=== PATIENT | male | born 1960 | race Caucasian/White ===

== ENCOUNTER 2017-04-20 00:33 | Emergency (ER) | payer MEDICAID, OTHER ==
[2017-04-20] MEDS ORDERED: Iopamidol 755 MG/ML 500 ML Multipack Bottle IVPUSH STA (01:13)
[2017-04-20] MEDS ORDERED: cefTRIAXone 1 GM in Premix Bag 1 BAG IV ONE (01:18)
--- NOTE | 2017-04-20 01:22 | EDM.PDOC ---
ED HPI GENERAL MEDICAL PROBLEM - General Chief Complaint: ENT Problem Stated Complaint: NECK SWELLING Time Seen by Provider: 04/20/17 01:12 - History of Present Illness INITIAL COMMENTS - FREE TEXT/NARRATIVE: HISTORY AND PHYSICAL: History of present illness: Patient 56-year-old white male who presents with a concern of dental abscess and submental pain patient states that swelling below his jaw and his anterior neck worse over the last 24 hours with pain he denies fever chills nausea vomiting he is extremely poor general dentition he denies shortness of breath denies stridor denies changes voice. Review of systems: As per history of present illness and below otherwise all systems reviewed and negative. Past medical history: As per history of present illness and as reviewed below otherwise noncontributory. Surgical history: As per history of present illness and as reviewed below otherwise noncontributory. Social history: No reported history of drug or alcohol abuse. Family history: As per history of present illness and as reviewed below otherwise noncontributory. Physical exam: HEENT: Atraumatic, normocephalic, pupils reactive, negative for conjunctival pallor or scleral icterus, mucous membranes moist, throat clear, neck supple, patient has some submental fullness and tenderness to palpation no discrete mass minimal erythema no induration no trismus no hot potato voice, trachea midline. Generally poor dentition with multiple dental caries and secondary dental fracture Lungs: Clear to auscultation, breath sounds equal bilaterally, chest nontender. Heart: S1S2, regular, negative for clicks, rubs, or JVD. Abdomen: Soft, nondistended, nontender. Negative for masses or hepatosplenomegaly. Negative for costovertebral tenderness. Pelvis: Stable nontender. Genitourinary: Deferred. Rectal: Deferred. Extremities: Atraumatic, negative for cords or calf pain. Neurovascular unremarkable. Neuro: Awake, alert, oriented. Cranial nerves II through XII unremarkable. Cerebellum unremarkable. Motor and sensory unremarkable throughout. Exam nonfocal. Diagnostics: CBC CMP CT neck x-ray mandible Therapeutics: Normal saline 1 L bolus clindamycin 900 mg IV Rocephin 1 g IV Impression: #1 dental abscess #2 rule out submental infection Definitive disposition and diagnosis as appropriate pending reevaluation and review of above. Left Lower Ear Pain Score (Numeric/FACES): 6 - Related Data Allergies Allergy/AdvReac Type Severity Reaction Status Date / Time No Known Allergies Allergy Verified 04/20/17 00:43 Home Meds: Home Meds Apixaban [Eliquis] 5 mg PO BID 04/20/17 [History] Aspirin 81 mg PO DAILY 04/20/17 [History] Gabapentin [Neurontin] 300 mg PO BID 04/20/17 [History] Morphine [MS Contin] 30 mg PO BID 04/20/17 [History] Prednisone [IJD: Prednisone] 5 mg PO DAILY 04/20/17 [History] oxyCODONE HCl/Acetaminophen [Percocet 10-325 mg Tablet] 10 mg PO QID 04/20/17 [ History] Past Medical History Other HEENT History: ear infection "couple of months ago" Cardiovascular History: Reports: Blood Clots/VTE/DVT, [place] Other Cardiovascular History: with 1 stent, blood clot right leg Other Genitourinary History: Bladder tumor Musculoskeletal History: Reports: Arthritis - Infectious Disease History Infectious Disease History: Reports: Chicken Pox, Measles, Mumps, Scarlet Fever Social & Family History - Family History Family Medical History: Noncontributory - Tobacco Use Smoking Status *Q: Former Smoker Used Tobacco, but Quit: Yes Month Tobacco Last Used: "months ago" - Caffeine Use Caffeine Use: Reports: Coffee Caffeine Use Comment: 2cups/week - Recreational Drug Use Recreational Drug Use: No ED ROS GENERAL - Review of Systems Review Of Systems: ROS reveals no pertinent complaints other than HPI. ED EXAM, GENERAL - Physical Exam Exam: See Below (See dictation) Course - Vital Signs Last Recorded V/S: Last Vital Signs Temp 37.1 C 04/20/17 02:34 Pulse 82 04/20/17 02:34 Resp 16 04/20/17 02:34 BP 150/70 H 04/20/17 02:34 Pulse Ox 98 04/20/17 02:34 - Orders/Labs/Meds Orders: Active Orders 24 hr Category Date Time Status Mandible Comp Min 4V [CR] Stat Exams 04/20/17 00:35 Taken Soft Tissue Neck w Cont [CT] Stat Exams 04/20/17 01:11 Taken CULTURE BLOOD [BC] Stat Lab 04/20/17 01:19 Results CULTURE BLOOD [BC] Stat Lab 04/20/17 01:29 Results Blood Culture x2 Reflex Set [OM.PC] Stat Oth 04/20/17 01:22 Ordered Labs: Laboratory Tests 04/20/17 04/20/17 04/20/17 Range/Units 01:15 01:15 01:15 WBC 14.70 H (4.0-11.0) K/uL RBC 4.44 L (4.50-5.90) M/uL Hgb 12.0 L (13.0-17.0) g/dL Hct 38.8 (38.0-50.0) % MCV 87.4 (80.0-98.0) fL MCH 27.0 (27.0-32.0) pg MCHC 30.9 L (31.0-37.0) g/dL RDW Std Deviation 50.0 (28.0-62.0) fl RDW Coeff of Dwain 16 H (11.0-15.0) % Plt Count 203 (150-400) K/uL MPV 10.50 (7.40-12.00) fL Neut % (Auto) 68.0 (48.0-80.0) % Lymph % (Auto) 21.3 (16.0-40.0) % [place] % (Auto) 8.2 (0.0-15.0) % Eos % (Auto) 2.2 (0.0-7.0) % Baso % (Auto) 0.3 (0.0-1.5) % Neut # (Auto) 10.0 H (1.4-5.7) K/uL Lymph # (Auto) 3.1 H (0.6-2.4) K/uL [place] # (Auto) 1.2 H (0.0-0.8) K/uL Eos # (Auto) 0.3 (0.0-0.7) K/uL Baso # (Auto) 0.0 (0.0-0.1) K/uL Nucleated RBC % 0.0 /100WBC Nucleated RBCs # 0 K/uL Lactate 1.7 (0.20-2.00) mmol/L Sodium 144 (136-146) mmol/L Potassium 3.7 (3.5-5.1) mmol/L Chloride 112 H (98-110) mmol/L Carbon Dioxide 22 (21-31) mmol/L BUN 13 (6.0-23.0) mg/dL Creatinine 0.8 (0.6-1.5) mg/dL Est Cr Clr Drug Dosing 121.71 mL/min Estimated GFR (MDRD) > 60.0 ml/min Glucose 91 (60-110) mg/dL Calcium 9.1 (8.8-10.8) mg/dL Total Bilirubin 0.3 (0.1-1.5) mg/dL AST 13 (5-40) IU/L ALT 18 (8-54) IU/L Alkaline Phosphatase 62 (40-150) Total Protein 6.9 (6.0-8.0) g/dL Albumin 3.8 (3.5-5.0) g/dL Globulin 3.1 (2.0-3.5) g/dL Albumin/Globulin Ratio 1.2 L (1.3-2.8) Meds: Medications Discontinued Medications Generic Name Dose Route Start Last Admin Trade Name Freq PRN Reason Stop Dose Admin Clindamycin Phosphate 900 mg/ 56 mls @ 100 mls/hr 04/20/17 01:18 04/20/17 02: 31 Sodium Chloride IV 04/20/17 01:49 Not Given ONETIME ONE Ceftriaxone Sodium/Dextrose 1 50 mls @ 100 mls/hr 04/20/17 01:18 04/20/17 01: 39 gm/ Premix IV 04/20/17 01:47 100 mls/hr ONETIME ONE Administration Clindamycin Phosphate 900 mg/ 50 mls @ 100 mls/hr 04/20/17 01:35 04/20/17 02: 28 Premix IV 04/20/17 02:04 100 mls/hr ONETIME ONE Administration Iopamidol 75 ml 04/20/17 01:13 04/20/17 01:14 Isovue Multipack-370 (76%) IVPUSH 04/20/17 01:14 80 ml ONETIME STA Administration Ketorolac Tromethamine 30 mg 04/20/17 01:50 04/20/17 01:55 Toradol IVPUSH 04/20/17 01:51 30 mg ONETIME ONE Administration Morphine Sulfate 2 mg 04/20/17 03:00 Morphine IVPUSH 04/20/17 03:01 ONETIME ONE Departure - Departure Time of Disposition: 03:09 Disposition: DC/Tfer to Other 70 Condition: good Clinical Impression: Abscess of submental region - Discharge Information Forms: ED Department Discharge - My Orders Last 24 Hours: My Active Orders 04/20/17 00:35 Mandible Comp Min 4V [CR] Stat 04/20/17 01:11 Soft Tissue Neck w Cont [CT] Stat 04/20/17 01:19 CULTURE BLOOD [BC] Stat 04/20/17 01:22 Blood Culture x2 Reflex Set [OM.PC] Stat 04/20/17 01:29 CULTURE BLOOD [BC] Stat - Assessment/Plan Last 24 Hours: My Active Orders 04/20/17 00:35 Mandible Comp Min 4V [CR] Stat 04/20/17 01:11 Soft Tissue Neck w Cont [CT] Stat 04/20/17 01:19 CULTURE BLOOD [BC] Stat 04/20/17 01:22 Blood Culture x2 Reflex Set [OM.PC] Stat 04/20/17 01:29 CULTURE BLOOD [BC] Stat
[2017-04-20] MEDS ORDERED: Clindamycin Phosphate in D5W 900 MG in Premix Bag 1 BAG IV ONE ×2 (01:35)
[2017-04-20] MEDS ORDERED: Ketorolac 30 MG/ML SDV IVPUSH ONE (01:50)
[2017-04-20 01:54] LABS: CHLORIDE,CL 112 mmol/L (98-110); SODIUM,NA 144 mmol/L (136-146)
[2017-04-20] MEDS ORDERED: Morphine 2 MG/ML Syringe IVPUSH ONE (03:00)
[2017-04-20 04:03] VITALS: BP 125/69
--- NOTE | 2017-04-21 15:08 | CR ---
EXAM DATE: 04/20/17 PATIENT'S AGE: 56 Patient: ELVIA HONEYCUTT Facility: [place], [place] Site . Site : 1960 Study: XRay Facial [id number]/21/2017 1:03:33 AM Ordering Physician: Doctor Christine Final Report: INDICATION: swelling to lt mandible without injury TECHNIQUE: Facial radiograph 3 views COMPARISON: None FINDINGS: Bones: Alignment is normal. No acute fractures or aggressive bone lesions identified. Sinuses and orbits: Unremarkable. Soft tissues: Unremarkable. No radiopaque foreign bodies are seen. IMPRESSION: 1. Unremarkable appearance of the mandible. Soft tissue abnormalities are better assessed by contrast enhanced CT. Dictated by: Eduar Modi MD @ 04/20/2017 01:06:20 (Electronic Signature) Report Signed by Proxy. [facility] IRV[facility] MEDICAL CENTERLupe
--- NOTE | 2017-04-21 15:09 | CT ---
EXAM DATE: 04/20/17 PATIENT'S AGE: 56 Patient: ELVIA HONEYCUTT Facility: [place], [place] Site Site : 1960 Study: CT ST Neck [id number]/21/2017 2:38:07 AM Ordering Physician: DOCTOR VERDUGO Final Report: INDICATION: Left facial swelling TECHNIQUE: CT soft tissue of the neck was acquired with i.v. contrast. Coronal and sagittal reformats were obtained. COMPARISON: None FINDINGS: Skull base: Multiple large bilateral dental cavities are noted within the mandibular and maxillary teeth. A retention cyst or polyp is present in the right maxillary sinus. Mucosal thickening is noted in the ethmoid sinuses bilaterally. Pharynx: There is an oblong fluid collection present within the left sublingual space with peripheral infiltration of the fat. It measures 2.7 x 0.8 cm. No retropharyngeal fluid collections are identified. No submandibular sialolith is seen. No CT evidence of tonsillar or peritonsillar abscess seen. The epiglottis is normal in appearance. There is an enhancing soft tissue nodule present within the right vallecula measuring 1.3 cm. Larynx and trachea: Unremarkable. Salivary glands: Unremarkable. Thyroid gland: Unremarkable. Vascular: Unremarkable for age. Bones: Unremarkable for age. Moderate degenerative disc narrowing is present at C4-5. Misc: There is a reactive 6 mm left sublingual lymph nodes seen. A 1 cm left hilar lymph node is present. Lung apices: Unremarkable. IMPRESSION: 1. There is an oblong fluid collection present within the left sublingual space with peripheral infiltration of the fat. It measures 2.7 x 0.8 cm. This may represent either a sublingual abscess or infected ranula. 2. There is a suspected enhancing nodule within the right vallecula. Further evaluation with direct visualization recommended to exclude a pharyngeal neoplasm. 3. Left jugular adenopathy noted. Dictated by Eduar Modi MD @ 04/20/2017 2:45:20 AM Dictated by: Eduar Modi MD @ 04/20/2017 02:45:28 (Electronic Signature) Report Signed by Proxy. ALLEN
== END 2017-04-20 04:01 | disposition other institution (70) ==
LOC: MW.ED 00:33
DX: L02.01 Cutaneous abscess of face (principal); K04.7 Periapical abscess without sinus; I25.2 Old myocardial infarction; M19.90 Unspecified osteoarthritis, unspecified site; Z87.891 Personal history of nicotine dependence; Z79.899 Other long term (current) drug therapy; Z79.82 Long term (current) use of aspirin
CPT/HCPCS: 36415; 70110; 70491; 80053; 83605; 85025; 87040; 96365; 96367; 96375; 99285; J0696; J1885; J2270; Q9967

== ENCOUNTER 2019-01-08 09:06 | Observation (INO) | payer MEDICAID ==
[2019-01-08] MEDS ORDERED: Sodium Chloride 0.9% 2.5 ML Syringe FLUSH PRN (09:10)
[2019-01-08] MEDS ORDERED: Sodium Chloride 0.9% 10 ML Syringe FLUSH PRN (09:10)
[2019-01-08] MEDS ORDERED: Ketorolac 30 MG/ML SDV IVPUSH ONE (09:29)
--- NOTE | 2019-01-08 09:29 | EDM.PDOC ---
ED HPI GENERAL MEDICAL PROBLEM - General Chief Complaint: Chest Pain Stated Complaint: CHEAT PAIN Time Seen by Provider: 01/08/19 09:20 Source of Information: Reports: Patient History Limitations: Reports: No Limitations - History of Present Illness INITIAL COMMENTS - FREE TEXT/NARRATIVE: History of present illness: []Patient was cleaning his bathroom 5 days ago with each and inhaled therapy and inhaled chemical that caused burning in his lungs. Patient was fine for a few days then 2 days ago he started having 10/10 severe chest pain with breathing. Denies any other trauma. Patient does have a history of reactive stent placement and as a DVT in his leg approximately 3 years ago. His chest pain now is 6/10 he was brought in by EMS given 2 nitroglycerin sprays and 4 baby aspirin in route. Review of systems: As per history of present illness and below otherwise all systems reviewed and negative. Past medical history: As per history of present illness and as reviewed below otherwise noncontributory. Surgical history: As per history of present illness and as reviewed below otherwise noncontributory. Social history: No reported history of drug or alcohol abuse. Family history: As per history of present illness and as reviewed below otherwise noncontributory. Physical exam: General: Well developed, well nourished in NAD HEENT: Atraumatic, normocephalic, pupils reactive, negative for conjunctival pallor or scleral icterus, mucous membranes moist, throat clear, neck supple, nontender, trachea midline. Lungs: Clear to auscultation, breath sounds equal bilaterally, chest nontender. Heart: S1S2, regular, negative for clicks, rubs, or JVD. Abdomen: NABS, Soft, nondistended, nontender. Negative for masses or hepatosplenomegaly. Negative for costovertebral tenderness. Pelvis: Stable nontender. Genitourinary: Deferred. Rectal: Deferred. Extremities: Atraumatic, negative for cords or calf pain. Neurovascular unremarkable. Neuro: Awake, alert, oriented. Cranial nerves II through XII unremarkable. Cerebellum unremarkable. Motor and sensory unremarkable throughout. Exam nonfocal. Skin:warm and dry Diagnostics: CBC, chemistry, troponin, chest x-ray, EKG, d-dimer, CT angiogram of his chest- moderate load of central clot Therapeutics: There initially was going to start heparin however Dr. Crockett requested Lovenox ED Course: She remained stable he is admitted to Dr. Doan hospitalists Impression: PE Prescriptions: On Plan: Admit for observation Definitive disposition and diagnosis as appropriate pending reevaluation and review of above. i Chest Pain Score (Numeric/FACES): 6 - Related Data Allergies Allergy/AdvReac Type Severity Reaction Status Date / Time No Known Allergies Allergy Verified 01/08/19 09:18 Home Meds: Home Meds Aspirin 81 mg PO DAILY 04/20/17 [History] Gabapentin [Neurontin] 300 mg PO BID 04/20/17 [History] Morphine [MS Contin] 30 mg PO BID 04/20/17 [History] Prednisone [IJD: Prednisone] 5 mg PO DAILY 04/20/17 [History] oxyCODONE HCl/Acetaminophen [Percocet 10-325 mg Tablet] 10 mg PO QID 04/20/17 [ History] Ranitidine HCl [Ranitidine] 300 mg PO BID 01/08/19 [History] atorvaSTATin [Lipitor] 1 tab DAILY 01/08/19 [History] Past Medical History Other HEENT History: ear infection "couple of months ago" Cardiovascular History: Reports: Blood Clots/VTE/DVT, [place], Stents Other Cardiovascular History: with 1 stent, blood clot right leg Other Genitourinary History: Bladder tumor Musculoskeletal History: Reports: Arthritis Hematologic History: Reports: Anticoagulation Therapy - Infectious Disease History Infectious Disease History: Reports: Chicken Pox, Measles, Mumps, Scarlet Fever - Past Surgical History HEENT Surgical History: Reports: Adenoidectomy, Tonsillectomy Social & Family History - Family History Family Medical History: Noncontributory - Tobacco Use Smoking Status *Q: Former Smoker Used Tobacco, but Quit: Yes Month/Year Tobacco Last Used: 2015 - Caffeine Use Caffeine Use: Reports: Coffee Caffeine Use Comment: 2cups/week - Recreational Drug Use Recreational Drug Use: No ED ROS GENERAL - Review of Systems Review Of Systems: ROS reveals no pertinent complaints other than HPI. ED EXAM, GENERAL - Physical Exam Exam: See Below (See history of present illness) Course - Vital Signs Last Recorded V/S: Last Vital Signs Temp 99.2 F 01/08/19 09:14 Pulse 87 01/08/19 15:30 Resp 20 01/08/19 16:00 BP 129/85 01/08/19 16:30 Pulse Ox 95 01/08/19 16:00 - Orders/Labs/Meds Orders: Active Orders 24 hr Category Date Time Status EKG Documentation Completion [RC] STAT Care 01/08/19 09:10 Active Sodium Chloride 0.9% [Saline Flush] Med 01/08/19 09:10 Active 10 ml FLUSH ASDIRECTED PRN Sodium Chloride 0.9% [Saline Flush] Med 01/08/19 09:10 Active 2.5 ml FLUSH ASDIRECTED PRN Saline Lock Insert [OM.PC] Stat Oth 01/08/19 09:10 Ordered Medication Orders Acetaminophen (Tylenol) 650 mg PO Q4H PRN PRN Reason: Pain (mild 1-3) Albuterol (Proventil Neb Soln) 2.5 mg NEB Q2H PRN PRN Reason: Shortness Of Breath/wheezing Aspirin (Aspirin) 81 mg PO DAILY [facility] Atorvastatin Calcium (Lipitor) 10 mg PO DAILY [facility] Enoxaparin Sodium (Lovenox) 90 mg SUBCUT Q12HR [facility] Gabapentin (Neurontin) 300 mg PO BID [facility] Hydromorphone HCl (Dilaudid) 1 mg IVPUSH Q3H PRN PRN Reason: Pain (severe 7-10) Morphine Sulfate (Ms Contin) 30 mg PO BID [facility] Ondansetron HCl (Zofran) 4 mg IVPUSH Q4H PRN PRN Reason: Nausea Oxycodone/Acetaminophen (Percocet 325-10 Mg) 1 tab PO QID [facility] Last Admin: 01/08/19 18:03 Dose: 1 tab Prednisone (Prednisone) 5 mg PO DAILY [facility] Ranitidine HCl (Zantac) 300 mg PO BID [facility] Sodium Chloride (Saline Flush) 10 ml FLUSH ASDIRECTED PRN PRN Reason: Keep Vein Open Sodium Chloride (Saline Flush) 2.5 ml FLUSH ASDIRECTED PRN PRN Reason: Keep Vein Open Labs: Laboratory Tests 01/08/19 01/08/19 01/08/19 Range/Units 09:20 09:20 09:20 WBC 14.70 H (4.0-11.0) K/uL RBC 5.00 (4.50-5.90) M/uL Hgb 14.6 (13.0-17.0) g/dL Hct 43.9 (38.0-50.0) % MCV 87.8 (80.0-98.0) fL MCH 29.2 (27.0-32.0) pg MCHC 33.3 (31.0-37.0) g/dL RDW Std Deviation 51.0 (28.0-62.0) fl RDW Coeff of Dwain 16 H (11.0-15.0) % Plt Count 191 (150-400) K/uL MPV 11.00 (7.40-12.00) fL Neut % (Auto) 60.3 (48.0-80.0) % Lymph % (Auto) 23.7 (16.0-40.0) % [place] % (Auto) 11.8 (0.0-15.0) % Eos % (Auto) 3.7 (0.0-7.0) % Baso % (Auto) 0.5 (0.0-1.5) % Neut # (Auto) 8.9 H (1.4-5.7) K/uL Lymph # (Auto) 3.5 H (0.6-2.4) K/uL [place] # (Auto) 1.7 H (0.0-0.8) K/uL Eos # (Auto) 0.6 (0.0-0.7) K/uL Baso # (Auto) 0.1 (0.0-0.1) K/uL Nucleated RBC % 0.0 /100WBC Nucleated RBCs # 0 K/uL D-Dimer, Quantitative 9.20 H (0.0-0.50) mg/L FEU Sodium 141 (136-148) mmol/L Potassium 3.7 (3.5-5.1) mmol/L Chloride 105 (98-107) mmol/L Carbon Dioxide 21.3 (21.0-32.0) mmol/L BUN 22 H (7.0-18.0) mg/dL Creatinine 1.1 (0.8-1.3) mg/dL Est Cr Clr Drug Dosing 89.87 mL/min Estimated GFR (MDRD) > 60.0 ml/min Glucose 105 (74-106) mg/dL Calcium 9.6 (8.5-10.1) mg/dL Total Bilirubin 0.5 (0.2-1.0) mg/dL AST 18 (15-37) IU/L ALT 27 (14-63) IU/L Alkaline Phosphatase 75 (46-116) U/L Troponin I < 0.050 (0.000-0.056) ng/mL Total Protein 7.5 (6.4-8.2) g/dL Albumin 3.6 (3.4-5.0) g/dL Globulin 3.9 (2.6-4.0) g/dL Albumin/Globulin Ratio 0.9 (0.9-1.6) Meds: Medications Generic Name Dose Route Start Last Admin Trade Name Corrie PRN Reason Stop Dose Admin Acetaminophen 650 mg 01/08/19 16:28 Tylenol PO Q4H PRN Pain (mild 1-3) Albuterol 2.5 mg 01/08/19 16:28 Proventil Neb Soln NEB Q2H PRN Shortness Of Breath/wheezing Aspirin 81 mg 01/09/19 09:00 Aspirin PO DAILY [facility] Atorvastatin Calcium 10 mg 01/09/19 09:00 Lipitor PO DAILY [facility] Enoxaparin Sodium 90 mg 01/09/19 03:00 Lovenox SUBCUT Q12HR [facility] Gabapentin 300 mg 01/08/19 21:00 Neurontin PO BID [facility] Hydromorphone HCl 1 mg 01/08/19 16:28 Dilaudid IVPUSH Q3H PRN Pain (severe 7-10) Morphine Sulfate 30 mg 01/08/19 21:00 Ms Contin PO BID [facility] Ondansetron HCl 4 mg 01/08/19 16:28 Zofran IVPUSH Q4H PRN Nausea Oxycodone/Acetaminophen 1 tab 01/08/19 18:00 01/08/19 18:03 Percocet 325-10 Mg PO 1 tab QID [facility] Administration Prednisone 5 mg 01/09/19 09:00 Prednisone PO DAILY [facility] Ranitidine HCl 300 mg 01/08/19 21:00 Zantac PO BID [facility] Sodium Chloride 10 ml 01/08/19 09:10 Saline Flush FLUSH ASDIRECTED PRN Keep Vein Open Sodium Chloride 2.5 ml 01/08/19 09:10 Saline Flush FLUSH ASDIRECTED PRN Keep Vein Open Discontinued Medications Generic Name Dose Route Start Last Admin Trade Name Corrie PRN Reason Stop Dose Admin Enoxaparin Sodium 91 mg 01/08/19 14:55 01/08/19 15:37 Lovenox SUBCUT 01/08/19 14:56 91 mg ONETIME ONE Administration Iopamidol 50 ml 01/08/19 16:05 01/08/19 16:05 Isovue Multipack-370 (76%) IVPUSH 01/08/19 16:06 50 ml ONETIME STA Administration Ketorolac Tromethamine 30 mg 01/08/19 09:29 01/08/19 09:42 Toradol IVPUSH 01/08/19 09:30 30 mg ONETIME ONE Administration Departure - Departure Time of Disposition: 19:16 Disposition: Admitted As Inpatient 66 Condition: Good Clinical Impression: Pulmonary embolus Qualifiers: Pulmonary embolism type: other Chronicity: acute Acute cor pulmonale presence: without acute cor pulmonale Qualified Code(s): I26.99 - Other pulmonary embolism without acute cor pulmonale - My Orders Last 24 Hours: My Active Orders 01/08/19 09:10 EKG Documentation Completion [RC] STAT Sodium Chloride 0.9% [Saline Flush] 10 ml FLUSH ASDIRECTED PRN Sodium Chloride 0.9% [Saline Flush] 2.5 ml FLUSH ASDIRECTED PRN Saline Lock Insert [OM.PC] Stat - Assessment/Plan Last 24 Hours: My Active Orders 01/08/19 09:10 EKG Documentation Completion [RC] STAT Sodium Chloride 0.9% [Saline Flush] 10 ml FLUSH ASDIRECTED PRN Sodium Chloride 0.9% [Saline Flush] 2.5 ml FLUSH ASDIRECTED PRN Saline Lock Insert [OM.PC] Stat
[2019-01-08 09:54] LABS: CHLORIDE,CL 105 mmol/L (98-107); SODIUM,NA 141 mmol/L (136-148)
--- NOTE | 2019-01-08 10:39 | CR ---
EXAMINATION: Portable chest radiograph. HISTORY: Shortness of breath. FINDINGS: The trachea is midline. The cardiomediastinal silhouette is within normal limits. No pulmonary infiltrates, effusions or pneumothorax. Mild interstitial prominence. Advanced degenerative changes within the shoulders and generalized osteopenia. IMPRESSION: No acute cardiopulmonary process.
--- NOTE | 2019-01-08 13:05 | PCM.SN ---
- Free Text/Narrative Note: Called to ED Room 4 by RN. RN unable to gain IV access needed for CTA. Placed 18g 1.88 inch IV to right brachial vein using ultrasound x 1 attempt. Pt tolerated well.
--- NOTE | 2019-01-08 14:41 | CT ---
EXAMINATION: CTA chest HISTORY: Positive d-dimer and shortness of breath COMPARISON: Radiographs dated 01/08/2019. TECHNIQUE: Axial CT imaging obtained through the chest following the administration of 50 mL of Isovue-370 in the right antecubital fossa. Coronal and sagittal reconstructions obtained. FINDINGS: Mild emphysematous changes and atelectasis noted. No focal consolidation. Trace left pleural effusion is noted. The heart is normal in size without a pericardial effusion. There are a few central pulmonary arteries noted bilaterally with a moderate clot burden for the most part there is distal opacification beyond the clot except for the left apex. There is no significant right ventricular enlargement. No mediastinal, hilar, or axillary lymphadenopathy. Coronary artery calcifications are noted. No suspicious osseous abnormality is identified. Severe joint space narrowing within the glenohumeral joints bilaterally. IMPRESSION: 1. Bilateral central pulmonary emboli with a moderate clot burden. 2. Trace left pleural effusion.
[2019-01-08] MEDS ORDERED: Heparin Sodium 5,000 Units/ML Vial IVPUSH ONE (14:51)
[2019-01-08] MEDS ORDERED: Enoxaparin 100 MG/1 ML Syringe SUBCUT ONE (14:55)
--- NOTE | 2019-01-08 15:54 | PCM.HP ---
<Sophie Pena M - Last Filed: 01/08/19 16:34> H&P History of Present Illness - General Date of Service: 01/08/19 Admit Problem/Dx: Pulmonary emboli Source of Information: Patient History Limitations: Reports: No Limitations - History of Present Illness Initial Comments - Free Text/Narative: This 58 year old male with pmh of RA, chronic pain, CAD with stenting and DVT to lower extremity presented to the ED today via EMS with dyspnea and chest pain. He states this started yesterday and progressively worsened overnight to the point he was extremely short of breath. He reports the pain is on the L side , mainly when he coughs, takes a deep breath or even burps. He reports he felt it was a pulled muscle at first. The pain is sharp shooting in nature. improved with rest. He did try taking his own pain medication but felt it was not effective. In the ED leukocytosis noted, 14,000 and D Dimer elevated at 9.20, otherwise other labs were WNL. Chest Xray negative. CT angio obtained and revealed bilateral central pulmonary emboli with moderate clot burden. He was given Lovenox in the ED and will be admitted observation PCP, Dr Dhaliwal Chest Pain Score (Numeric/FACES): 6 - Related Data Allergies/Adverse Reactions: Allergies Allergy/AdvReac Type Severity Reaction Status Date / Time No Known Allergies Allergy Verified 01/08/19 09:18 Home Medications: Home Meds RX: Aspirin 81 mg PO DAILY 04/20/17 [History] RX: Gabapentin [Neurontin] 300 mg PO BID 04/20/17 [History] RX: Morphine [MS Contin] 30 mg PO BID 04/20/17 [History] RX: Prednisone [IJD: Prednisone] 5 mg PO DAILY 04/20/17 [History] RX: oxyCODONE HCl/Acetaminophen [Percocet 10-325 mg Tablet] 10 mg PO QID [History] RX: Ranitidine HCl [Ranitidine] 300 mg PO BID 01/08/19 [History] RX: atorvaSTATin [Lipitor] 1 tab DAILY 01/08/19 [History] Apixaban [Eliquis] 5 mg PO BID #60 tablet 01/09/19 [Rx] Past Medical History Other HEENT History: ear infection "couple of months ago" Cardiovascular History: Reports: Blood Clots/VTE/DVT, High Cholesterol, OR, Stents Other Cardiovascular History: with 1 stent, blood clot right leg Respiratory History: Reports: None Gastrointestinal History: Reports: None Other Genitourinary History: Bladder tumor Musculoskeletal History: Reports: Arthritis Hematologic History: Reports: Anticoagulation Therapy - Infectious Disease History Infectious Disease History: Reports: Chicken Pox, Measles, Mumps, Scarlet Fever - Past Surgical History HEENT Surgical History: Reports: Adenoidectomy, Tonsillectomy Cardiovascular Surgical History: Reports: Coronary Artery Stent Social & Family History - Family History Family Medical History: Noncontributory - Tobacco Use Smoking Status *Q: Former Smoker Used Tobacco, but Quit: Yes Month/Year Tobacco Last Used: 2015 - Caffeine Use Caffeine Use: Reports: Coffee Caffeine Use Comment: 2cups/week - Recreational Drug Use Recreational Drug Use: No - Living Situation & Occupation Living situation: Reports: Alone Occupation: Disabled H&P Review of Systems - Review of Systems: Review Of Systems: See Below General: Denies: Fever, Chills, Weakness HEENT: Reports: No Symptoms. Denies: Headaches Pulmonary: Reports: Shortness of Breath, Pleuritic Chest Pain. Denies: Cough, Sputum Cardiovascular: Reports: Chest Pain, Dyspnea on Exertion. Denies: Edema, Syncope Gastrointestinal: Reports: No Symptoms. Denies: Abdominal Pain, Black Stool, Bloody Stool, Nausea, Vomiting Genitourinary: Reports: No Symptoms Musculoskeletal: Reports: Other (generalized pain from RA, chronic). Denies: Neck Pain, Leg Pain Skin: Reports: No Symptoms Psychiatric: Reports: No Symptoms Neurological: Reports: No Symptoms Hematologic/Lymphatic: Reports: No Symptoms Immunologic: Reports: No Symptoms Exam - Exam Exam: See Below - Vital Signs Vital Signs: Last Vital Signs Temp 99.2 F 01/08/19 09:14 Pulse 102 H 01/08/19 14:45 Resp 18 01/08/19 14:45 BP 131/90 01/08/19 14:45 Pulse Ox 96 01/08/19 14:45 Weight: 91.626 kg - Exam Quality Assessment: Supplemental Oxygen General: Alert, Oriented, Cooperative HEENT: Conjunctiva Clear, Mucosa Moist & [place] Neck: Supple, Trachea Midline Lungs: Decreased Breath Sounds (bibasilar), Other (dyspnea with speech). No: Wheezing Cardiovascular: Regular Rate, Regular Rhythm. No: Tachycardia GI/Abdominal Exam: Normal Bowel Sounds, Soft Extremities: Normal Inspection, Normal Range of Motion, Non-Tender, No Pedal Edema. No: Redness Peripheral Pulses: 2+: Posterior Tibial (L), Posterior Tibial (R), Dorsalis Pedis (L), Dorsalis Pedis (R) Neuro Extensive - Mental Status: Alert, Oriented x3, Normal Mood/Affect Neuro Extensive - Motor, Sensory, Reflexes: CN II-XII Intact Psychiatric: Alert, Normal Affect, Normal Mood - Patient Data Lab Results Last 24 hrs: Laboratory Results - last 24 hr 01/08/19 01/08/19 01/08/19 Range/Units 09:20 09:20 09:20 WBC 14.70 H (4.0-11.0) K/uL RBC 5.00 (4.50-5.90) M/uL Hgb 14.6 (13.0-17.0) g/dL Hct 43.9 (38.0-50.0) % MCV 87.8 (80.0-98.0) fL MCH 29.2 (27.0-32.0) pg MCHC 33.3 (31.0-37.0) g/dL RDW Std Deviation 51.0 (28.0-62.0) fl RDW Coeff of Dwain 16 H (11.0-15.0) % Plt Count 191 (150-400) K/uL MPV 11.00 (7.40-12.00) fL Neut % (Auto) 60.3 (48.0-80.0) % Lymph % (Auto) 23.7 (16.0-40.0) % [place] % (Auto) 11.8 (0.0-15.0) % Eos % (Auto) 3.7 (0.0-7.0) % Baso % (Auto) 0.5 (0.0-1.5) % Neut # (Auto) 8.9 H (1.4-5.7) K/uL Lymph # (Auto) 3.5 H (0.6-2.4) K/uL [place] # (Auto) 1.7 H (0.0-0.8) K/uL Eos # (Auto) 0.6 (0.0-0.7) K/uL Baso # (Auto) 0.1 (0.0-0.1) K/uL Nucleated RBC % 0.0 /100WBC Nucleated RBCs # 0 K/uL D-Dimer, Quantitative 9.20 H (0.0-0.50) mg/L FEU Sodium 141 (136-148) mmol/L Potassium 3.7 (3.5-5.1) mmol/L Chloride 105 (98-107) mmol/L Carbon Dioxide 21.3 (21.0-32.0) mmol/L BUN 22 H (7.0-18.0) mg/dL Creatinine 1.1 (0.8-1.3) mg/dL Est Cr Clr Drug Dosing 89.87 mL/min Estimated GFR (MDRD) > 60.0 ml/min Glucose 105 (74-106) mg/dL Calcium 9.6 (8.5-10.1) mg/dL Total Bilirubin 0.5 (0.2-1.0) mg/dL AST 18 (15-37) IU/L ALT 27 (14-63) IU/L Alkaline Phosphatase 75 (46-116) U/L Troponin I < 0.050 (0.000-0.056) ng/mL Total Protein 7.5 (6.4-8.2) g/dL Albumin 3.6 (3.4-5.0) g/dL Globulin 3.9 (2.6-4.0) g/dL Albumin/Globulin Ratio 0.9 (0.9-1.6) Result Diagrams: 01/08/19 09:20 01/08/19 09:20 EKG INTERPRETATION EKG Date: 01/08/19 Rhythm: NSR Rate (Beats/Min): 80 P-Wave: Present QRS: Normal ST-T: Normal QT: Normal - Problem List (1) Pulmonary emboli SNOMED Code(s): 25864575 ICD Code: I26.99 - OTHER PULMONARY EMBOLISM WITHOUT ACUTE COR PULMONALE Status: Acute Qualifiers: Pulmonary embolism type: other Chronicity: acute Acute cor pulmonale presence: without acute cor pulmonale Qualified Code(s): I26.99 - Other pulmonary embolism without acute cor pulmonale (2) Hx of deep venous thrombosis SNOMED Code(s): 139233481 ICD Code: Z86.718 - PERSONAL HISTORY OF OTHER VENOUS THROMBOSIS AND EMBOLISM Status: Chronic (3) Rheumatoid arthritis SNOMED Code(s): 35998821 ICD Code: M06.9 - RHEUMATOID ARTHRITIS, UNSPECIFIED Status: Chronic Qualifiers: Rheumatoid factor presence: unspecified presence Laterality: bilateral (4) Chronic pain SNOMED Code(s): 97827753 ICD Code: G89.29 - OTHER CHRONIC PAIN Status: Chronic (5) Chronic narcotic use SNOMED Code(s): 35185867 ICD Code: F11.90 - OPIOID USE, UNSPECIFIED, UNCOMPLICATED Status: Chronic (6) CAD (coronary artery disease) SNOMED Code(s): 45156700 ICD Code: I25.10 - ATHSCL HEART DISEASE OF [place] CORONARY ARTERY W/O ANG PCTRS Status: Chronic Problem List Initiated/Reviewed/Updated: Yes Orders Last 24hrs: Active Orders 24 hr Category Date Time Status EKG Documentation Completion [RC] STAT Care 01/08/19 09:10 Active Sodium Chloride 0.9% [Saline Flush] Med 01/08/19 09:10 Active 10 ml FLUSH ASDIRECTED PRN Sodium Chloride 0.9% [Saline Flush] Med 01/08/19 09:10 Active 2.5 ml FLUSH ASDIRECTED PRN Saline Lock Insert [OM.PC] Stat Oth 01/08/19 09:10 Ordered Medication Orders Sodium Chloride (Saline Flush) 10 ml FLUSH ASDIRECTED PRN PRN Reason: Keep Vein Open Sodium Chloride (Saline Flush) 2.5 ml FLUSH ASDIRECTED PRN PRN Reason: Keep Vein Open Assessment/Plan Comment:: This 58 year old male admitted with acute pulmonary emboli 1. Pulmonary emboli: Dr Crockett requested Lovenox full dose, will continue. Has been on Eliquis in past for DVT. Will obtain lower leg dopplers. He denies leg pain or swelling, no numbness or tingling. Monitor on telemetry and pulse ox continuously. Pain management and oxygen PRN to keep sats above 90% 2. Chest pain: Likely secondary to PE, but will trend enzymes due to history of CAD and OR with stenting. 3. RA and chronic pain: COntinue MS contin and Percocet. IV pain meds for breakthrough pain. 4. Hypercholesterolemia: Continue statin. VTE: Full anticoagulation for current PE. Dispo: 1-2 days pending improvement. <Alonzo Crockett - Last Filed: 01/10/19 15:01> H&P History of Present Illness - General Admit Problem/Dx: Admission Diagnosis/Problem Admission Diagnosis/Problem Pulmonary embolism I have seen and examined the patient independently of Sophie Pena CNP. I have discussed the case with her. I agree with the assessment and plan of care outlined for this patient. Please see orders. Exam - Vital Signs Vital Signs: Last Vital Signs Temp 36.5 C 01/09/19 12:00 Pulse 109 H 01/09/19 12:00 Resp 18 01/09/19 12:00 BP 127/94 H 01/09/19 12:00 Pulse Ox 95 01/09/19 12:00 - Patient Data Result Diagrams: 01/09/19 06:28 01/09/19 06:28
[2019-01-08] MEDS ORDERED: Iopamidol 755 MG/ML 500 ML Multipack Bottle IVPUSH STA (16:05)
[2019-01-08] MEDS ORDERED: Albuterol 0.083% 2.5 MG/3 ML Neb Soln NEB PRN (16:28)
[2019-01-08] MEDS ORDERED: HYDROmorphone 1 MG/ML Syringe IVPUSH PRN (16:28)
[2019-01-08] MEDS ORDERED: Ondansetron 4 MG/2 ML SDV IVPUSH PRN (16:28)
[2019-01-08] MEDS ORDERED: Acetaminophen 325 MG Tab PO PRN (16:28)
--- NOTE | 2019-01-08 17:49 | US ---
INDICATION: Right leg swelling. Shortness of breath. Positive pulmonary embolism. TECHNIQUE: Ultrasound venous duplex lower extremity bilateral. Compression venous exam was performed using garcía-scale, color Doppler, and spectral Doppler imaging. COMPARISON: None. FINDINGS: Acute nonocclusive deep venous thrombosis is present in the right external iliac, common femoral, superficial femoral, deep femoral, and popliteal veins. All veins in the left lower extremity are patent. IMPRESSION: Extensive acute deep venous thrombosis in the right lower extremity. Left lower extremity veins are normal. Dictated by Jason Powers MD @ Jan 08 2019 5:45PM Signed by Dr. Jason Powers @ Jan 08 2019 5:48PM
[2019-01-08] MEDS: Acetaminophen/oxyCODONE 325-10 MG Tab PO SCH (18:03)
[2019-01-08] MEDS ORDERED: Ranitidine 15 MG/ML Syrup 10 ML UD Cup PO ONE (21:00)
[2019-01-08] MEDS: Morphine 30 MG Tab.ER PO SCH (21:46)
[2019-01-08] MEDS: Gabapentin 300 MG Cap PO SCH (21:47)
[2019-01-08] MEDS: Ranitidine 15 MG/ML Syrup 10 ML UD Cup PO SCH (21:48)
[2019-01-09] MEDS: Acetaminophen/oxyCODONE 325-10 MG Tab PO SCH ×3 (00:09→12:04)
[2019-01-09] MEDS: Enoxaparin 100 MG/1 ML Syringe SUBCUT SCH ×2 (03:38→09:46)
[2019-01-09 07:01] LABS: CHLORIDE,CL 107 mmol/L (98-107); SODIUM,NA 141 mmol/L (136-148)
[2019-01-09] MEDS ORDERED: Ranitidine 15 MG/ML Syrup 10 ML UD Cup PO ONE (09:00)
[2019-01-09] MEDS ORDERED: predniSONE 5 MG Tab PO SCH (09:00)
[2019-01-09] MEDS ORDERED: Aspirin 81 MG Tab.Chew PO SCH (09:00)
[2019-01-09] MEDS ORDERED: atorvaSTATin 10 MG Tab PO SCH (09:00)
[2019-01-09] MEDS: Gabapentin 300 MG Cap PO SCH (09:44)
[2019-01-09] MEDS: Ranitidine 15 MG/ML Syrup 10 ML UD Cup PO SCH (09:44)
[2019-01-09] MEDS: Morphine 30 MG Tab.ER PO SCH (09:45)
--- NOTE | 2019-01-09 12:07 | PCM.DCSUM1 ---
Discharge Summary - Hospital Course Free Text/Narrative:: Bilateral pulmonary emboli Diagnosis: Stroke: No - Discharge Data Discharge Date: 01/09/19 Discharge Disposition: Home, Self-Care 01 Condition: Good - Patient Summary/Data Hospital Course: The patient is a 58-year-old gentleman who had presented to the emergency department yesterday with chest pain. The patient was reported to have pain when he took a deep breath and predominantly located on his left side. The patient also has a history of rheumatoid arthritis, chronic pain, coronary artery disease and lower extremity DVTs. The patient was admitted secondary to bilateral pulmonary emboli. The patient was noted to have bilateral central pulmonary emboli with a moderate clot burden. Because of the nature of the patient's pulmonary emboli the patient was admitted to observation and he was started on treatment dose of Lovenox. The patient was dosed at 1 mg/kg subcutaneous daily. The patient was noted during monitoring to be otherwise hemodynamically stable. By day of discharge the patient's vital signs were stable with a blood pressure 110/71 mmHg. His pulse was 89 bpm and his oxygen saturation was at 95% on room air. Patient had some mild residual pain in his left lower chest wall. The patient also had 3 sets of troponin that were noted to be undetectable. The patient's leukocytosis had improved and it was started to be secondary to demarginalization because of the pulmonary emboli. A long discussion was held with the patient for the benefits, risks and alternatives of Coumadin and novel oral anticoagulant agents. It was elected along with the patient's choice up a slip patient on Elliquis 5 mg by mouth twice a day. The patient has been recommended to continue with his activity as tolerated. He is also to have his diet as tolerated as well. Because of the patient having a history of lower extremity DVTs and a hypercoagulable state as rheumatoid arthritis the patient is likely to have anticoagulation indefinitely. The patient is to follow-up with his primary care physician. The patient also has been hemodynamically stable and is discharged from acute hospitalization for the recommendations above. - Patient Instructions Diet: Heart Healthy Diet Activity: As Tolerated - Discharge Plan *PRESCRIPTION DRUG MONITORING PROGRAM REVIEWED*: No *COPY OF PRESCRIPTION DRUG MONITORING REPORT IN PATIENT ARVIN: No Prescriptions/Med Rec: Apixaban [Eliquis] 5 mg PO BID #60 tablet Home Medications: Home Meds Aspirin 81 mg PO DAILY 04/20/17 [History] Gabapentin [Neurontin] 300 mg PO BID 04/20/17 [History] Morphine [MS Contin] 30 mg PO BID 04/20/17 [History] Prednisone [IJD: Prednisone] 5 mg PO DAILY 04/20/17 [History] oxyCODONE HCl/Acetaminophen [Percocet 10-325 mg Tablet] 10 mg PO QID 04/20/17 [ History] Ranitidine HCl [Ranitidine] 300 mg PO BID 01/08/19 [History] atorvaSTATin [Lipitor] 1 tab DAILY 01/08/19 [History] Apixaban [Eliquis] 5 mg PO BID #60 tablet 01/09/19 [Rx] Oxygen Therapy Mode: Room Air Patient Handouts: Pulmonary Embolism, Apixaban oral tablets Referrals: Trent Dhaliwal MD [Ordering Only Provider] - (Please call on Friday and schedule a follow up appointment for 7-10 days.) - Discharge Summary/Plan Comment DC Time >30 min.: Yes - General Info Date of Service: 01/09/19 Admission Dx/Problem (Free Text: Bilateral pulmonary emboli. Doing better today. Breathing better. Functional Status: Reports: Pain Controlled, Tolerating Diet - Review of Systems General: Reports: No Symptoms HEENT: Reports: No Symptoms Pulmonary: Reports: No Symptoms Cardiovascular: Reports: No Symptoms Gastrointestinal: Reports: No Symptoms Genitourinary: Reports: No Symptoms Musculoskeletal: Reports: No Symptoms Skin: Reports: No Symptoms Neurological: Reports: No Symptoms Psychiatric: Reports: No Symptoms - Patient Data Vitals - Most Recent: Last Vital Signs Temp 36.8 C 01/09/19 08:00 Pulse 89 01/09/19 08:00 Resp 19 01/09/19 08:00 BP 110/71 01/09/19 08:00 Pulse Ox 93 L 01/09/19 08:00 Weight - Most Recent: 88.677 kg I&O - Last 24 hours: Intake & Output 01/08/19 01/09/19 01/09/19 22:59 06:59 14:59 Intake Total 200 Balance 200 Lab Results - Last 24 hrs: Laboratory Results - last 24 hr 01/08/19 01/08/19 01/09/19 Range/Units 17:38 22:45 06:28 WBC 11.96 H (4.0-11.0) K/uL RBC 4.78 (4.50-5.90) M/uL Hgb 14.1 (13.0-17.0) g/dL Hct 42.0 (38.0-50.0) % MCV 87.9 (80.0-98.0) fL MCH 29.5 (27.0-32.0) pg MCHC 33.6 (31.0-37.0) g/dL RDW Std Deviation 50.9 (28.0-62.0) fl RDW Coeff of Dwain 16 H (11.0-15.0) % Plt Count 173 (150-400) K/uL MPV 10.60 (7.40-12.00) fL Neut % (Auto) 57.9 (48.0-80.0) % Lymph % (Auto) 24.6 (16.0-40.0) % [place] % (Auto) 13.9 (0.0-15.0) % Eos % (Auto) 3.2 (0.0-7.0) % Baso % (Auto) 0.4 (0.0-1.5) % Neut # (Auto) 6.9 H (1.4-5.7) K/uL Lymph # (Auto) 2.9 H (0.6-2.4) K/uL [place] # (Auto) 1.7 H (0.0-0.8) K/uL Eos # (Auto) 0.4 (0.0-0.7) K/uL Baso # (Auto) 0.1 (0.0-0.1) K/uL Nucleated RBC % 0.0 /100WBC Nucleated RBCs # 0 K/uL Sodium (136-148) mmol/L Potassium (3.5-5.1) mmol/L Chloride (98-107) mmol/L Carbon Dioxide (21.0-32.0) mmol/L BUN (7.0-18.0) mg/dL Creatinine (0.8-1.3) mg/dL Est Cr Clr Drug Dosing mL/min Estimated GFR (MDRD) ml/min Glucose (74-106) mg/dL Calcium (8.5-10.1) mg/dL Troponin I < 0.050 < 0.050 (0.000-0.056) ng/mL 01/09/19 Range/Units 06:28 WBC (4.0-11.0) K/uL RBC (4.50-5.90) M/uL Hgb (13.0-17.0) g/dL Hct (38.0-50.0) % MCV (80.0-98.0) fL MCH (27.0-32.0) pg MCHC (31.0-37.0) g/dL RDW Std Deviation (28.0-62.0) fl RDW Coeff of Dwain (11.0-15.0) % Plt Count (150-400) K/uL MPV (7.40-12.00) fL Neut % (Auto) (48.0-80.0) % Lymph % (Auto) (16.0-40.0) % [place] % (Auto) (0.0-15.0) % Eos % (Auto) (0.0-7.0) % Baso % (Auto) (0.0-1.5) % Neut # (Auto) (1.4-5.7) K/uL Lymph # (Auto) (0.6-2.4) K/uL [place] # (Auto) (0.0-0.8) K/uL Eos # (Auto) (0.0-0.7) K/uL Baso # (Auto) (0.0-0.1) K/uL Nucleated RBC % /100WBC Nucleated RBCs # K/uL Sodium 141 (136-148) mmol/L Potassium 3.7 (3.5-5.1) mmol/L Chloride 107 (98-107) mmol/L Carbon Dioxide 23.7 (21.0-32.0) mmol/L BUN 16 (7.0-18.0) mg/dL Creatinine 1.0 (0.8-1.3) mg/dL Est Cr Clr Drug Dosing 98.86 mL/min Estimated GFR (MDRD) > 60.0 ml/min Glucose 95 (74-106) mg/dL Calcium 9.1 (8.5-10.1) mg/dL Troponin I (0.000-0.056) ng/mL Med Orders - Current: Current Medications Acetaminophen (Tylenol) 650 mg PO Q4H PRN PRN Reason: Pain (mild 1-3) Albuterol (Proventil Neb Soln) 2.5 mg NEB Q2H PRN PRN Reason: Shortness Of Breath/wheezing Aspirin (Aspirin) 81 mg PO DAILY [facility] Last Admin: 01/09/19 09:45 Dose: 81 mg Atorvastatin Calcium (Lipitor) 10 mg PO DAILY [facility] Last Admin: 01/09/19 09:44 Dose: 10 mg Enoxaparin Sodium (Lovenox) 90 mg SUBCUT Q12HR [facility] Last Admin: 01/09/19 09:46 Dose: 90 mg Gabapentin (Neurontin) 300 mg PO BID [facility] Last Admin: 01/09/19 09:44 Dose: 300 mg Hydromorphone HCl (Dilaudid) 1 mg IVPUSH Q3H PRN PRN Reason: Pain (severe 7-10) Last Admin: 01/09/19 06:20 Dose: 1 mg Morphine Sulfate (Ms Contin) 30 mg PO BID [facility] Last Admin: 01/09/19 09:45 Dose: 30 mg Ondansetron HCl (Zofran) 4 mg IVPUSH Q4H PRN PRN Reason: Nausea Oxycodone/Acetaminophen (Percocet 325-10 Mg) 1 tab PO QID [facility] Last Admin: 01/09/19 12:04 Dose: 1 tab Prednisone (Prednisone) 5 mg PO DAILY [facility] Last Admin: 01/09/19 09:45 Dose: 5 mg Ranitidine HCl (Zantac) 300 mg PO BID [facility] Last Admin: 01/09/19 09:44 Dose: 300 mg Sodium Chloride (Saline Flush) 10 ml FLUSH ASDIRECTED PRN PRN Reason: Keep Vein Open Sodium Chloride (Saline Flush) 2.5 ml FLUSH ASDIRECTED PRN PRN Reason: Keep Vein Open Discontinued Medications Enoxaparin Sodium (Lovenox) 91 mg SUBCUT ONETIME ONE Stop: 01/08/19 14:56 Last Admin: 01/08/19 15:37 Dose: 91 mg Iopamidol (Isovue Multipack-370 (76%)) 50 ml IVPUSH ONETIME STA Stop: 01/08/19 16:06 Last Admin: 01/08/19 16:05 Dose: 50 ml Ketorolac Tromethamine (Toradol) 30 mg IVPUSH ONETIME ONE Stop: 01/08/19 09:30 Last Admin: 01/08/19 09:42 Dose: 30 mg - Exam Quality Assessment: Denies: Supplemental Oxygen General: Reports: Alert, Oriented, Cooperative, No Acute Distress HEENT: Reports: Pupils Equal, Pupils Reactive Neck: Reports: Supple, Trachea Midline Lungs: Reports: Clear to Auscultation, Normal Respiratory Effort Cardiovascular: Reports: Regular Rate, Regular Rhythm GI/Abdominal Exam: Normal Bowel Sounds, Soft, Non-Tender, No Distention (Male) Exam: Deferred Rectal (Males) Exam: Deferred Back Exam: Reports: Normal Inspection, Full Range of Motion Extremities: Normal Inspection, Normal Range of Motion, No Pedal Edema Skin: Reports: Warm, Dry, Intact Neurological: Reports: No New Focal Deficit Psy/Mental Status: Reports: Alert, Normal Affect, Normal Mood
[2019-01-09 13:36] VITALS: BP 127/94
== END 2019-01-09 14:50 | disposition home or self-care (01) ==
LOC: MW.ED 09:06 → MW.MS 16:26
PROVIDERS: ADMIT Internal Medicine; ATTEND Internal Medicine
DX: I26.99 Other pulmonary embolism without acute cor pulmonale (principal); M19.90 Unspecified osteoarthritis, unspecified site; M06.9 Rheumatoid arthritis, unspecified; F11.90 Opioid use, unspecified, uncomplicated; I25.10 Atherosclerotic heart disease of native coronary artery without angina pectoris; R07.9 Chest pain, unspecified; G89.29 Other chronic pain; E78.00 Pure hypercholesterolemia, unspecified; Z79.82 Long term (current) use of aspirin; Z79.01 Long term (current) use of anticoagulants; Z79.899 Other long term (current) drug therapy; Z87.891 Personal history of nicotine dependence
CPT/HCPCS: 36415; 71045; 71275; 80048; 80053; 84484; 85025; 85379; 93005; 93970; 96372; 96374; 99285; A9270; J1170; J1650; J1885; J7512; Q9967; 96375; 96376; G0378

== ENCOUNTER 2019-06-14 08:54 | Inpatient (IN) | payer MEDICAID ==
[~2019-06-14 08:54] MED LIST: Acetaminophen 1,000 MG in Premix Bag 1 BAG IV SCH; Famotidine 20 MG/2 ML SDV IVPUSH SCH; Ropivacaine 49.25 ML, Ketorolac 30 MG, EPINEPHrine 0.5 MG, cloNIDine 80 MCG in Sodium C... INJECT SCH; Scopolamine 1.5 MG Transdermal Patch TRDERM SCH; Tranexamic Acid 2,000 MG in Sodium Chloride 0.9% 100 ML IV ONE; ceFAZolin 2 GM in Premix Bag 1 BAG IV SCH; oxyCODONE 5 MG Tab PO PRN
[2019-06-14] MEDS ORDERED: ceFAZolin 1 GM Vial ONE (09:17)
[2019-06-14] MEDS ORDERED: Ondansetron 4 MG/2 ML SDV ONE (09:17)
[2019-06-14] MEDS ORDERED: Sodium Chloride 0.9% 40 ML ONE (09:17)
[2019-06-14] MEDS ORDERED: ePHEDrine 50 MG/ML SDV ONE (09:17)
[2019-06-14] MEDS ORDERED: Propofol 200 MG/20 ML SDV ONE ×3 (09:18→14:26)
[2019-06-14] MEDS: Lactated Ringers 1,000 ML IV SCH (09:33)
[2019-06-14] MEDS ORDERED: Midazolam 1 MG/ML 2 ML SDV ONE (09:37)
--- NOTE | 2019-06-14 12:11 | PCM.PREANE ---
Preanesthetic Assessment - Anesthesia/Transfusion/Family Hx Anesthesia History: Prior Anesthesia Without Reaction Family History of Anesthesia Reaction: No Transfusion History: No Prior Transfusion(s) Intubation History: Unknown - Review of Systems General: No Symptoms Pulmonary: No Symptoms Cardiovascular: No Symptoms Gastrointestinal: No Symptoms, Nausea Neurological: No Symptoms Other: Reports: None - Physical Assessment O2 Sat by Pulse Oximetry: 96 Respiratory Rate: 16 Vital Signs: Last Vital Signs Temp 36.2 C 06/14/19 09:23 Pulse 71 06/14/19 09:23 Resp 16 06/14/19 09:23 BP 156/69 H 06/14/19 09:23 Pulse Ox 96 06/14/19 09:23 Height: 6 ft 4 in Weight: 93.44 kg ASA Class: 2 Mental Status: Alert & Oriented x3 Airway Class: Mallampati = 2 Dentition: Reports: Dentures (upper and lower), Missing Tooth/Teeth (only 4 teeth left) Thyro-Mental Finger Breadths: 2 Mouth Opening Finger Breadths: 2 ROM/Head Extension: Limited/Partial Lungs: Clear to Auscultation, Normal Respiratory Effort Cardiovascular: Regular Rate, Regular Rhythm - Lab Values: Laboratory Last Values Blood Type O POSITIVE 06/14/19 09:34 Antibody Screen NEGATIVE 06/14/19 09:34 - Allergies Allergies/Adverse Reactions: Allergies Allergy/AdvReac Type Severity Reaction Status Date / Time No Known Allergies Allergy Verified 06/14/19 09:54 - Blood Blood Available: No - Anesthesia Plan Pre-Op Medication Ordered: None - Acknowledgements Anesthesia Type Planned: Spinal (general anesthesia back up plan) Pt an Appropriate Candidate for the Planned Anesthesia: Yes Alternatives and Risks of Anesthesia Discussed w Pt/Guardian: Yes Pt/Guardian Understands and Agrees with Anesthesia Plan: Yes PreAnesthesia Questionnaire HEENT History: Reports: Other (See Below) Other HEENT History: ear infection "couple of months ago" Cardiovascular History: Reports: Blood Clots/VTE/DVT, High Cholesterol, GA, Stents Other Cardiovascular History: with 1 stent, blood clot right leg Respiratory History: Reports: None Other Respiratory History: PE in Jan from rt. leg DVT, took eloquis until 5 days ago Gastrointestinal History: Reports: None Other Gastrointestinal History: occasional heartburn Genitourinary History: Reports: Renal Calculus, Other (See Below) Other Genitourinary History: Bladder tumor Musculoskeletal History: Reports: Arthritis, Osteoporosis, RA Other Musculoskeletal History: chronic pain Neurological History: Reports: None Psychiatric History: Reports: None Endocrine/Metabolic History: Reports: None Hematologic History: Reports: Anticoagulation Therapy Immunologic History: Reports: None Oncologic (Cancer) History: Reports: None Dermatologic History: Reports: None - Infectious Disease History Infectious Disease History: Reports: Chicken Pox, Measles, Mumps, Scarlet Fever - Past Surgical History Head Surgeries/Procedures: Reports: None HEENT Surgical History: Reports: Adenoidectomy, Tonsillectomy Cardiovascular Surgical History: Reports: Coronary Artery Stent (3 years ago, ok since) Respiratory Surgical History: Reports: None GI Surgical History: Reports: None Male Surgical History: Reports: Renal Calculus, TURBT-Transurethral Resection of Bladder Tumor Endocrine Surgical History: Reports: None Neurological Surgical History: Reports: None Musculoskeletal Surgical History: Reports: None Oncologic Surgical History: Reports: None Dermatological Surgical History: Reports: Other (See Below) - SUBSTANCE USE Smoking Status *Q: Former Smoker Tobacco Use Within Last Twelve Months: No Recreational Drug Use History: No - HOME MEDS Home Medications: Home Meds Aspirin 81 mg PO DAILY 04/20/17 [History] Gabapentin [Neurontin] 300 mg PO BID PRN 04/20/17 [History] Morphine [MS Contin] 30 mg PO BID 04/20/17 [History] Prednisone [IJD: Prednisone] 5 mg PO DAILY 04/20/17 [History] oxyCODONE HCl/Acetaminophen [Percocet 10-325 mg Tablet] 1 tab PO ASDIRECTED [History] Ranitidine HCl [Ranitidine] 300 mg PO BID 01/08/19 [History] atorvaSTATin [Lipitor] 10 mg PO DAILY 01/08/19 [History] Apixaban [Eliquis] 5 mg PO BID #60 tablet 01/09/19 [Rx] Cholecalciferol (Vitamin D3) [Vitamin D3] 500 units PO DAILY 06/08/19 [History] InFLIXimab [Remicade] 1 injection IM ASDIRECTED 06/08/19 [History] Methotrexate Sodium [Methotrexate] 6 tab PO WEEKLY 06/08/19 [History] - CURRENT (IN HOUSE) MEDS Current Meds: Current Medications Famotidine (Pepcid) 40 mg IVPUSH ONARRIVE SYLW[facility] Last Admin: 06/14/19 09:34 Dose: 40 mg Acetaminophen 1,000 mg/ Premix 100 mls @ 400 mls/hr IV [facility] Last Admin: 06/14/19 09:38 Dose: 400 mls/hr Cefazolin Sodium/Dextrose 2 gm (/ Premix) 50 mls @ 100 mls/hr IV ONCALL SYLW[facility] Ropivacaine 49.25 ml/Ketorolac Tromethamine 30 mg/Epinephrine HCl 0.5 mg/ Clonidine HCl 80 mcg/ Sodium Chloride 75 mls @ 50 mls/sec INJECT ASDIRECTED SYLWIA Lactated Ringer's (Ringers, Lactated) 1,000 mls @ 100 mls/hr IV ASDIRECTED [facility] Last Admin: 06/14/19 09:33 Dose: 100 mls/hr Scopolamine (Transderm-Scop) 1.5 mg TRDERM ONARRIVE SYLW[facility] Last Admin: 06/14/19 09:34 Dose: 1.5 mg Discontinued Medications Cefazolin Sodium (Ancef) Confirm Administered Dose 2 gm .ROUTE .STK-MED ONE Stop: 06/14/19 09:18 Ephedrine Sulfate (Ephedrine Sulfate) Confirm Administered Dose 50 mg .ROUTE .STK-MED ONE Stop: 06/14/19 09:18 Tranexamic Acid 2,000 mg/ (Sodium Chloride) 120 mls @ 600 mls/hr IV ASDIRECTED ONE Stop: 06/14/19 08:11 Sodium Chloride (Normal Saline) Confirm Administered Dose 40 mls @ as directed .ROUTE .STK-MED ONE Stop: 06/14/19 09:18 Midazolam HCl (Versed 1 Mg/Ml) Confirm Administered Dose 2 mg .ROUTE .STK-MED ONE Stop: 06/14/19 09:38 Ondansetron HCl (Zofran) Confirm Administered Dose 4 mg .ROUTE .STK-MED ONE Stop: 06/14/19 09:18 Propofol (Diprivan 20 Ml) Confirm Administered Dose 400 mg .ROUTE .STK-MED ONE Stop: 06/14/19 09:19
[2019-06-14] MEDS ORDERED: fentaNYL 100 MCG/2 ML SDV ONE ×2 (13:19→13:42)
[2019-06-14] MEDS ORDERED: Lidocaine 2% 5 ML SDV ONE (13:22)
[2019-06-14] MEDS ORDERED: Glycopyrrolate 0.2 MG/ML SDV ONE (13:29)
[2019-06-14] MEDS ORDERED: Morphine PF 30 MG/30 ML PCA Vial IV PRN (14:41)
[2019-06-14] MEDS ORDERED: Aluminum Hydroxide/Magnesium Hydroxide/Simethicone Susp 30 ML Cup PO PRN (14:41)
[2019-06-14] MEDS ORDERED: Docusate Sodium 100 MG Cap PO PRN (14:41)
[2019-06-14] MEDS ORDERED: Ondansetron 4 MG/2 ML SDV IVPUSH PRN (14:41)
[2019-06-14] MEDS ORDERED: diphenhydrAMINE 25 MG Cap PO PRN (14:41)
[2019-06-14] MEDS ORDERED: Bisacodyl 10 MG Supp RECTAL PRN (14:41)
[2019-06-14] MEDS ORDERED: Sodium Chloride 0.9% 10 ML Syringe FLUSH PRN (14:45)
[2019-06-14] MEDS ORDERED: Sodium Chloride 0.9% 2.5 ML Syringe FLUSH PRN (14:45)
[2019-06-14] MEDS ORDERED: Gabapentin 300 MG Cap PO PRN (14:45)
--- NOTE | 2019-06-14 15:00 | PCM.OPNOTE ---
- General Post-Op/Procedure Note Date of Surgery/Procedure: 06/14/19 Operative Procedure(s): L TKA Post-Op Diagnosis: Left total knee arthroplasty Anesthesia Technique: Moderate Sedation, Spinal Primary Surgeon: Nicole Patten Executive Coordinator: Brittny Hercules Executive Coordinator: Beatris Garcia EBL in mLs: 50 Condition: Good Free Text/Narrative:: tt=49 min #[id number]
[2019-06-14] MEDS: Ketorolac 15 MG/ML SDV IVPUSH SCH ×2 (15:26→20:52)
--- NOTE | 2019-06-14 15:40 | PCM.POSTAN ---
POST ANESTHESIA ASSESSMENT - MENTAL STATUS Mental Status: Alert, Oriented - VITAL SIGNS Pulse Rate: 60 SaO2: 98 Resp Rate: 12 Blood Pressure: 115/63 - RESPIRATORY Respiratory Status: Respiratory Rate WNL, Airway Patent, O2 Saturation Stable - CARDIOVASCULAR CV Status: Pulse Rate WNL, Blood Pressure Stable - GASTROINTESTINAL GI Status: No Symptoms - PAIN Pain Score: 0 - POST OP HYDRATION Hydration Status: Adequate & Stable
--- NOTE | 2019-06-14 16:07 | CR ---
EXAMINATION: Left knee HISTORY: Arthroplasty COMPARISON: 11/03/2018 TECHNIQUE: 2 views FINDINGS/IMPRESSION: Left total knee hardware is demonstrated in good position and alignment. Postoperative soft tissue changes are noted.
--- NOTE | 2019-06-14 16:49 | PCM.CONS ---
H&P History of Present Illness - General Date of Service: 06/14/19 Admit Problem/Dx: Admission Diagnosis/Problem Admission Diagnosis/Problem Left knee pain Source of Information: Patient, Old Records History Limitations: Reports: No Limitations - History of Present Illness Initial Comments - Free Text/Narative: THis 58 year old male with pmh of CAD with PCI 3 years ago, RA on chronic pain medication, and hx of PE and DVTs, most recent January was admitted with L TKA with Dr Patten. Hospitalist service consulted for medical management due to medical comorbidities. Massimo is alert and oriented, arrived to the Med/Surg unit from PACU. He reports he feels cold otherwise is doing well. No chest pain or SOB. No palpitations. He reports he is starting to get feeling back in his legs. No knee pain. He reports he was evaluated for chest pain 3 years ago and noted to have significant CAD requiring stenting. He reports he has felt great since then. He takes Prednisone, Morphine and Percocet for chronic pain related to RA. He is also on Methotrexate and Remicade infusions. 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 PCP, Dr Dhaliwal Right Knee Pain Score (Numeric/FACES): 0 - Related Data Allergies/Adverse Reactions: Allergies Allergy/AdvReac Type Severity Reaction Status Date / Time No Known Allergies Allergy Verified 06/14/19 16:10 Home Medications: Home Meds Aspirin 81 mg PO DAILY 04/20/17 [History] Gabapentin [Neurontin] 300 mg PO BID PRN 04/20/17 [History] Morphine [MS Contin] 30 mg PO BID 04/20/17 [History] Prednisone [IJD: Prednisone] 5 mg PO DAILY 04/20/17 [History] oxyCODONE HCl/Acetaminophen [Percocet 10-325 mg Tablet] 1 tab PO ASDIRECTED [History] Ranitidine HCl [Ranitidine] 300 mg PO BID 01/08/19 [History] atorvaSTATin [Lipitor] 10 mg PO DAILY 01/08/19 [History] Apixaban [Eliquis] 5 mg PO BID #60 tablet 01/09/19 [Rx] Cholecalciferol (Vitamin D3) [Vitamin D3] 500 units PO DAILY 06/08/19 [History] InFLIXimab [Remicade] 1 injection IM ASDIRECTED 06/08/19 [History] Methotrexate Sodium [Methotrexate] 6 tab PO WEEKLY 06/08/19 [History] Past Medical History HEENT History: Reports: Other (See Below) Other HEENT History: ear infection "couple of months ago" Cardiovascular History: Reports: Blood Clots/VTE/DVT, CAD, High Cholesterol, Stents Other Cardiovascular History: with 1 stent, blood clot right leg Respiratory History: Reports: None Other Respiratory History: PE in Jan from rt. leg DVT, took eloquis until 5 days ago Gastrointestinal History: Reports: None Other Gastrointestinal History: occasional heartburn Genitourinary History: Reports: Renal Calculus, Other (See Below) Other Genitourinary History: Bladder tumor Musculoskeletal History: Reports: Arthritis, Osteoporosis, RA Other Musculoskeletal History: chronic pain Neurological History: Reports: None Psychiatric History: Reports: None Endocrine/Metabolic History: Reports: None Hematologic History: Reports: Anticoagulation Therapy Immunologic History: Reports: None Oncologic (Cancer) History: Reports: None Dermatologic History: Reports: None - Infectious Disease History Infectious Disease History: Reports: Chicken Pox, Measles, Mumps, Scarlet Fever - Past Surgical History Head Surgeries/Procedures: Reports: None HEENT Surgical History: Reports: Adenoidectomy, Tonsillectomy Cardiovascular Surgical History: Reports: Coronary Artery Stent (3 years ago, ok since) Respiratory Surgical History: Reports: None GI Surgical History: Reports: None Male Surgical History: Reports: Renal Calculus, TURBT-Transurethral Resection of Bladder Tumor Endocrine Surgical History: Reports: None Neurological Surgical History: Reports: None Musculoskeletal Surgical History: Reports: None Oncologic Surgical History: Reports: None Dermatological Surgical History: Reports: Other (See Below) Social & Family History - Family History Family Medical History: Noncontributory - Tobacco Use Smoking Status *Q: Former Smoker Years of Tobacco use: 40 Used Tobacco, but Quit: Yes Month/Year Tobacco Last Used: quit smoking in 2016 - Caffeine Use Caffeine Use: Reports: Coffee Caffeine Use Comment: 2cups/week - Recreational Drug Use Recreational Drug Use: No - Living Situation & Occupation Living situation: Reports: Alone Occupation: Disabled H&P Review of Systems - Review of Systems: Review Of Systems: See Below General: Reports: No Symptoms. Denies: Fever, Chills, Malaise, Weakness Pulmonary: Reports: No Symptoms. Denies: Shortness of Breath Cardiovascular: Reports: No Symptoms. Denies: Chest Pain, Palpitations, Edema Gastrointestinal: Reports: No Symptoms. Denies: Abdominal Pain, Flatus, Nausea Genitourinary: Reports: No Symptoms. Denies: Dysuria, Frequency Musculoskeletal: Reports: No Symptoms Psychiatric: Reports: No Symptoms Neurological: Reports: No Symptoms Hematologic/Lymphatic: Reports: No Symptoms Immunologic: Reports: No Symptoms Exam - Exam Exam: See Below - Vital Signs Vital Signs: Last Vital Signs Temp 96.3 F 06/14/19 16:28 Pulse 51 L 06/14/19 16:28 Resp 12 06/14/19 15:45 BP 139/65 06/14/19 16:28 Pulse Ox 99 06/14/19 16:28 Weight: 93.44 kg - Exam Quality Assessment: Supplemental Oxygen, Urinary Catheter, DVT Prophylaxis General: Alert, Oriented HEENT: Conjunctiva Clear, Mucosa Moist & [place], Posterior Pharynx Clear Lungs: Clear to Auscultation, Normal Respiratory Effort Cardiovascular: Regular Rate, Regular Rhythm GI/Abdominal Exam: Normal Bowel Sounds, Soft, Non-Tender Extremities: Normal Inspection, Normal Range of Motion, Non-Tender, No Pedal Edema Neurological: Cranial Nerves Intact Neuro Extensive - Mental Status: Alert, Oriented x3 Neuro Extensive - Motor, Sensory, Reflexes: CN II-XII Intact Psychiatric: Alert, Normal Affect, Normal Mood - Patient Data Lab Results Last 24 hrs: Laboratory Results - last 24 hr 06/14/19 Range/Units 09:34 Blood Type O POSITIVE Antibody Screen NEGATIVE Consult PN Assessment/Plan Procedures: Procedures ASSAY OF LACTIC ACID (04/20/17) ASSAY OF TROPONIN QUANT (01/08/19) BLOOD CULTURE FOR BACTERIA (04/20/17) CHEMO IV INFUSION 1 HR (05/20/19) CHEMO IV INFUSION ADDL HR (05/20/19) COMPLETE CBC W/AUTO DIFF WBC (01/08/19) COMPREHEN METABOLIC PANEL (01/08/19) CT ANGIOGRAPHY CHEST (01/08/19) CT SOFT TISSUE NECK W/DYE (04/20/17) ELECTROCARDIOGRAM TRACING (01/08/19) EMERGENCY DEPT VISIT (01/08/19) EXTREMITY STUDY (01/08/19) FIBRIN DEGRADATION QUANT (01/08/19) METABOLIC PANEL TOTAL CA (01/08/19) ROUTINE VENIPUNCTURE (01/08/19) THER/PROPH/DIAG INJ IV PUSH (01/08/19) THER/PROPH/DIAG INJ SC/IM (01/08/19) THER/PROPH/DIAG IV INF INIT (04/20/17) TX/PRO/DX INJ NEW DRUG ADDON (04/20/17) TX/PROPH/DG ADDL SEQ IV INF (04/20/17) X-RAY EXAM CHEST 1 VIEW (01/08/19) X-RAY EXAM KNEE 4 OR MORE (08/13/17) X-RAY EXAM OF JAW 4/> VIEWS (04/20/17) X-RAY EXAM OF KNEE 1 OR 2 (11/03/18) X-RAY EXAM OF SHOULDER (02/18/19) (1) S/P total knee arthroplasty SNOMED Code(s): 9809353294271, 953183279, 4661016213321 Code(s): Z96.659 - PRESENCE OF UNSPECIFIED ARTIFICIAL KNEE JOINT Current Visit: Yes Qualifiers: Laterality: left Qualified Code(s): Z96.652 - Presence of left artificial knee joint (2) CAD (coronary artery disease) SNOMED Code(s): 55303075 Code(s): I25.10 - ATHSCL HEART DISEASE OF [place] CORONARY ARTERY W/O ANG PCTRS Current Visit: No (3) Chronic narcotic use SNOMED Code(s): 02357444 Code(s): F11.90 - OPIOID USE, UNSPECIFIED, UNCOMPLICATED Current Visit: No (4) Hx of deep venous thrombosis SNOMED Code(s): 456587859 Code(s): Z86.718 - PERSONAL HISTORY OF OTHER VENOUS THROMBOSIS AND EMBOLISM Current Visit: No (5) Rheumatoid arthritis SNOMED Code(s): 06090159 Code(s): M06.9 - RHEUMATOID ARTHRITIS, UNSPECIFIED Current Visit: No Qualifiers: Rheumatoid factor presence: unspecified presence Laterality: bilateral Problem List Initiated/Reviewed/Updated: Yes My Orders Last 24 Hours: My Active Orders 06/14/19 14:54 BASIC METABOLIC PANEL,BMP [CHEM] Routine CBC WITH AUTO DIFF [HEME] Routine MG [MAGNESIUM] [CHEM] Routine Plan: This 58 year old male admitted with L TKA, hospitalist service consulted for medical management. 1. S/P L TKA: Orders per Dr Patten 2. CAD: Stable, no chest pain. Monitor BP and BMP. 3. Hx DVT/PE: Monitor closely. Recommended continuing anticoagulation with Eliquis as soon as possible. Last dose 5 days ago. 4. RA: Continue prednisone and pain management. VTE prophylaxis: Eliquis
[2019-06-14] MEDS: Apixaban 5 MG Tab PO SCH (20:51)
[2019-06-14] MEDS: Famotidine 20 MG Tab PO SCH (20:51)
[2019-06-14] MEDS: ceFAZolin 2 GM in Premix Bag 1 BAG IV SCH (20:53)
[2019-06-14 21:06] LABS: CHLORIDE,CL 112 mmol/L (98-107); SODIUM,NA 143 mmol/L (136-148)
--- NOTE | 2019-06-15 00:08 | PCM48HPAN ---
Post Anesthesia Note - EVALUATION WITHIN 48HRS OF ANESTHETIC Vital Signs in Normal Range: Yes Patient Participated in Evaluation: Yes Respiratory Function Stable: Yes Airway Patent: Yes Cardiovascular Function Stable: Yes Hydration Status Stable: Yes Pain Control Satisfactory: Yes Nausea and Vomiting Control Satisfactory: Yes Mental Status Recovered: Yes Pulse Rate: 61 SaO2: 96 Resp Rate: 17 Temperature: 98.2 F Blood Pressure: 126/79
[2019-06-15] MEDS: Lactated Ringers 1,000 ML IV SCH (00:10)
[2019-06-15] MEDS: Ketorolac 15 MG/ML SDV IVPUSH SCH (02:39)
[2019-06-15] MEDS: ceFAZolin 2 GM in Premix Bag 1 BAG IV SCH (04:04)
[2019-06-15] MEDS: Acetaminophen/oxyCODONE 325-10 MG Tab PO PRN ×4 (06:34→21:08)
[2019-06-15] MEDS: Aspirin 81 MG Tab.Chew PO SCH (08:06)
[2019-06-15] MEDS: Famotidine 20 MG Tab PO SCH ×3 (08:06→21:10)
[2019-06-15] MEDS: Polyethylene Glycol 3350 Powder 17 GM Packet PO SCH (08:06)
[2019-06-15] MEDS: Apixaban 5 MG Tab PO SCH ×2 (08:07→21:10)
[2019-06-15] MEDS: atorvaSTATin 10 MG Tab PO SCH (08:07)
[2019-06-15] MEDS: predniSONE 10 MG Tab PO SCH (08:07)
[2019-06-15] MEDS ORDERED: Celecoxib 100 MG Cap PO SCH (09:00)
[2019-06-15] MEDS ORDERED: CHOLECALCIFEROL 500 UNIT PO SCH (09:00)
--- NOTE | 2019-06-15 09:55 | PCM.CONSN ---
- General Info Date of Service: 06/15/19 Admission Dx/Problem (Free Text): Admission Diagnosis/Problem Admission Diagnosis/Problem Left knee pain Subjective Update: Complaining of continued pain in jasvir of receiving pain meds this morning. Feels pain isn't controlled. No chest pain or SOB. Functional Status: Reports: Pain Controlled, Tolerating Diet, Ambulating - Review of Systems General: Reports: No Symptoms. Denies: Fever, Weakness, Fatigue HEENT: Reports: No Symptoms. Denies: Sore Throat, Visual Changes Pulmonary: Reports: No Symptoms. Denies: Shortness of Breath Cardiovascular: Reports: No Symptoms. Denies: Chest Pain Gastrointestinal: Reports: No Symptoms. Denies: Abdominal Pain, Nausea, Vomiting Musculoskeletal: Reports: Joint Pain (L knee pain as well as chronic shoulder pain.) Skin: Reports: No Symptoms Neurological: Reports: No Symptoms Psychiatric: Reports: No Symptoms - Patient Data Vitals - Most Recent: Last Vital Signs Temp 98.4 F 06/15/19 07:33 Pulse 80 06/15/19 07:33 Resp 15 06/15/19 07:33 BP 102/68 06/15/19 07:33 Pulse Ox 91 L 06/15/19 07:33 Weight - Most Recent: 93.44 kg I&O - Last 24 Hours: Intake & Output 06/14/19 06/15/19 06/15/19 22:59 06:59 14:59 Intake Total 1999 2064 Output Total 125 950 Balance 1875 1115 Lab Results Last 24 Hours: Laboratory Results - last 24 hr 06/14/19 06/14/19 06/14/19 Range/Units 09:34 20:38 20:38 WBC 9.74 (4.0-11.0) K/uL RBC 4.14 L (4.50-5.90) M/uL Hgb 12.2 L (13.0-17.0) g/dL Hct 37.9 L (38.0-50.0) % MCV 91.5 (80.0-98.0) fL MCH 29.5 (27.0-32.0) pg MCHC 32.2 (31.0-37.0) g/dL RDW Std Deviation 52.6 (28.0-62.0) fl RDW Coeff of Dwain 16 H (11.0-15.0) % Plt Count 105 L (150-400) K/uL MPV 11.30 (7.40-12.00) fL Neut % (Auto) (48.0-80.0) % Lymph % (Auto) (16.0-40.0) % [place] % (Auto) (0.0-15.0) % Eos % (Auto) (0.0-7.0) % Baso % (Auto) (0.0-1.5) % Neut # (Auto) (1.4-5.7) K/uL Lymph # (Auto) (0.6-2.4) K/uL [place] # (Auto) (0.0-0.8) K/uL Eos # (Auto) (0.0-0.7) K/uL Baso # (Auto) (0.0-0.1) K/uL Add Manual Diff YES Neutrophils % (Manual) 56 (48.0-80.0) % Band Neutrophils % 3 % Lymphocytes % (Manual) 37 (16.0-40.0) % Monocytes % (Manual) 4 (0.0-15.0) % Nucleated RBC % 0.0 /100WBC Absolute Seg Neuts 5.5 (1.4-5.7) Band Neutrophils # 0.3 Lymphocytes # (Manual) 3.6 H (0.6-2.4) Monocytes # (Manual) 0.4 (0.0-0.8) Nucleated RBCs # 0 K/uL Sodium 143 (136-148) mmol/L Potassium 3.5 (3.5-5.1) mmol/L Chloride 112 H (98-107) mmol/L Carbon Dioxide 25.2 (21.0-32.0) mmol/L BUN 15 (7.0-18.0) mg/dL Creatinine 0.9 (0.8-1.3) mg/dL Est Cr Clr Drug Dosing 109.84 mL/min Estimated GFR (MDRD) > 60.0 ml/min Glucose 138 H (74-106) mg/dL Calcium 8.4 L (8.5-10.1) mg/dL Magnesium 2.0 (1.8-2.4) mg/dL Blood Type O POSITIVE Antibody Screen NEGATIVE 06/15/19 Range/Units 06:15 WBC 9.67 (4.0-11.0) K/uL RBC 4.19 L (4.50-5.90) M/uL Hgb 12.2 L (13.0-17.0) g/dL Hct 38.5 (38.0-50.0) % MCV 91.9 (80.0-98.0) fL MCH 29.1 (27.0-32.0) pg MCHC 31.7 (31.0-37.0) g/dL RDW Std Deviation 54.0 (28.0-62.0) fl RDW Coeff of Dwain 16 H (11.0-15.0) % Plt Count 148 L (150-400) K/uL MPV 11.10 (7.40-12.00) fL Neut % (Auto) 56.8 (48.0-80.0) % Lymph % (Auto) 29.5 (16.0-40.0) % [place] % (Auto) 8.9 (0.0-15.0) % Eos % (Auto) 4.3 (0.0-7.0) % Baso % (Auto) 0.5 (0.0-1.5) % Neut # (Auto) 5.5 (1.4-5.7) K/uL Lymph # (Auto) 2.9 H (0.6-2.4) K/uL [place] # (Auto) 0.9 H (0.0-0.8) K/uL Eos # (Auto) 0.4 (0.0-0.7) K/uL Baso # (Auto) 0.1 (0.0-0.1) K/uL Add Manual Diff Neutrophils % (Manual) (48.0-80.0) % Band Neutrophils % % Lymphocytes % (Manual) (16.0-40.0) % Monocytes % (Manual) (0.0-15.0) % Nucleated RBC % 0.0 /100WBC Absolute Seg Neuts (1.4-5.7) Band Neutrophils # Lymphocytes # (Manual) (0.6-2.4) Monocytes # (Manual) (0.0-0.8) Nucleated RBCs # 0 K/uL Sodium (136-148) mmol/L Potassium (3.5-5.1) mmol/L Chloride (98-107) mmol/L Carbon Dioxide (21.0-32.0) mmol/L BUN (7.0-18.0) mg/dL Creatinine (0.8-1.3) mg/dL Est Cr Clr Drug Dosing mL/min Estimated GFR (MDRD) ml/min Glucose (74-106) mg/dL Calcium (8.5-10.1) mg/dL Magnesium (1.8-2.4) mg/dL Blood Type Antibody Screen Med Orders - Current: Current Medications Al Hydroxide/Mg Hydroxide (Mag-Al Plus) 30 ml PO Q4H PRN PRN Reason: Indigestion Apixaban (Eliquis) 5 mg PO BID [facility] Last Admin: 06/15/19 08:07 Dose: 5 mg Aspirin (Aspirin) 81 mg PO DAILY [facility] Last Admin: 06/15/19 08:06 Dose: 81 mg Atorvastatin Calcium (Lipitor) 10 mg PO DAILY [facility] Last Admin: 06/15/19 08:07 Dose: 10 mg Bisacodyl (Dulcolax) 10 mg RECTAL DAILY PRN PRN Reason: Constipation Diphenhydramine HCl (Benadryl) 25 - 50 mg PO Q6H PRN PRN Reason: Itching Docusate Sodium (Colace) 100 mg PO BID PRN PRN Reason: Constipation Famotidine (Pepcid) 40 mg IVPUSH ONARRIVE [facility] Last Admin: 06/14/19 09:34 Dose: 40 mg Famotidine (Pepcid) 40 mg PO BID [facility] Last Admin: 06/15/19 08:07 Dose: Not Given Famotidine (Pepcid) 40 mg PO DAILY [facility] Last Admin: 06/15/19 08:06 Dose: 40 mg Gabapentin (Neurontin) 300 mg PO BID PRN PRN Reason: Pain Acetaminophen 1,000 mg/ Premix 100 mls @ 400 mls/hr IV ONARRIVE [facility] Last Admin: 06/14/19 09:38 Dose: 400 mls/hr Cefazolin Sodium/Dextrose 2 gm (/ Premix) 50 mls @ 100 mls/hr IV ONCALL [facility] Ropivacaine 49.25 ml/Ketorolac Tromethamine 30 mg/Epinephrine HCl 0.5 mg/ Clonidine HCl 80 mcg/ Sodium Chloride 75 mls @ 50 mls/sec INJECT ASDIRECTED [facility] Lactated Ringer's (Ringers, Lactated) 1,000 mls @ 100 mls/hr IV ASDIRECTED [facility] Last Admin: 06/15/19 00:10 Dose: 100 mls/hr Methotrexate (Methotrexate) 15 mg PO Sa@0900 [facility] Morphine Sulfate (Morphine) 1 - 3 mg IVPUSH Q3H PRN PRN Reason: Pain Ondansetron HCl (Zofran) 4 mg IVPUSH Q6H PRN PRN Reason: Nausea/Vomiting Oxycodone/Acetaminophen (Percocet 325-10 Mg) 1 - 2 tab PO Q4H PRN PRN Reason: Pain Last Admin: 06/15/19 06:34 Dose: 2 tab Polyethylene Glycol (Miralax) 17 gm PO DAILY [facility] Last Admin: 06/15/19 08:06 Dose: 17 gm Prednisone (Prednisone) 5 mg PO DAILY [facility] Last Admin: 06/15/19 08:07 Dose: 5 mg Scopolamine (Transderm-Scop) 1.5 mg TRDERM ONARRIVE [facility] Last Admin: 06/14/19 09:34 Dose: 1.5 mg Sodium Chloride (Saline Flush) 10 ml FLUSH ASDIRECTED PRN PRN Reason: Keep Vein Open Sodium Chloride (Saline Flush) 2.5 ml FLUSH ASDIRECTED PRN PRN Reason: Keep Vein Open Discontinued Medications Cefazolin Sodium (Ancef) Confirm Administered Dose 2 gm .ROUTE .STK-MED ONE Stop: 06/14/19 09:18 Ephedrine Sulfate (Ephedrine Sulfate) Confirm Administered Dose 50 mg .ROUTE .STK-MED ONE Stop: 06/14/19 09:18 Fentanyl (Sublimaze) Confirm Administered Dose 100 mcg .ROUTE .STK-MED ONE Stop: 06/14/19 13:20 Fentanyl (Sublimaze) Confirm Administered Dose 100 mcg .ROUTE .STK-MED ONE Stop: 06/14/19 13:43 Glycopyrrolate (Robinul) Confirm Administered Dose 0.2 mg .ROUTE .STK-MED ONE Stop: 06/14/19 13:30 Tranexamic Acid 2,000 mg/ (Sodium Chloride) 120 mls @ 600 mls/hr IV ASDIRECTED ONE Stop: 06/14/19 08:11 Last Admin: 06/14/19 16:39 Dose: Not Given Sodium Chloride (Normal Saline) Confirm Administered Dose 40 mls @ as directed .ROUTE .STK-MED ONE Stop: 06/14/19 09:18 Cefazolin Sodium/Dextrose 2 gm (/ Premix) 50 mls @ 100 mls/hr IV Q8H [facility] Stop: 06/15/19 05:29 Last Admin: 06/15/19 04:04 Dose: 100 mls/hr Ketorolac Tromethamine (Toradol) 15 mg IVPUSH Q6H [facility] Stop: 06/15/19 05:00 Last Admin: 06/15/19 02:39 Dose: 15 mg Lidocaine (Xylocaine-Mpf 2%) Confirm Administered Dose 5 ml .ROUTE .STK-MED ONE Stop: 06/14/19 13:23 Midazolam HCl (Versed 1 Mg/Ml) Confirm Administered Dose 2 mg .ROUTE .STK-MED ONE Stop: 06/14/19 09:38 Morphine Sulfate (Morphine [employer] 30 Mg In 30 Ml) 30 mg IV ASDIRECTED PRN; Protocol PRN Reason: Pain Stop: 06/15/19 06:00 Last Admin: 06/14/19 15:29 Dose: 30 mg Ondansetron HCl (Zofran) Confirm Administered Dose 4 mg .ROUTE .STK-MED ONE Stop: 06/14/19 09:18 Oxycodone HCl (Oxycodone) 5 - 10 mg PO Q4H PRN PRN Reason: Pain Stop: 06/15/19 06:00 Last Admin: 06/14/19 17:55 Dose: 10 mg Propofol (Diprivan 20 Ml) Confirm Administered Dose 400 mg .ROUTE .STK-MED ONE Stop: 06/14/19 09:19 Propofol (Diprivan 20 Ml) Confirm Administered Dose 400 mg .ROUTE .STK-MED ONE Stop: 06/14/19 13:35 Propofol (Diprivan 20 Ml) Confirm Administered Dose 200 mg .ROUTE .STK-MED ONE Stop: 06/14/19 14:27 Tranexamic Acid (Cyklokapron) Confirm Administered Dose 2,000 mg .ROUTE .STK- MED ONE Stop: 06/14/19 12:09 - Exam General: Alert, Oriented, Cooperative, No Acute Distress Lungs: Clear to Auscultation, Normal Respiratory Effort Cardiovascular: Regular Rate, Regular Rhythm GI/Abdominal Exam: Normal Bowel Sounds, Soft, Non-Tender Extremities: Normal Inspection, Normal Range of Motion, Non-Tender, Pedal Edema (scant) Wound/Incisions: Dressing Dry and Intact (ROSALINE wrap in place L knee) Neurological: No New Focal Deficit Psy/Mental Status: Alert, Normal Affect, Normal Mood Consult PN Assessment/Plan Procedures: Procedures ASSAY OF LACTIC ACID (04/20/17) ASSAY OF TROPONIN QUANT (01/08/19) BLOOD CULTURE FOR BACTERIA (04/20/17) CHEMO IV INFUSION 1 HR (05/20/19) CHEMO IV INFUSION ADDL HR (05/20/19) COMPLETE CBC W/AUTO DIFF WBC (01/08/19) COMPREHEN METABOLIC PANEL (01/08/19) CT ANGIOGRAPHY CHEST (01/08/19) CT SOFT TISSUE NECK W/DYE (04/20/17) ELECTROCARDIOGRAM TRACING (01/08/19) EMERGENCY DEPT VISIT (01/08/19) EXTREMITY STUDY (01/08/19) FIBRIN DEGRADATION QUANT (01/08/19) METABOLIC PANEL TOTAL CA (01/08/19) ROUTINE VENIPUNCTURE (01/08/19) THER/PROPH/DIAG INJ IV PUSH (01/08/19) THER/PROPH/DIAG INJ SC/IM (01/08/19) THER/PROPH/DIAG IV INF INIT (04/20/17) TX/PRO/DX INJ NEW DRUG ADDON (04/20/17) TX/PROPH/DG ADDL SEQ IV INF (04/20/17) X-RAY EXAM CHEST 1 VIEW (01/08/19) X-RAY EXAM KNEE 4 OR MORE (08/13/17) X-RAY EXAM OF JAW 4/> VIEWS (04/20/17) X-RAY EXAM OF KNEE 1 OR 2 (11/03/18) X-RAY EXAM OF SHOULDER (02/18/19) (1) S/P total knee arthroplasty SNOMED Code(s): 9987669549119, 847555621, 2338620359028 Code(s): Z96.659 - PRESENCE OF UNSPECIFIED ARTIFICIAL KNEE JOINT Current Visit: Yes Qualifiers: Laterality: left Qualified Code(s): Z96.652 - Presence of left artificial knee joint (2) CAD (coronary artery disease) SNOMED Code(s): 01861229 Code(s): I25.10 - ATHSCL HEART DISEASE OF [place] CORONARY ARTERY W/O ANG PCTRS Current Visit: No (3) Chronic narcotic use SNOMED Code(s): 69239749 Code(s): F11.90 - OPIOID USE, UNSPECIFIED, UNCOMPLICATED Current Visit: No (4) Hx of deep venous thrombosis SNOMED Code(s): 387673898 Code(s): Z86.718 - PERSONAL HISTORY OF OTHER VENOUS THROMBOSIS AND EMBOLISM Current Visit: No (5) Rheumatoid arthritis SNOMED Code(s): 08109783 Code(s): M06.9 - RHEUMATOID ARTHRITIS, UNSPECIFIED Current Visit: No Qualifiers: Rheumatoid factor presence: unspecified presence Laterality: bilateral Problem List Initiated/Reviewed/Updated: Yes My Orders Last 24 Hours: My Active Orders 06/15/19 06:15 BASIC METABOLIC PANEL,BMP [CHEM] AM MG [MAGNESIUM] [CHEM] AM Plan: This 58 year old male admitted with L TKA, hospitalist service consulted for medical management. 1. S/P L TKA: Orders per Dr Patten. Reports pain is not well controlled, will reach out to Orthopedics in case they want to change pain management. 2. CAD: Stable, no chest pain. Monitor BP and BMP. 3. Hx DVT/PE: Monitor closely. Recommended continuing anticoagulation with Eliquis as soon as possible. Last dose 5 days ago. 4. RA: Continue prednisone and pain management. VTE prophylaxis: Eliquis Dispo: [facility] for skill rehabilitation
--- NOTE | 2019-06-15 10:52 | OR ---
SURGEON: Nicole Patten MD DATE OF PROCEDURE: 06/14/2019 PREOPERATIVE DIAGNOSES: 1. Degenerative joint disease, left knee, tricompartmental. 2. Rheumatoid arthritis. POSTOPERATIVE DIAGNOSES: 1. Degenerative joint disease, left knee, tricompartmental. 2. Rheumatoid arthritis. PROCEDURE PERFORMED: Left total knee arthroplasty. PRIMARY SURGEON: Nicole Patten MD. CLINICAL APPEALS SPECIALIST: Brittny Hercules PA-C, and ADALI Lopez. ANESTHESIA: Spinal with sedation. ESTIMATED BLOOD LOSS: 50 mL. TOURNIQUET TIME: 49 minutes. COMPLICATIONS: None. DVT PROPHYLAXIS: PAS boot to the nonoperative leg. IMPLANTS USED: Carlin persona femoral component size 9 standard (LPS), tibial component size G, 11 mm all-polyethylene articular surface, and 38 mm all-polyethylene patella. FINDINGS: Showed severe tricompartmental degenerative changes with osteophyte formation. Loose bodies were also noted. There was complete filling of the notch by the osteophytes. Bone quality was quite soft. No significant synovitis was noted. BRIEF HISTORY: Massimo is a 58-year-old male who has had complaint of progressive lateral knee pain, left greater than right. He had failed conservative treatment. Due to his lack of response to conservative treatment, I did recommend surgical intervention. The risks and goals of procedure were discussed with the patient and were documented preoperatively. He agreed to proceed. The patient does have a history of previous DVT and pulmonary embolism. He is currently on Eliquis. This was held prior to the surgery. He also has a history of rheumatoid arthritis and is on an immunomodulator as well as methotrexate and prednisone. We have continued this preoperatively to avoid any flares of his arthritis. We did have a long discussion preoperatively regarding the increased risks with this procedure. Due to his continued pain and lack of response to conservative treatment, he elected to proceed. The risks and goals of procedure were discussed with the patient and were documented preoperatively. He agreed to proceed. DESCRIPTION OF PROCEDURE: The patient was properly identified and brought to the operating room. The patient was then transferred from the operating room cart and placed on the operating table in a supine position. Anesthesia was administered by the anesthesia staff. After adequate anesthesia was obtained, a well-padded tourniquet was applied to the surgical lower extremity. Cantor catheter was placed. The lower extremity was then prepped in standard fashion using ChloraPrep solution. It was then sterilely draped. A time-out was performed to ensure correct site and procedure. Preoperative antibiotics were given along with one gram tranexamic acid IV. The surgical site had been marked preoperatively. An Esmarch was used to exsanguinate the right lower extremity and the tourniquet was inflated. An incision was made over the anterior aspect of the knee. The subcutaneous tissues were dissected down to the level of the fascia. A medial parapatellar approach to the knee was made. A portion of the infrapatellar fat pad was then excised. The distal femur was then exposed. The step reamer was used to gain access to the intramedullary canal. This was placed in 6 degrees of valgus. Pins were placed. The distal femoral cutting block was placed and the distal femoral cut was made. Instrumentation was then removed. The femur was then sized. Both Whitesides' line and the epicondylar axis were then marked with electrocautery. The 4-in-1 cutting block was placed. This was placed in a slightly externally rotated position, which corresponded well with the previously drawn lines. The cutting guide was then pinned into position. An Marco wing guide was used to check the depth of resection of our anterior condylar cut and it was felt that no notching would occur. The anterior condylar cut was then made followed by the posterior condylar cut. Both the posterior chamfer and anterior chamfer cuts were then made. The cutting block was then removed along with the excess bony remnants. We then turned our attention to the tibia. The anterior cruciate ligament and posterior cruciate ligament were released and a posterior cruciate ligament retractor was placed to allow the tibia to be pulled anteriorly. The tibial extra-medullary guide was then positioned. We chose to take approximately 2 mm off the lowest side. The proximal tibia cutting guide was then placed and screwed into position. The proximal tibial resection was then made with care being taken to protect the patellar tendon. The bony resection was then removed. The remainder of the medial and lateral meniscus were then excised. Care was taken to protect the popliteus tendon. The tibia was then sized to the appropriate size. The distal femur was then elevated. The posterior capsule was stripped off the distal femur both medially and laterally. The posterior capsule along with the medial and lateral gutters were then injected with a standard mixture consisting of clonidine, epinephrine, Toradol, and opivacaine, unless any allergies were found preoperatively. The femoral component was then placed onto the distal femur in a slightly lateral position. This fit the femur well. A box cut was then made without difficulty. This was then removed. The tibial trial along with the polyethylene liner was then placed. The knee came easily into full extension and was stable to varus and valgus stressing both in full extension and flexion. Any additional releases were performed at this time. We then returned our attention to the patella. The patella was everted and towel clamps were used to hold the patella in position. It was resected to a 15 millimeter thickness. It was then sized to the appropriate size. It was prepared in the usual fashion after placing the predetermined size clamps. This was placed in a slightly superior and medial position. The clamp was then removed. The patellar trial button was placed. The knee was taken through a range of motion using the no-touch technique. The patella tracked centrally. A drop blake was then placed to check alignment. All instruments were then removed from the knee. The tibial sizer was then placed on the tibia. The tibia was prepared in the usual fashion using the reamer and broach. This was then removed. All bony surfaces were copiously irrigated with Pulsavac solution. They were then suctioned dry. Cement was prepared on the back table in the usual manner. Antibiotic impregnated cement was used if the patient was diabetic. Once it was prepared, the bone ends were again suctioned dry. The tibia was cemented into place first. This was malleted into position. Excess cement was then cleared. The femur was then placed in a similar manner. We placed the polyethylene trial into place and the knee was brought into full extension. An axial load was placed while keeping the knee in full extension. The patella button was also cemented into position and the clamp was used to hold this in place as the cement was allowed to cure. The wound was copiously irrigated with saline using a pulsavac power driven brush maker. Following this, 1 gram of tranexamic acid was applied topically to the wound during the curing process. After we had adequate curing of the cement, the knee was again taken through a range of motion. The size of the polyethylene was then determined. The polyethylene trial was then removed. The tibial tray was suctioned to make sure there was no remaining soft tissue or cement. Excess cement was cleared from around the edges of the prosthesis as well. The tourniquet was then deflated. We were able to observe for any excess bleeding and none was noted. Electrocautery was used to maintain hemostasis. An additional gram of tranexamic acid was given IV. The retractors were again placed and the predetermined polyethylene was then placed. This was locked into position without difficulty. The knee was again taken through a range of motion with no change from the prior exam. The fascial layer was closed with Number One Vicryl. The subcutaneous tissues were closed with 2-0 Vicryl. The skin was closed with shadia. Xeroform gauze was placed over the wound and a bulky dressing was applied. The patient was then awakened from anesthesia and transferred back to the operating room cart. They were brought to the recovery room in stable condition. All needle and sponge counts were correct. SALOMÓN / ANDRZEJ /[id number]
[2019-06-15] MEDS: Morphine 2 MG/ML Syringe IVPUSH PRN ×3 (11:16→17:32)
[2019-06-15 12:19] LABS: CHLORIDE,CL 111 mmol/L (98-107); SODIUM,NA 144 mmol/L (136-148)
--- NOTE | 2019-06-15 12:23 | PCM.SURGPN ---
- General Info Date of Service: 06/15/19 Date of Surgery/Procedure: 06/14/19 POD#: 1 Functional Status: Reports: Pain Controlled, Tolerating Diet, Ambulating - Review of Systems General: Reports: No Symptoms Pulmonary: Reports: No Symptoms Cardiovascular: Reports: No Symptoms Gastrointestinal: Reports: No Symptoms Musculoskeletal: Reports: Leg Pain Systems Review Comment:: pt up to chair for breakfast tolerating PO intake well pain controlled with PO/IV pain medications thus far - takes percocet 10/325 and morphine at home for pain has been ambulating plan is to transfer to SNF when ready for discharge (medicaid does not require 3 midnight stays) no specific concerns - Patient Data Vitals - Most Recent: Last Vital Signs Temp 98.9 F 06/15/19 11:36 Pulse 77 06/15/19 11:36 Resp 18 06/15/19 11:36 BP 108/73 06/15/19 11:36 Pulse Ox 91 L 06/15/19 11:36 Weight - Most Recent: 93.44 kg I&O - Last 24 Hours: Intake & Output 06/14/19 06/15/19 06/15/19 22:59 06:59 14:59 Intake Total 1999 2064 Output Total 125 950 Balance 1875 1115 Lab Results Last 24 Hrs: Laboratory Results - last 24 hr 06/14/19 06/14/19 06/15/19 Range/Units 20:38 20:38 06:15 WBC 9.74 9.67 (4.0-11.0) K/uL RBC 4.14 L 4.19 L (4.50-5.90) M/uL Hgb 12.2 L 12.2 L (13.0-17.0) g/dL Hct 37.9 L 38.5 (38.0-50.0) % MCV 91.5 91.9 (80.0-98.0) fL MCH 29.5 29.1 (27.0-32.0) pg MCHC 32.2 31.7 (31.0-37.0) g/dL RDW Std Deviation 52.6 54.0 (28.0-62.0) fl RDW Coeff of Dwain 16 H 16 H (11.0-15.0) % Plt Count 105 L 148 L (150-400) K/uL MPV 11.30 11.10 (7.40-12.00) fL Neut % (Auto) 56.8 (48.0-80.0) % Lymph % (Auto) 29.5 (16.0-40.0) % Glades % (Auto) 8.9 (0.0-15.0) % Eos % (Auto) 4.3 (0.0-7.0) % Baso % (Auto) 0.5 (0.0-1.5) % Neut # (Auto) 5.5 (1.4-5.7) K/uL Lymph # (Auto) 2.9 H (0.6-2.4) K/uL Glades # (Auto) 0.9 H (0.0-0.8) K/uL Eos # (Auto) 0.4 (0.0-0.7) K/uL Baso # (Auto) 0.1 (0.0-0.1) K/uL Add Manual Diff YES Neutrophils % (Manual) 56 (48.0-80.0) % Band Neutrophils % 3 % Lymphocytes % (Manual) 37 (16.0-40.0) % Monocytes % (Manual) 4 (0.0-15.0) % Nucleated RBC % 0.0 0.0 /100WBC Absolute Seg Neuts 5.5 (1.4-5.7) Band Neutrophils # 0.3 Lymphocytes # (Manual) 3.6 H (0.6-2.4) Monocytes # (Manual) 0.4 (0.0-0.8) Nucleated RBCs # 0 0 K/uL Sodium 143 (136-148) mmol/L Potassium 3.5 (3.5-5.1) mmol/L Chloride 112 H (98-107) mmol/L Carbon Dioxide 25.2 (21.0-32.0) mmol/L BUN 15 (7.0-18.0) mg/dL Creatinine 0.9 (0.8-1.3) mg/dL Est Cr Clr Drug Dosing 109.84 mL/min Estimated GFR (MDRD) > 60.0 ml/min Glucose 138 H (74-106) mg/dL Calcium 8.4 L (8.5-10.1) mg/dL Magnesium 2.0 (1.8-2.4) mg/dL Med Orders - Current: Current Medications Al Hydroxide/Mg Hydroxide (Mag-Al Plus) 30 ml PO Q4H PRN PRN Reason: Indigestion Apixaban (Eliquis) 5 mg PO BID [facility] Last Admin: 06/15/19 08:07 Dose: 5 mg Aspirin (Aspirin) 81 mg PO DAILY [facility] Last Admin: 06/15/19 08:06 Dose: 81 mg Atorvastatin Calcium (Lipitor) 10 mg PO DAILY [facility] Last Admin: 06/15/19 08:07 Dose: 10 mg Bisacodyl (Dulcolax) 10 mg RECTAL DAILY PRN PRN Reason: Constipation Diphenhydramine HCl (Benadryl) 25 - 50 mg PO Q6H PRN PRN Reason: Itching Docusate Sodium (Colace) 100 mg PO BID PRN PRN Reason: Constipation Famotidine (Pepcid) 40 mg IVPUSH ONARRIVE [facility] Last Admin: 06/14/19 09:34 Dose: 40 mg Famotidine (Pepcid) 40 mg PO BID [facility] Last Admin: 06/15/19 08:07 Dose: Not Given Famotidine (Pepcid) 40 mg PO DAILY [facility] Last Admin: 06/15/19 08:06 Dose: 40 mg Gabapentin (Neurontin) 300 mg PO BID PRN PRN Reason: Pain Acetaminophen 1,000 mg/ Premix 100 mls @ 400 mls/hr IV ONARRIVE [facility] Last Admin: 06/14/19 09:38 Dose: 400 mls/hr Cefazolin Sodium/Dextrose 2 gm (/ Premix) 50 mls @ 100 mls/hr IV ONCALL [facility] Ropivacaine 49.25 ml/Ketorolac Tromethamine 30 mg/Epinephrine HCl 0.5 mg/ Clonidine HCl 80 mcg/ Sodium Chloride 75 mls @ 50 mls/sec INJECT ASDIRECTED [facility] Lactated Ringer's (Ringers, Lactated) 1,000 mls @ 100 mls/hr IV ASDIRECTED [facility] Last Admin: 06/15/19 00:10 Dose: 100 mls/hr Methotrexate (Methotrexate) 15 mg PO Sa@0900 [facility] Morphine Sulfate (Morphine) 1 - 3 mg IVPUSH Q3H PRN PRN Reason: Pain Last Admin: 06/15/19 11:16 Dose: 2 mg Ondansetron HCl (Zofran) 4 mg IVPUSH Q6H PRN PRN Reason: Nausea/Vomiting Oxycodone/Acetaminophen (Percocet 325-10 Mg) 1 - 2 tab PO Q4H PRN PRN Reason: Pain Last Admin: 06/15/19 10:35 Dose: 2 tab Polyethylene Glycol (Miralax) 17 gm PO DAILY [facility] Last Admin: 06/15/19 08:06 Dose: 17 gm Prednisone (Prednisone) 5 mg PO DAILY [facility] Last Admin: 06/15/19 08:07 Dose: 5 mg Scopolamine (Transderm-Scop) 1.5 mg TRDERM ONARRIVE [facility] Last Admin: 06/14/19 09:34 Dose: 1.5 mg Sodium Chloride (Saline Flush) 10 ml FLUSH ASDIRECTED PRN PRN Reason: Keep Vein Open Sodium Chloride (Saline Flush) 2.5 ml FLUSH ASDIRECTED PRN PRN Reason: Keep Vein Open Discontinued Medications Cefazolin Sodium (Ancef) Confirm Administered Dose 2 gm .ROUTE .STK-MED ONE Stop: 06/14/19 09:18 Ephedrine Sulfate (Ephedrine Sulfate) Confirm Administered Dose 50 mg .ROUTE .STK-MED ONE Stop: 06/14/19 09:18 Fentanyl (Sublimaze) Confirm Administered Dose 100 mcg .ROUTE .STK-MED ONE Stop: 06/14/19 13:20 Fentanyl (Sublimaze) Confirm Administered Dose 100 mcg .ROUTE .STK-MED ONE Stop: 06/14/19 13:43 Glycopyrrolate (Robinul) Confirm Administered Dose 0.2 mg .ROUTE .STK-MED ONE Stop: 06/14/19 13:30 Tranexamic Acid 2,000 mg/ (Sodium Chloride) 120 mls @ 600 mls/hr IV ASDIRECTED ONE Stop: 06/14/19 08:11 Last Admin: 06/14/19 16:39 Dose: Not Given Sodium Chloride (Normal Saline) Confirm Administered Dose 40 mls @ as directed .ROUTE .STK-MED ONE Stop: 06/14/19 09:18 Cefazolin Sodium/Dextrose 2 gm (/ Premix) 50 mls @ 100 mls/hr IV Q8H [facility] Stop: 06/15/19 05:29 Last Admin: 06/15/19 04:04 Dose: 100 mls/hr Ketorolac Tromethamine (Toradol) 15 mg IVPUSH Q6H [facility] Stop: 06/15/19 05:00 Last Admin: 06/15/19 02:39 Dose: 15 mg Lidocaine (Xylocaine-Mpf 2%) Confirm Administered Dose 5 ml .ROUTE .STK-MED ONE Stop: 06/14/19 13:23 Midazolam HCl (Versed 1 Mg/Ml) Confirm Administered Dose 2 mg .ROUTE .STK-MED ONE Stop: 06/14/19 09:38 Morphine Sulfate (Morphine [employer] 30 Mg In 30 Ml) 30 mg IV ASDIRECTED PRN; Protocol PRN Reason: Pain Stop: 06/15/19 06:00 Last Admin: 06/14/19 15:29 Dose: 30 mg Ondansetron HCl (Zofran) Confirm Administered Dose 4 mg .ROUTE .STK-MED ONE Stop: 06/14/19 09:18 Oxycodone HCl (Oxycodone) 5 - 10 mg PO Q4H PRN PRN Reason: Pain Stop: 06/15/19 06:00 Last Admin: 06/14/19 17:55 Dose: 10 mg Propofol (Diprivan 20 Ml) Confirm Administered Dose 400 mg .ROUTE .STK-MED ONE Stop: 06/14/19 09:19 Propofol (Diprivan 20 Ml) Confirm Administered Dose 400 mg .ROUTE .STK-MED ONE Stop: 06/14/19 13:35 Propofol (Diprivan 20 Ml) Confirm Administered Dose 200 mg .ROUTE .STK-MED ONE Stop: 06/14/19 14:27 Tranexamic Acid (Cyklokapron) Confirm Administered Dose 2,000 mg .ROUTE .STK- MED ONE Stop: 06/14/19 12:09 - Exam Wound/Incisions: Dressing Dry and Intact. No: Drainage, Erythema General: Alert, Oriented Cardiovascular: Regular Rate, Regular Rhythm Extremities: Other (exam RLE - at/ehl/gastroc 5/5, dp 2+, sensation intact distally. ) Physical Findings Comment:: vss, afeb uo 1000+mL hgb 12.2 - Problem List Review Problem List Initiated/Reviewed/Updated: Yes - My Orders Last 24 Hours: Active Orders 24 hr Category Date Time Status Communication Order [RC] PRN Care 06/14/19 14:41 Active Communication Order [RC] PRN Care 06/14/19 14:41 Active Neurovascular Check [RC] Q2HR Care 06/14/19 14:41 Active Notify Provider Consults [RC] ASDIRECTED Care 06/14/19 14:50 Active Notify Provider Vital Signs [RC] ASDIRECTED Care 06/14/19 14:41 Active RT Incentive Spirometry [RC] Q1HWA Care 06/14/19 14:41 Active Vital Signs [RC] Q4H Care 06/14/19 14:41 Active Wound Care [RC] DAILY Care 06/14/19 14:41 Active Consult to Physician [CONS] Routine Cons 06/14/19 14:49 Active PT Evaluation and Treatment [CONS] Routine Cons 06/14/19 14:41 Active BASIC METABOLIC PANEL,BMP [CHEM] AM Lab 06/15/19 06:15 Received HEMOGLOBIN/HEMATOCRIT,HH [HEME] DAILY Lab 06/16/19 06:00 Ordered MG [MAGNESIUM] [CHEM] AM Lab 06/15/19 06:15 Received Acetaminophen/oxyCODONE [Percocet 325-10 MG] Med 06/15/19 06:00 Active 1 - 2 tab PO Q4H PRN Alum Hydrox/Mag Hydrox/Simeth [Mag-Al Plus] Med 06/14/19 14:41 Active 30 ml PO Q4H PRN Apixaban [Eliquis] Med 06/14/19 21:00 Active 5 mg PO BID Aspirin Med 06/15/19 09:00 Active 81 mg PO DAILY Bisacodyl [Dulcolax] Med 06/14/19 14:41 Active 10 mg RECTAL DAILY PRN Docusate Sodium [Colace] Med 06/14/19 14:41 Active 100 mg PO BID PRN Famotidine [Pepcid] Med 06/14/19 21:00 Active 40 mg PO BID Famotidine [Pepcid] Med 06/15/19 09:00 Active 40 mg PO DAILY Gabapentin [Neurontin] Med 06/14/19 14:45 Active 300 mg PO BID PRN Methotrexate Med 06/19/19 09:00 Active 15 mg PO Sa@0900 Morphine Med 06/15/19 06:00 Active 1 - 3 mg IVPUSH Q3H PRN Ondansetron [Zofran] Med 06/14/19 14:41 Active 4 mg IVPUSH Q6H PRN Polyethylene Glycol 3350 [MiraLAX] Med 06/15/19 09:00 Active 17 gm PO DAILY Sodium Chloride 0.9% [Saline Flush] Med 06/14/19 14:45 Active 10 ml FLUSH ASDIRECTED PRN Sodium Chloride 0.9% [Saline Flush] Med 06/14/19 14:45 Active 2.5 ml FLUSH ASDIRECTED PRN atorvaSTATin [Lipitor] Med 06/15/19 09:00 Active 10 mg PO DAILY diphenhydrAMINE [Benadryl] Med 06/14/19 14:41 Active 25 - 50 mg PO Q6H PRN predniSONE Med 06/15/19 09:00 Active 5 mg PO DAILY Convert IV to Saline Lock [OM.PC] PRN Ot 06/15/19 06:00 Ordered Ice Therapy [OM.PC] Routine Ot 06/14/19 14:41 Ordered Medication Orders Al Hydroxide/Mg Hydroxide (Mag-Al Plus) 30 ml PO Q4H PRN PRN Reason: Indigestion Apixaban (Eliquis) 5 mg PO BID [facility] Last Admin: 06/15/19 08:07 Dose: 5 mg Admin: 06/14/19 20:51 Dose: 5 mg Aspirin (Aspirin) 81 mg PO DAILY [facility] Last Admin: 06/15/19 08:06 Dose: 81 mg Atorvastatin Calcium (Lipitor) 10 mg PO DAILY [facility] Last Admin: 06/15/19 08:07 Dose: 10 mg Bisacodyl (Dulcolax) 10 mg RECTAL DAILY PRN PRN Reason: Constipation Diphenhydramine HCl (Benadryl) 25 - 50 mg PO Q6H PRN PRN Reason: Itching Docusate Sodium (Colace) 100 mg PO BID PRN PRN Reason: Constipation Famotidine (Pepcid) 40 mg IVPUSH ONARRIVE [facility] Last Admin: 06/14/19 09:34 Dose: 40 mg Famotidine (Pepcid) 40 mg PO BID [facility] Last Admin: 06/15/19 08:07 Dose: Not Given Admin: 06/14/19 20:51 Dose: 40 mg Famotidine (Pepcid) 40 mg PO DAILY [facility] Last Admin: 06/15/19 08:06 Dose: 40 mg Gabapentin (Neurontin) 300 mg PO BID PRN PRN Reason: Pain Acetaminophen 1,000 mg/ Premix 100 mls @ 400 mls/hr IV ONARRIVE [facility] Last Admin: 06/14/19 09:38 Dose: 400 mls/hr Cefazolin Sodium/Dextrose 2 gm (/ Premix) 50 mls @ 100 mls/hr IV ONCALL [facility] Ropivacaine 49.25 ml/Ketorolac Tromethamine 30 mg/Epinephrine HCl 0.5 mg/ Clonidine HCl 80 mcg/ Sodium Chloride 75 mls @ 50 mls/sec INJECT ASDIRECTED [facility] Lactated Ringer's (Ringers, Lactated) 1,000 mls @ 100 mls/hr IV ASDIRECTED [facility] Last Admin: 06/15/19 00:10 Dose: 100 mls/hr Infusion: 06/14/19 19:33 Dose: 100 mls/hr Admin: 06/14/19 09:33 Dose: 100 mls/hr Methotrexate (Methotrexate) 15 mg PO Sa@0900 [facility] Morphine Sulfate (Morphine) 1 - 3 mg IVPUSH Q3H PRN PRN Reason: Pain Last Admin: 06/15/19 11:16 Dose: 2 mg Ondansetron HCl (Zofran) 4 mg IVPUSH Q6H PRN PRN Reason: Nausea/Vomiting Oxycodone/Acetaminophen (Percocet 325-10 Mg) 1 - 2 tab PO Q4H PRN PRN Reason: Pain Last Admin: 06/15/19 10:35 Dose: 2 tab Admin: 06/15/19 06:34 Dose: 2 tab Polyethylene Glycol (Miralax) 17 gm PO DAILY [facility] Last Admin: 06/15/19 08:06 Dose: 17 gm Prednisone (Prednisone) 5 mg PO DAILY [facility] Last Admin: 06/15/19 08:07 Dose: 5 mg Scopolamine (Transderm-Scop) 1.5 mg TRDERM ONARRIVE [facility] Last Admin: 06/14/19 09:34 Dose: 1.5 mg Sodium Chloride (Saline Flush) 10 ml FLUSH ASDIRECTED PRN PRN Reason: Keep Vein Open Sodium Chloride (Saline Flush) 2.5 ml FLUSH ASDIRECTED PRN PRN Reason: Keep Vein Open - Assessment Assessment (Free Text/Narrative):: POD#1 R TKA acute posthemorrhagic anemia - Plan Plan (Free Text/Narrative):: DC IV fluids - saline lock IV DC arias 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 d/ch medications written case management has confirmed ability to transfer to SNF tomorrow, Dr. Washburn will follow the patient. CC of discharge summary will be forwarded to him.
[2019-06-15] MEDS: HYDROmorphone 1 MG/ML Syringe IVPUSH PRN ×2 (18:22→21:40)
[2019-06-16] MEDS: Acetaminophen/oxyCODONE 325-10 MG Tab PO PRN ×3 (01:09→11:05)
[2019-06-16] MEDS: HYDROmorphone 1 MG/ML Syringe IVPUSH PRN ×3 (02:07→09:45)
[2019-06-16 07:42] VITALS: BP 116/72
[2019-06-16] MEDS: Aspirin 81 MG Tab.Chew PO SCH (08:19)
[2019-06-16] MEDS: Apixaban 5 MG Tab PO SCH (08:20)
[2019-06-16] MEDS: Polyethylene Glycol 3350 Powder 17 GM Packet PO SCH (08:20)
[2019-06-16] MEDS: Famotidine 20 MG Tab PO SCH ×2 (08:20)
[2019-06-16] MEDS: atorvaSTATin 10 MG Tab PO SCH (08:20)
[2019-06-16] MEDS: predniSONE 10 MG Tab PO SCH (08:21)
--- NOTE | 2019-06-16 09:51 | PCM.SURGPN ---
- General Info Date of Service: 06/16/19 Date of Surgery/Procedure: 06/14/19 POD#: 2 Functional Status: Reports: Tolerating Diet, Ambulating, Urinating. Denies: Pain Controlled - Review of Systems General: Reports: No Symptoms Pulmonary: Reports: No Symptoms Cardiovascular: Reports: No Symptoms Gastrointestinal: Reports: No Symptoms Musculoskeletal: Reports: Leg Pain (reports 09/09, improves with IV dilaudid) Systems Review Comment:: pt up to chair for breakfast continues to tolerate PO intake well reports 09/09 pain, improves with IV dilaudid has not been receiving MSContin 30mg BID due to IV narcotic availability, also was on Percocet preoperatively participating with PT, ambulating well with FWW - Patient Data Vitals - Most Recent: Last Vital Signs Temp 98.4 F 06/16/19 07:42 Pulse 102 H 06/16/19 07:42 Resp 16 06/16/19 07:42 BP 116/72 06/16/19 07:42 Pulse Ox 92 L 06/16/19 07:42 Weight - Most Recent: 93.44 kg I&O - Last 24 Hours: Intake & Output 06/15/19 06/16/19 06/16/19 22:59 06:59 14:59 Intake Total 558 750 Output Total 925 850 Balance -367 -100 Lab Results Last 24 Hrs: Laboratory Results - last 24 hr 06/15/19 06/16/19 Range/Units 06:15 06:15 Hgb 13.6 (13.0-17.0) g/dL Hct 40.9 (38.0-50.0) % Sodium 144 (136-148) mmol/L Potassium 3.8 (3.5-5.1) mmol/L Chloride 111 H (98-107) mmol/L Carbon Dioxide 27.3 (21.0-32.0) mmol/L BUN 14 (7.0-18.0) mg/dL Creatinine 0.9 (0.8-1.3) mg/dL Est Cr Clr Drug Dosing 109.84 mL/min Estimated GFR (MDRD) > 60.0 ml/min Glucose 100 (74-106) mg/dL Calcium 8.3 L (8.5-10.1) mg/dL Magnesium 2.0 (1.8-2.4) mg/dL Med Orders - Current: Current Medications Al Hydroxide/Mg Hydroxide (Mag-Al Plus) 30 ml PO Q4H PRN PRN Reason: Indigestion Apixaban (Eliquis) 5 mg PO BID [facility] Last Admin: 06/16/19 08:20 Dose: 5 mg Aspirin (Aspirin) 81 mg PO DAILY [facility] Last Admin: 06/16/19 08:19 Dose: 81 mg Atorvastatin Calcium (Lipitor) 10 mg PO DAILY [facility] Last Admin: 06/16/19 08:20 Dose: 10 mg Bisacodyl (Dulcolax) 10 mg RECTAL DAILY PRN PRN Reason: Constipation Diphenhydramine HCl (Benadryl) 25 - 50 mg PO Q6H PRN PRN Reason: Itching Docusate Sodium (Colace) 100 mg PO BID PRN PRN Reason: Constipation Famotidine (Pepcid) 40 mg PO BID [facility] Last Admin: 06/16/19 08:20 Dose: Not Given Famotidine (Pepcid) 40 mg PO DAILY [facility] Last Admin: 06/16/19 08:20 Dose: 40 mg Gabapentin (Neurontin) 300 mg PO BID PRN PRN Reason: Pain Hydromorphone HCl (Dilaudid) 0 mg IVPUSH Q3H PRN PRN Reason: Pain Last Admin: 06/16/19 09:45 Dose: 1 mg Lactated Ringer's (Ringers, Lactated) 1,000 mls @ 100 mls/hr IV ASDIRECTED [facility] Last Admin: 06/15/19 00:10 Dose: 100 mls/hr Methotrexate (Methotrexate) 15 mg PO Sa@0900 [facility] Ondansetron HCl (Zofran) 4 mg IVPUSH Q6H PRN PRN Reason: Nausea/Vomiting Oxycodone/Acetaminophen (Percocet 325-10 Mg) 1 - 2 tab PO Q4H PRN PRN Reason: Pain Last Admin: 06/16/19 06:04 Dose: 2 tab Polyethylene Glycol (Miralax) 17 gm PO DAILY [facility] Last Admin: 06/16/19 08:20 Dose: 17 gm Prednisone (Prednisone) 5 mg PO DAILY [facility] Last Admin: 06/16/19 08:21 Dose: 5 mg Scopolamine (Transderm-Scop) 1.5 mg TRDERM ONARRIVE [facility] Last Admin: 06/14/19 09:34 Dose: 1.5 mg Sodium Chloride (Saline Flush) 10 ml FLUSH ASDIRECTED PRN PRN Reason: Keep Vein Open Sodium Chloride (Saline Flush) 2.5 ml FLUSH ASDIRECTED PRN PRN Reason: Keep Vein Open Discontinued Medications Cefazolin Sodium (Ancef) Confirm Administered Dose 2 gm .ROUTE .STK-MED ONE Stop: 06/14/19 09:18 Ephedrine Sulfate (Ephedrine Sulfate) Confirm Administered Dose 50 mg .ROUTE .STK-MED ONE Stop: 06/14/19 09:18 Famotidine (Pepcid) 40 mg IVPUSH ONARRIVE [facility] Last Admin: 06/14/19 09:34 Dose: 40 mg Fentanyl (Sublimaze) Confirm Administered Dose 100 mcg .ROUTE .STK-MED ONE Stop: 06/14/19 13:20 Fentanyl (Sublimaze) Confirm Administered Dose 100 mcg .ROUTE .STK-MED ONE Stop: 06/14/19 13:43 Glycopyrrolate (Robinul) Confirm Administered Dose 0.2 mg .ROUTE .STK-MED ONE Stop: 06/14/19 13:30 Acetaminophen 1,000 mg/ Premix 100 mls @ 400 mls/hr IV ONARRIVE [facility] Last Admin: 06/14/19 09:38 Dose: 400 mls/hr Cefazolin Sodium/Dextrose 2 gm (/ Premix) 50 mls @ 100 mls/hr IV ONCALL [facility] Ropivacaine 49.25 ml/Ketorolac Tromethamine 30 mg/Epinephrine HCl 0.5 mg/ Clonidine HCl 80 mcg/ Sodium Chloride 75 mls @ 50 mls/sec INJECT ASDIRECTED [facility] Tranexamic Acid 2,000 mg/ (Sodium Chloride) 120 mls @ 600 mls/hr IV ASDIRECTED ONE Stop: 06/14/19 08:11 Last Admin: 06/14/19 16:39 Dose: Not Given Sodium Chloride (Normal Saline) Confirm Administered Dose 40 mls @ as directed .ROUTE .STK-MED ONE Stop: 06/14/19 09:18 Cefazolin Sodium/Dextrose 2 gm (/ Premix) 50 mls @ 100 mls/hr IV Q8H [facility] Stop: 06/15/19 05:29 Last Admin: 06/15/19 04:04 Dose: 100 mls/hr Ketorolac Tromethamine (Toradol) 15 mg IVPUSH Q6H [facility] Stop: 06/15/19 05:00 Last Admin: 06/15/19 02:39 Dose: 15 mg Lidocaine (Xylocaine-Mpf 2%) Confirm Administered Dose 5 ml .ROUTE .STK-MED ONE Stop: 06/14/19 13:23 Midazolam HCl (Versed 1 Mg/Ml) Confirm Administered Dose 2 mg .ROUTE .STK-MED ONE Stop: 06/14/19 09:38 Morphine Sulfate (Morphine [employer] Systems [employer] 30 Mg In 30 Ml) 30 mg IV ASDIRECTED PRN; Protocol PRN Reason: Pain Stop: 06/15/19 06:00 Last Admin: 06/14/19 15:29 Dose: 30 mg Morphine Sulfate (Morphine) 1 - 3 mg IVPUSH Q3H PRN PRN Reason: Pain Last Admin: 06/15/19 17:32 Dose: 3 mg Ondansetron HCl (Zofran) Confirm Administered Dose 4 mg .ROUTE .STK-MED ONE Stop: 06/14/19 09:18 Oxycodone HCl (Oxycodone) 5 - 10 mg PO Q4H PRN PRN Reason: Pain Stop: 06/15/19 06:00 Last Admin: 06/14/19 17:55 Dose: 10 mg Propofol (Diprivan 20 Ml) Confirm Administered Dose 400 mg .ROUTE .STK-MED ONE Stop: 06/14/19 09:19 Propofol (Diprivan 20 Ml) Confirm Administered Dose 400 mg .ROUTE .STK-MED ONE Stop: 06/14/19 13:35 Propofol (Diprivan 20 Ml) Confirm Administered Dose 200 mg .ROUTE .STK-MED ONE Stop: 06/14/19 14:27 Tranexamic Acid (Cyklokapron) Confirm Administered Dose 2,000 mg .ROUTE .STK- MED ONE Stop: 06/14/19 12:09 - Exam Wound/Incisions: Healing Well. No: Drainage, Erythema General: Alert, Oriented Cardiovascular: Regular Rate, Regular Rhythm Extremities: Other (exam LLE - incision c/d/shadia intact, at/ehl/gastroc 5/5, dp 2+, sensation intact distally) Physical Findings Comment:: vss, afeb hgb 13.6 - Problem List & Annotations (1) S/P total knee arthroplasty SNOMED Code(s): 2732183836003, 233786070, 5068471288568 Code(s): Z96.659 - PRESENCE OF UNSPECIFIED ARTIFICIAL KNEE JOINT Status: Acute Current Visit: Yes Qualifiers: Laterality: left Qualified Code(s): Z96.652 - Presence of left artificial knee joint - Problem List Review Problem List Initiated/Reviewed/Updated: Yes - My Orders Last 24 Hours: Active Orders 24 hr Category Date Time Status Ready for Discharge [RC] PER UNIT ROUTINE Care 06/16/19 08:05 Active Aspirin Med 06/15/19 09:00 Active 81 mg PO DAILY Famotidine [Pepcid] Med 06/15/19 09:00 Active 40 mg PO DAILY HYDROmorphone [Dilaudid] Med 06/15/19 17:44 Active See Dose Instructions IVPUSH Q3H PRN Methotrexate Med 06/19/19 09:00 Active 15 mg PO Sa@0900 Polyethylene Glycol 3350 [MiraLAX] Med 06/15/19 09:00 Active 17 gm PO DAILY atorvaSTATin [Lipitor] Med 06/15/19 09:00 Active 10 mg PO DAILY predniSONE Med 06/15/19 09:00 Active 5 mg PO DAILY Medication Orders Al Hydroxide/Mg Hydroxide (Mag-Al Plus) 30 ml PO Q4H PRN PRN Reason: Indigestion Apixaban (Eliquis) 5 mg PO BID [facility] Last Admin: 06/16/19 08:20 Dose: 5 mg Admin: 06/15/19 21:10 Dose: 5 mg Admin: 06/15/19 08:07 Dose: 5 mg Admin: 06/14/19 20:51 Dose: 5 mg Aspirin (Aspirin) 81 mg PO DAILY [facility] Last Admin: 06/16/19 08:19 Dose: 81 mg Admin: 06/15/19 08:06 Dose: 81 mg Atorvastatin Calcium (Lipitor) 10 mg PO DAILY [facility] Last Admin: 06/16/19 08:20 Dose: 10 mg Admin: 06/15/19 08:07 Dose: 10 mg Bisacodyl (Dulcolax) 10 mg RECTAL DAILY PRN PRN Reason: Constipation Diphenhydramine HCl (Benadryl) 25 - 50 mg PO Q6H PRN PRN Reason: Itching Docusate Sodium (Colace) 100 mg PO BID PRN PRN Reason: Constipation Famotidine (Pepcid) 40 mg PO BID [facility] Last Admin: 06/16/19 08:20 Dose: Not Given Admin: 06/15/19 21:10 Dose: 40 mg Admin: 06/15/19 08:07 Dose: Not Given Admin: 06/14/19 20:51 Dose: 40 mg Famotidine (Pepcid) 40 mg PO DAILY [facility] Last Admin: 06/16/19 08:20 Dose: 40 mg Admin: 06/15/19 08:06 Dose: 40 mg Gabapentin (Neurontin) 300 mg PO BID PRN PRN Reason: Pain Hydromorphone HCl (Dilaudid) 0 mg IVPUSH Q3H PRN PRN Reason: Pain Last Admin: 06/16/19 09:45 Dose: 1 mg Admin: 06/16/19 06:36 Dose: 1 mg Admin: 06/16/19 02:07 Dose: 1 mg Admin: 06/15/19 21:40 Dose: 1 mg Admin: 06/15/19 18:22 Dose: 1 mg Lactated Ringer's (Ringers, Lactated) 1,000 mls @ 100 mls/hr IV ASDIRECTED [facility] Last Admin: 06/15/19 00:10 Dose: 100 mls/hr Infusion: 06/14/19 19:33 Dose: 100 mls/hr Admin: 06/14/19 09:33 Dose: 100 mls/hr Methotrexate (Methotrexate) 15 mg PO Sa@0900 [facility] Ondansetron HCl (Zofran) 4 mg IVPUSH Q6H PRN PRN Reason: Nausea/Vomiting Oxycodone/Acetaminophen (Percocet 325-10 Mg) 1 - 2 tab PO Q4H PRN PRN Reason: Pain Last Admin: 06/16/19 06:04 Dose: 2 tab Admin: 06/16/19 01:09 Dose: 2 tab Admin: 06/15/19 21:08 Dose: 2 tab Admin: 06/15/19 14:33 Dose: 2 tab Admin: 06/15/19 10:35 Dose: 2 tab Admin: 06/15/19 06:34 Dose: 2 tab Polyethylene Glycol (Miralax) 17 gm PO DAILY [facility] Last Admin: 06/16/19 08:20 Dose: 17 gm Admin: 06/15/19 08:06 Dose: 17 gm Prednisone (Prednisone) 5 mg PO DAILY [facility] Last Admin: 06/16/19 08:21 Dose: 5 mg Admin: 06/15/19 08:07 Dose: 5 mg Scopolamine (Transderm-Scop) 1.5 mg TRDERM ONARRIVE [facility] Last Admin: 06/14/19 09:34 Dose: 1.5 mg Sodium Chloride (Saline Flush) 10 ml FLUSH ASDIRECTED PRN PRN Reason: Keep Vein Open Sodium Chloride (Saline Flush) 2.5 ml FLUSH ASDIRECTED PRN PRN Reason: Keep Vein Open - Assessment Assessment (Free Text/Narrative):: POD#2 L TKA acute posthemorrhagic anemia - Plan Plan (Free Text/Narrative):: dressing changed to aquacel d/w patient that PO dilaudid is not recommended, and I do anticipate his pain to improve once he resumes his MSContin upon discharge will cc Dr Washburn on discharge summary for continuity of care in SNF d/ch summary #[id number]
--- NOTE | 2019-06-16 15:10 | DISCH ---
DATE OF DISCHARGE: 06/16/2019 PRIMARY CARE PHYSICIAN: Dominga PCP ADMITTING DIAGNOSIS: Degenerative joint disease, left knee, tricompartmental. OTHER MEDICAL DIAGNOSES: 1. Coronary artery disease, status post percutaneous coronary intervention. 2. Rheumatoid arthritis. 3. Recurrent deep venous thrombosis/pulmonary embolism. 4. Chronic pain. DISCHARGE DIAGNOSES: 1. Degenerative joint disease, left knee, tricompartmental. 2. Coronary artery disease, status post percutaneous coronary intervention. 3. Rheumatoid arthritis. 4. Recurrent deep venous thrombosis/pulmonary embolism. 5. Chronic pain. 6. Acute posthemorrhagic anemia. BRIEF HISTORY: Massimo Raza is a 58-year-old male who complains of bilateral knee pain. He has tried and failed conservative treatment. At that time, we recommended surgical intervention for his most symptomatic knee, which was his left knee at that time. On June 14, 2019, the patient underwent a left total knee arthroplasty done by Dr. Nicole Patten. This was done under spinal anesthesia with sedation. Estimated blood loss was 50 mL. Tourniquet time was 49 minutes. There were no known complications. Upon completion of the procedure, the patient was transferred to the PACU and subsequently to Med/Surg for postoperative care. HOSPITAL COURSE: Postoperatively, the patient did well. His pain was controlled with a combination of oral and IV pain medications. He received 2 doses of antibiotics postoperatively for a total of 24 hours of antibiotic coverage. Physical Therapy followed him throughout hospital stay. The hospitalist service followed him as well for management of his medical comorbidities. His vital signs have been stable. He has been afebrile. His hemoglobin on the morning of June 16 was 13.6. At this time, the patient is doing well. He is tolerating oral intake. He is ambulating with a wheeled walker. His pain is controlled with pain medications, and I anticipate this to continue to improve when he resumes his home dose of MS Contin. DISCHARGE MEDICATIONS: 1. Percocet 10/325. 2. Colace 100 mg. 3. MiraLAX. Home medications, which will be resumed are: 1. Eliquis 5 mg by mouth twice daily. 2. Aspirin 81 mg p.o. daily. 3. Lipitor 10 mg p.o. daily. 4. Gabapentin 300 mg p.o. b.i.d. 5. Methotrexate 2.5 mg 6 tabs p.o. weekly. 6. Prednisone 5 mg p.o. daily. 7. Ranitidine 300 mg p.o. b.i.d. 8. Vitamin D3 500 units p.o. daily. 9. MS Contin 30 mg p.o. b.i.d. We will hold his Remicade until his incision is well healed, anticipating 3-4 weeks. DISCHARGE INSTRUCTIONS: Please refer back to the patient's EHR as well as Dr. Patten's postoperative total knee arthroplasty patient instructions. Should he has questions or concerns prior to his followup appointment, he has been advised to contact the clinic. SHARON DONNELLY /[id number]
[2019-06-19] MEDS ORDERED: Methotrexate 2.5 MG Tab PO SCH (09:00)
== END 2019-06-16 11:10 | DRG 470 ==
LOC: MW.MS 08:54 → EDSTATUS 12:00
PROVIDERS: ADMIT Orthopaedic Surgery; ATTEND Orthopaedic Surgery
PROC: 0SRD0J9 Replacement of Left Knee Joint with Synthetic Substitute, Cemented, Open Approach (ICD-10-PCS; principal; 2019-06-14)
DX: M17.12 Unilateral primary osteoarthritis, left knee (principal); D62 Acute posthemorrhagic anemia; I25.10 Atherosclerotic heart disease of native coronary artery without angina pectoris; M81.0 Age-related osteoporosis without current pathological fracture; G89.29 Other chronic pain; E78.00 Pure hypercholesterolemia, unspecified; F11.90 Opioid use, unspecified, uncomplicated; M06.9 Rheumatoid arthritis, unspecified; I25.2 Old myocardial infarction; Z86.711 Personal history of pulmonary embolism; Z87.442 Personal history of urinary calculi; Z95.5 Presence of coronary angioplasty implant and graft; Z87.891 Personal history of nicotine dependence; Z79.52 Long term (current) use of systemic steroids; Z86.718 Personal history of other venous thrombosis and embolism; Z79.82 Long term (current) use of aspirin; Z79.899 Other long term (current) drug therapy
CPT/HCPCS: 36415; 73560-26-LT; 73560-LT; 80048; 83735; 85014; 85018; 85025; 86850; 86900; 86901; 97110-GP; 97161-GP; A4217; A9270-GY; C1713; C1776; J0131; J0171; J0690; J0735; J1170; J1885; J2001; J2250; J2270; J2274; J2405; J2704; J2795; J3010; J3490; J7050; J7120

== ENCOUNTER 2020-06-21 17:29 | Emergency (ER) | payer MEDICAID ==
[2020-06-21] MEDS ORDERED: Aspirin 81 MG Tab.Chew PO ONE (17:35)
[2020-06-21 18:23] LABS: BLOOD UREA NITROGEN,BUN 16 mg/dL (7.0-18.0); CARBON DIOXIDE,CO2 26.1 mmol/L (21.0-32.0); CHLORIDE,CL 102 mmol/L (98-107); GLUCOSE RANDOM 100 mg/dL (74-106); LIPASE 125 U/L (73-393); POTASSIUM,K 3.8 mmol/L (3.5-5.1); SODIUM,NA 140 mmol/L (136-148)
--- NOTE | 2020-06-21 18:45 | CR ---
INDICATION: Chest pain TECHNIQUE: Chest 2 views. COMPARISON: January 08, 2019 FINDINGS: Stable cardiomediastinal silhouette. Normal pulmonary vasculature. No focal infiltrate, effusion. Acute osseous abnormality. IMPRESSION: No sign of acute disease. Dictated by Maite Chan MD @ Jun 21 2020 6:43PM Signed by Dr. Maite Chan @ Jun 21 2020 6:44PM
[2020-06-21] MEDS ORDERED: Iopamidol 755 MG/ML 500 ML Multipack Bottle IVPUSH STA (19:22)
--- NOTE | 2020-06-21 19:54 | EDM.PDOC ---
ED HPI GENERAL MEDICAL PROBLEM - General Chief Complaint: Chest Pain Stated Complaint: CHEST PAIN, SOB Time Seen by Provider: 06/21/20 17:34 - History of Present Illness INITIAL COMMENTS - FREE TEXT/NARRATIVE: History of present illness: Patient presents with chest pain that he describes as chest tightness and heaviness on his chest with some shortness of breath he had similar episode 2 years ago when he had a pulmonary embolus he denies any fever he has had a mild dry cough he has had some intermittent headache that was gradual in onset atraumatic and afebrile. He denies any leg pain or leg swelling no nausea or vomiting no abdominal pain nothing seems to make this better or worse. He is on Eliquis for his prior DVT conversion to PE he has been taking it as directed. Review of systems: As per history of present illness and below otherwise all systems reviewed and negative. Past medical history: As per history of present illness and as reviewed below otherwise noncontributory. Surgical history: As per history of present illness and as reviewed below otherwise noncontributory. Social history: No reported history of drug or alcohol abuse. Family history: As per history of present illness and as reviewed below otherwise noncontributory. Physical exam: HEENT: Atraumatic, normocephalic, pupils reactive, negative for conjunctival pallor or scleral icterus, mucous membranes moist, throat clear, neck supple, nontender, trachea midline. Lungs: Clear to auscultation, breath sounds equal bilaterally, chest nontender. Heart: S1S2, regular, negative for clicks, rubs, or JVD. Abdomen: Soft, nondistended, nontender. Negative for masses or hepatosplenomegaly. Negative for costovertebral tenderness. Pelvis: Stable nontender. Genitourinary: Deferred. Rectal: Deferred. Extremities: Atraumatic, negative for cords or calf pain. Neurovascular unremarkable. Neuro: Awake, alert, oriented. Cranial nerves II through XII unremarkable. Cerebellum unremarkable. Motor and sensory unremarkable throughout. Exam no nfocal. Definitive disposition and diagnosis as appropriate pending reevaluation and review of above. Left Chest Pain Score (Numeric/FACES): 6 - Related Data Allergies Allergy/AdvReac Type Severity Reaction Status Date / Time No Known Allergies Allergy Verified 06/21/20 17:32 Home Meds: Home Meds Aspirin 81 mg PO DAILY 04/20/17 [History] Gabapentin [Neurontin] 300 mg PO BID PRN 04/20/17 [History] Morphine [MS Contin] 30 mg PO BID 04/20/17 [History] Prednisone [IJD: Prednisone] 5 mg PO DAILY 04/20/17 [History] Ranitidine HCl [Ranitidine] 300 mg PO BID 01/08/19 [History] atorvaSTATin [Lipitor] 10 mg PO DAILY 01/08/19 [History] Apixaban [Eliquis] 5 mg PO BID #60 tablet 01/09/19 [Rx] Cholecalciferol (Vitamin D3) [Vitamin D3] 500 units PO DAILY 06/08/19 [History] metHOTREXate sodium [Methotrexate] 6 tab PO WEEKLY 06/08/19 [History] Docusate Sodium [Colace] 100 mg PO BID PRN #60 cap 06/16/19 [Rx] oxyCODONE HCl/Acetaminophen [Percocet 10-325 mg Tablet] 2 tab PO Q4H PRN #60 tablet 06/16/19 [Rx] polyethylene glycoL 3350 [MiraLAX] 17 gm PO DAILY #14 packet 06/16/19 [Rx] Past Medical History HEENT History: Reports: Other (See Below) Other HEENT History: reading glasses, top denture Cardiovascular History: Reports: Blood Clots/VTE/DVT, CAD, High Cholesterol, Stents Other Cardiovascular History: hx blood clot right leg Respiratory History: Reports: PE Other Respiratory History: PE in Jan from rt. leg DVT, took eloquis until 5 days ago Gastrointestinal History: Reports: Other (See Below) Other Gastrointestinal History: occasional heartburn Genitourinary History: Reports: Renal Calculus, Other (See Below) Other Genitourinary History: hx Bladder tumor Musculoskeletal History: Reports: Arthritis, Osteoporosis, RA Other Musculoskeletal History: chronic pain Neurological History: Reports: None Psychiatric History: Reports: None Endocrine/Metabolic History: Reports: None Hematologic History: Reports: Anticoagulation Therapy Immunologic History: Reports: None Oncologic (Cancer) History: Reports: None Dermatologic History: Reports: None - Infectious Disease History Infectious Disease History: Reports: Chicken Pox, Measles, Mumps, Scarlet Fever - Past Surgical History Head Surgeries/Procedures: Reports: None HEENT Surgical History: Reports: Adenoidectomy, Oral Surgery, Tonsillectomy Endocrine Surgical History: Reports: None Neurological Surgical History: Reports: None Musculoskeletal Surgical History: Reports: None Oncologic Surgical History: Reports: None Dermatological Surgical History: Reports: Other (See Below) Social & Family History - Family History Family Medical History: Noncontributory - Tobacco Use Smoking Status *Q: Unknown Ever Smoked - Caffeine Use Caffeine Use: Reports: Coffee Caffeine Use Comment: 2cups/week - Living Situation & Occupation Living situation: Reports: Alone Occupation: Disabled ED ROS GENERAL - Review of Systems Review Of Systems: See Below ED EXAM, GENERAL - Physical Exam Exam: See Below EKG INTERPRETATION EKG Interpretation Comments: EKG is normal sinus rhythm rate of [address]-T changes no viky ischemia there is right axis read and interpreted by me Course - Vital Signs Text/Narrative:: One-view portable chest read and interpreted by me no acute cardiopulmonary pathology is evident. Patient was reexamined at 9:20 PM he is pain-free he had a negative CT angiogram of the chest for pulmonary embolus. Negative troponin pain is been going on and off for the past 24 hours I offered the patient to stay in the hospital for serial cardiac enzymes versus going home and follow-up with his deicer inspector pneumatic he is choosing to not stay in the hospital and would like to follow-up with his deicer inspector pneumatic in the morning with the understanding that if he has worsening chest pain he needs to return immediately to the emergency department tonight and he is to continue taking his 81 mg aspirin and his Eliquis. Last Recorded V/S: Last Vital Signs Temp 36.9 C 06/21/20 17:32 Pulse 69 06/21/20 18:39 Resp 16 06/21/20 18:39 BP 127/80 06/21/20 18:39 Pulse Ox 96 06/21/20 18:39 - Orders/Labs/Meds Orders: Active Orders 24 hr Category Date Time Status EKG Documentation Completion [RC] STAT Care 06/21/20 17:35 Active Labs: Laboratory Tests 06/21/20 06/21/20 06/21/20 Range/Units 17:50 17:50 17:50 WBC 11.76 H (4.0-11.0) K/uL RBC 5.03 (4.50-5.90) M/uL Hgb 13.4 (13.0-17.0) g/dL Hct 43.8 (38.0-50.0) % MCV 87.1 (80.0-98.0) fL MCH 26.6 L (27.0-32.0) pg MCHC 30.6 L (31.0-37.0) g/dL RDW Std Deviation 46.9 (28.0-62.0) fl RDW Coeff of Dwain 15 (11.0-15.0) % Plt Count 239 (150-400) K/uL MPV 10.90 (7.40-12.00) fL Neut % (Auto) 58.4 (48.0-80.0) % Lymph % (Auto) 29.8 (16.0-40.0) % [place] % (Auto) 7.3 (0.0-15.0) % Eos % (Auto) 4.2 (0.0-7.0) % Baso % (Auto) 0.3 (0.0-1.5) % Neut # (Auto) 6.9 H (1.4-5.7) K/uL Lymph # (Auto) 3.5 H (0.6-2.4) K/uL [place] # (Auto) 0.9 H (0.0-0.8) K/uL Eos # (Auto) 0.5 (0.0-0.7) K/uL Baso # (Auto) 0.0 (0.0-0.1) K/uL Nucleated RBC % 0.0 /100WBC Nucleated RBCs # 0 K/uL INR 1.00 Sodium 140 (136-148) mmol/L Potassium 3.8 (3.5-5.1) mmol/L Chloride 102 (98-107) mmol/L Carbon Dioxide 26.1 (21.0-32.0) mmol/L BUN 16 (7.0-18.0) mg/dL Creatinine 1.0 (0.8-1.3) mg/dL Est Cr Clr Drug Dosing 92.48 mL/min Estimated GFR (MDRD) > 60.0 ml/min Glucose 100 (74-106) mg/dL Calcium 10.0 (8.5-10.1) mg/dL Total Bilirubin 0.4 (0.2-1.0) mg/dL AST 24 (15-37) IU/L ALT 38 (14-63) IU/L Alkaline Phosphatase 78 (46-116) U/L Troponin I < 0.050 (0.000-0.056) ng/mL Total Protein 9.0 H (6.4-8.2) g/dL Albumin 4.2 (3.4-5.0) g/dL Globulin 4.8 H (2.6-4.0) g/dL Albumin/Globulin Ratio 0.9 (0.9-1.6) Lipase 125 (73-393) U/L Meds: Medications Discontinued Medications Generic Name Dose Route Start Last Admin Trade Name Corrie PRN Reason Stop Dose Admin Aspirin 324 mg 06/21/20 17:35 06/21/20 18:38 Aspirin PO 06/21/20 17:36 324 mg ONETIME ONE Administration Iopamidol 75 ml 06/21/20 19:22 06/21/20 19:23 Isovue Multipack-370 (76%) IVPUSH 06/21/20 19:23 75 ml ONETIME STA Administration Departure - Departure Time of Disposition: 21:22 Disposition: Home, Self-Care 01 Condition: Good Clinical Impression: Chest pain - Discharge Information *PRESCRIPTION DRUG MONITORING PROGRAM REVIEWED*: Not Applicable *COPY OF PRESCRIPTION DRUG MONITORING REPORT IN PATIENT ARVIN: Not Applicable Instructions: Nonspecific Chest Pain, Adult Referrals: PCP,None [Primary Care Provider] - Say Montes MD [Physician] - Forms: ED Department Discharge Additional Instructions: The following information is given to patients seen in the emergency department who are being discharged to home. This information is to outline your options for follow-up care. We provide all patients seen in our emergency department with a follow-up referral. The need for follow-up, as well as the timing and circumstances, are variable depending upon the specifics of your emergency department visit. If you don't have a primary care physician on staff, we will provide you with a referral. We always advise you to contact your personal physician following an emergency department visit to inform them of the circumstance of the visit and for follow-up with them and/or the need for any referrals to a consulting specialist. The emergency department will also refer you to a specialist when appropriate. This referral assures that you have the opportunity for follow-up care with a specialist. All of these measure are taken in an effort to provide you with optimal care, which includes your follow-up. Under all circumstances we always encourage you to contact your private physician who remains a resource for coordinating your care. When calling for follow-up care, please make the office aware that this follow-up is from your recent emergency room visit. If for any reason you are refused follow-up, please contact the [facility] Emergency Department at and asked to speak to the emergency department charge nurse. Sepsis Event Note (ED) - Evaluation Sepsis Screening Result: No Definite Risk - Focused Exam Vital Signs: Vital Signs Temp Pulse Resp BP Pulse Ox 06/21/20 18:39 69 16 127/80 96 06/21/20 17:32 36.9 C 104 H 17 171/104 H 95
--- NOTE | 2020-06-21 20:00 | CT ---
INDICATION: Chest pain. TECHNIQUE: CT chest PE was acquired with 75 cc Isovue 370 IV contrast. COMPARISON: None. FINDINGS: Heart and vasculature: Contrast opacification of the pulmonary arterial tree is adequate. No sign of pulmonary embolism. Heart size is normal. Thoracic aorta and pulmonary artery are normal in caliber.Coronary artery atherosclerosis is present. Lungs and pleural: No suspicious nodules or infiltrates. No pleural effusions, pleural thickening, or pneumothorax. Lymph nodes/mediastinum: No mediastinal, hilar, or axillary adenopathy. Thyroid gland is normal. Chest wall: No masses. Upper abdomen: There is cholelithiasis. Otherwise unremarkable. Bones: Unremarkable for age. IMPRESSION: There is coronary artery atherosclerosis. No pulmonary embolism in the lungs are clear. No other finding to explain chest pain. Please note that all CT scans at this facility use dose modulation, iterative reconstruction, and/or weight-based dosing when appropriate to reduce radiation dose to as low as reasonably achievable. Dictated by Jason Powers MD @ Jun 21 2020 7:49PM Signed by Dr. Jason Powers @ Jun 21 2020 7:58PM
[2020-06-21 22:10] VITALS: BP 137/87; PULSE 65
== END 2020-06-21 21:40 | disposition home or self-care (01) ==
LOC: MW.ED 17:29
DX: R07.89 Other chest pain (principal); I25.10 Atherosclerotic heart disease of native coronary artery without angina pectoris; E78.00 Pure hypercholesterolemia, unspecified; M06.9 Rheumatoid arthritis, unspecified; Z86.711 Personal history of pulmonary embolism; Z79.82 Long term (current) use of aspirin; Z79.01 Long term (current) use of anticoagulants; Z79.899 Other long term (current) drug therapy
CPT/HCPCS: 36415; 71046; 71275; 80053; 83690; 84484; 85025; 85610; 93005; 99285; A9270; Q9967; 99283

== ENCOUNTER 2020-06-26 10:18 | Emergency (ER) | payer MEDICAID ==
[2020-06-26] MEDS ORDERED: Nitroglycerin 0.4 MG Tab.SL SL PRN (10:29)
[2020-06-26] MEDS ORDERED: Sodium Chloride 0.9% 10 ML Syringe FLUSH PRN (10:29)
[2020-06-26] MEDS ORDERED: Sodium Chloride 0.9% 2.5 ML Syringe FLUSH PRN (10:29)
--- NOTE | 2020-06-26 10:33 | EDM.PDOC ---
<Kathleen Blanc E - Last Filed: 06/26/20 15:38> ED HPI GENERAL MEDICAL PROBLEM - General Chief Complaint: Chest Pain Stated Complaint: CHEST PAIN Time Seen by Provider: 06/26/20 10:23 Source of Information: Reports: Patient History Limitations: Reports: No Limitations - History of Present Illness INITIAL COMMENTS - FREE TEXT/NARRATIVE: HISTORY AND PHYSICAL: History of present illness: Patient is a 59-year-old male who presents to the emergency room with complaints of chest pain. He was seen in our emergency room on 06/21/2020 for complaints of chest tightness which he described as a tight band around his chest which had been ongoing for about a week. He was concerned that he had a pulmonary embolism as he had one approximately 2 years ago which felt similar. He did have CT chest to rule out PE, cardiac work-up was negative. He was encouraged to follow-up with his crane oiler, Dr. Tuttle at our facility. He made a follow-up appointment but is not able to get in until August. He states the pain has been persistent since his discharge from our emergency room but over the past 2 days he has had increased epigastric pain that radiates into his back. Grabs the epigastric pain as a dull, nagging and burning sensation. The epigastric pain is constant and does not improve or worsen with activity or rest. He also has had a new sharp stabbing pain to the left anterior chest which has been intermittent - this currently has resolved. Patient denies any fever, chills, headache, change in vision, syncope or near syncope. Denies any cough, abdominal pain, nausea, vomiting, diarrhea, constipation or dysuria. Has not noted any blood in urine or stool. Patient has been eating and drinking appropriately. 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 Past medical history of elevated cholesterol, hypertension and ME with stent placement 4 years ago in [facility]. He reports he was previously rimantadine, states he was placed on this medication as some of his meds did cause heartburn. Stopped taking this medication about a month ago as he was told they "stopped making it". Review of systems: As per history of present illness and below otherwise all systems reviewed and negative. Past medical history: As per history of present illness and as reviewed below otherwise noncontributory. Surgical history: As per history of present illness and as reviewed below otherwise noncontributory. Social history: See social history for further information Family history: As per history of present illness and as reviewed below otherwise noncontributory. Physical exam: General: Well-developed and well-nourished 59-year-old male. Alert and oriented. Nontoxic-appearing and in no acute distress. HEENT: Atraumatic, normocephalic, pupils equal and reactive bilaterally, negative for conjunctival pallor or scleral icterus, mucous membranes moist, TMs normal bilaterally, throat clear, neck supple, nontender, trachea midline. No drooling or trismus noted. No meningeal signs. No hot potato voice noted. Lungs: Clear to auscultation, breath sounds equal bilaterally, chest nontender. Heart: S1S2, regular rate and rhythm without overt murmur Abdomen: Soft, nondistended, nontender. Negative for masses or hepatosplenomegaly. Negative for costovertebral tenderness. Pelvis: Stable nontender. Skin: Intact, warm, dry. No lesions or rashes noted. Extremities: Atraumatic, moves all extremities per self without difficulty or deficits, negative for cords or calf pain. Neurovascular unremarkable. Neuro: Awake, alert, oriented. Cranial nerves II through XII unremarkable. Cerebellum unremarkable. Motor and sensory unremarkable throughout. Exam nonfocal. Notes: EKG shows sinus rhythm with rate of 79, no STEMI and no changes from previous EKG. Lab work is unremarkable. Patient's vital signs remained stable. He did have a GI cocktail as he is persistent that this could "just be heartburn". Pain went from a 5 out of 10 to 0 out of 10 after GI cocktail. CTA pending. We did have a difficult time establishing an IV appropriate for CTA, anesthesia was called for assistance. Patient did not have any nitro as his pain resolved (nitro held due to trying to get an IV established). Abdominal aorta shows no dissection or aneurysm. No acute abdominal or pelvic findings are noted on CT. Chest CT shows Echectic aorta. No evidence of aortic dissection. No other acute findings have been noted. Patient's vital signs have remained stable while here in the emergency room. We have discussed all of our diagnostics and reviewed findings. We were able to expidit his cardiology appointment for July 13 at 2:15pm with Dr Giang. We discussed risks versus benefits of discharge versus admission. He states he is comfortable going home and feels improved after the GI cocktail. He has not had any breakthrough pain. We discussed signs and symptoms that would prompt him to return to the emergency room. Follow-up, medication and supportive care measures were reviewed and discussed. Voices understanding and is agreeable to plan of care. Denies any further questions or concerns at this time. Diagnostics: CBC, CMP, troponin, EKG, lipase, ua, CT angio chest/abd/pelvis, repeat serial troponin Therapeutics: Nitro, GI cocktail Prescription: Omeprozole Impression: Chest pain GERD Plan: 1. Continue taking your home medications as directed. You've been presribed Omeprozole for your GERD/reflux symtpoms. Monitor your diet to prevent some of the reflux symptoms. 2. We were able to expedite your cardiology appointment for July 13 at 2:15pm with Dr Giang (crane oiler) here at [facility]. Please see Dr. Dhaliwal as you have scheduled on . 3. If your symptoms should worsen, new symptoms develop or any of the signs and symptoms we discussed should arise please return to the emergency room or call 911 (if needed). Definitive disposition and diagnosis as appropriate pending reevaluation and review of above. chest Pain Score (Numeric/FACES): 4 - Related Data Allergies Allergy/AdvReac Type Severity Reaction Status Date / Time No Known Allergies Allergy Verified 06/26/20 10:25 Home Meds: Home Meds Aspirin 81 mg PO DAILY 04/20/17 [History] Gabapentin [Neurontin] 300 mg PO BID PRN 04/20/17 [History] Morphine [MS Contin] 30 mg PO BID 04/20/17 [History] Prednisone [IJD: Prednisone] 5 mg PO DAILY 04/20/17 [History] Ranitidine HCl [Ranitidine] 300 mg PO BID 01/08/19 [History] atorvaSTATin [Lipitor] 10 mg PO DAILY 01/08/19 [History] Apixaban [Eliquis] 5 mg PO BID #60 tablet 01/09/19 [Rx] Cholecalciferol (Vitamin D3) [Vitamin D3] 500 units PO DAILY 06/08/19 [History] metHOTREXate sodium [Methotrexate] 6 tab PO WEEKLY 06/08/19 [History] Docusate Sodium [Colace] 100 mg PO BID PRN #60 cap 06/16/19 [Rx] oxyCODONE HCl/Acetaminophen [Percocet 10-325 mg Tablet] 2 tab PO Q4H PRN #60 tablet 06/16/19 [Rx] polyethylene glycoL 3350 [MiraLAX] 17 gm PO DAILY #14 packet 06/16/19 [Rx] InFLIXimab [Remicade] 1 dose IV ASDIRECTED 06/26/20 [History] Omeprazole 20 mg PO DAILY 30 Days #30 capsule. 06/26/20 [Rx] Past Medical History HEENT History: Reports: Impaired Vision, Other (See Below) Other HEENT History: reading glasses, top denture Cardiovascular History: Reports: Blood Clots/VTE/DVT, CAD, High Cholesterol, Stents Other Cardiovascular History: hx blood clot right leg Respiratory History: Reports: PE Other Respiratory History: PE in Jan from rt. leg DVT, took eloquis until 5 days ago Gastrointestinal History: Reports: Gastritis Other Gastrointestinal History: occasional heartburn Genitourinary History: Reports: Renal Calculus, Other (See Below) Other Genitourinary History: hx Bladder tumor Musculoskeletal History: Reports: Arthritis, Osteoporosis, RA Other Musculoskeletal History: chronic pain Neurological History: Reports: None Psychiatric History: Reports: None Endocrine/Metabolic History: Reports: None Hematologic History: Reports: Anticoagulation Therapy Immunologic History: Reports: None Oncologic (Cancer) History: Reports: Bladder Dermatologic History: Reports: None - Infectious Disease History Infectious Disease History: Reports: None - Past Surgical History Head Surgeries/Procedures: Reports: None HEENT Surgical History: Reports: Adenoidectomy, Oral Surgery, Tonsillectomy Cardiovascular Surgical History: Reports: None, AAA Repair, Coronary Artery Stent Respiratory Surgical History: Reports: None GI Surgical History: Reports: None Male Surgical History: Reports: None Endocrine Surgical History: Reports: None Neurological Surgical History: Reports: None Musculoskeletal Surgical History: Reports: None Oncologic Surgical History: Reports: Other (See Below) Dermatological Surgical History: Reports: Other (See Below) Social & Family History - Family History Family Medical History: Noncontributory - Tobacco Use Smoking Status *Q: Never Smoker Second Hand Smoke Exposure: No - Caffeine Use Caffeine Use: Reports: None Caffeine Use Comment: 2cups/week - Recreational Drug Use Recreational Drug Use: No - Living Situation & Occupation Living situation: Reports: Alone Occupation: Disabled ED ROS GENERAL - Review of Systems Review Of Systems: Comprehensive ROS is negative, except as noted in HPI. ED EXAM, GENERAL - Physical Exam Exam: See Below (See dictation) Departure - Departure Time of Disposition: 15:32 Disposition: Home, Self-Care 01 Clinical Impression: Chest pain Qualifiers: Chest pain type: unspecified Qualified Code(s): R07.9 - Chest pain, unspecified GERD (gastroesophageal reflux disease) Qualifiers: Esophagitis presence: without esophagitis Qualified Code(s): K21.9 - Gastro- esophageal reflux disease without esophagitis Prescriptions: Omeprazole 20 mg PO DAILY 30 Days #30 capsule.dr Instructions: Nonspecific Chest Pain, Adult, [id number] Referrals: Say Montes MD [Physician] - 07/13/20 2:15 pm (Arrive 30 minutes early with photo ID and insurance cards. Please also bring all medication bottles to appointment.) PCP,None [Primary Care Provider] - Forms: ED Department Discharge Additional Instructions: The following information is given to patients seen in the emergency department who are being discharged to home. This information is to outline your options for follow-up care. We provide all patients seen in our emergency department with a follow-up referral. The need for follow-up, as well as the timing and circumstances, are variable depending upon the specifics of your emergency department visit. If you don't have a primary care physician on staff, we will provide you with a referral. We always advise you to contact your personal physician following an emergency department visit to inform them of the circumstance of the visit and for follow-up with them and/or the need for any referrals to a consulting specialist. The emergency department will also refer you to a specialist when appropriate. This referral assures that you have the opportunity for follow-up care with a specialist. All of these measure are taken in an effort to provide you with optimal care, which includes your follow-up. Under all circumstances we always encourage you to contact your private physician who remains a resource for coordinating your care. When calling for follow-up care, please make the office aware that this follow-up is from your recent emergency room visit. If for any reason you are refused follow-up, please contact the [facility] Emergency Department at and asked to speak to the emergency department charge nurse. [facility] [address] [place] [address] [facility] [address] [place] [address] Thank you for choosing the [facility] emergency department in [place] for your medical needs today. It was a pleasure caring for you. You were seen in the emergency department for chest pain. 1. Your lab work, EKG, CT of the chest/abdomen/pelvis was within normal limits. Continue taking your home medications as directed. You've been prescribed Omeprazole for your GERD/reflux symptoms. Monitor your diet to prevent some of the reflux symptoms. 2. We were able to expedite your cardiology appointment for July 13 at 2:15pm with Dr Giang (crane oiler) here at [facility]. Please see Dr. Dhaliwal as you have scheduled on . 3. If your symptoms should worsen, new symptoms develop or any of the signs and symptoms we discussed should arise please return to the emergency room or call 911 (if needed). Sepsis Event Note (ED) - Evaluation Sepsis Screening Result: No Definite Risk <Dov Li - Last Filed: 06/27/20 07:16> ED CARDIOLOGY PROCEDURES - Additional/Other Procedure(s) Other (Free Text) Procedure(s): Study: limited [id number] cardiac ultrasound (no contrast material administered) Wig Dresser: Dov Li DO Indication: Chest pain Windows: parasternal long axis, parasternal short axis, subxiphoid Findings: normal left ventricular function, no pericardial effusion, no right ventricular dilation Impression: no evidence of decreased cardiac function, pericardial effusion, right ventricular dilation, or suggestion of pulmonary edema or infiltrate Course - Vital Signs Last Recorded V/S: Last Vital Signs Temp 36.2 C 06/26/20 10:23 Pulse 77 06/26/20 15:56 Resp 17 06/26/20 15:56 BP 117/74 06/26/20 15:56 Pulse Ox 97 06/26/20 15:56 - Orders/Labs/Meds Orders: Active Orders 24 hr Category Date Time Status Cardiac Monitoring [RC] . DIRECTED Care 06/26/20 10:29 Active EKG Documentation Completion [RC] STAT Care 06/26/20 10:26 Active Saline Lock Insert [OM.PC] Stat Oth 06/26/20 10:29 Ordered Labs: Laboratory Tests 06/26/20 06/26/20 06/26/20 Range/Units 10:32 10:32 10:32 WBC 9.47 (4.0-11.0) K/uL RBC 4.96 (4.50-5.90) M/uL Hgb 13.7 (13.0-17.0) g/dL Hct 43.3 (38.0-50.0) % MCV 87.3 (80.0-98.0) fL MCH 27.6 (27.0-32.0) pg MCHC 31.6 (31.0-37.0) g/dL RDW Std Deviation 48.0 (28.0-62.0) fl RDW Coeff of Dwain 15 (11.0-15.0) % Plt Count 222 (150-400) K/uL MPV 10.70 (7.40-12.00) fL Neut % (Auto) 53.2 (48.0-80.0) % Lymph % (Auto) 29.6 (16.0-40.0) % Chilton % (Auto) 10.8 (0.0-15.0) % Eos % (Auto) 6.1 (0.0-7.0) % Baso % (Auto) 0.3 (0.0-1.5) % Neut # (Auto) 5.0 (1.4-5.7) K/uL Lymph # (Auto) 2.8 H (0.6-2.4) K/uL Chilton # (Auto) 1.0 H (0.0-0.8) K/uL Eos # (Auto) 0.6 (0.0-0.7) K/uL Baso # (Auto) 0.0 (0.0-0.1) K/uL Nucleated RBC % 0.0 /100WBC Nucleated RBCs # 0 K/uL Sodium 139 (136-148) mmol/L Potassium 3.9 (3.5-5.1) mmol/L Chloride 101 (98-107) mmol/L Carbon Dioxide 28.1 (21.0-32.0) mmol/L BUN 12 (7.0-18.0) mg/dL Creatinine 1.2 (0.8-1.3) mg/dL Est Cr Clr Drug Dosing 79.22 mL/min Estimated GFR (MDRD) > 60.0 ml/min Glucose 82 (74-106) mg/dL Calcium 9.4 (8.5-10.1) mg/dL Total Bilirubin 0.6 (0.2-1.0) mg/dL AST 22 (15-37) IU/L ALT 25 (14-63) IU/L Alkaline Phosphatase 73 (46-116) U/L Troponin I < 0.050 (0.000-0.056) ng/mL Total Protein 8.6 H (6.4-8.2) g/dL Albumin 3.8 (3.4-5.0) g/dL Globulin 4.8 H (2.6-4.0) g/dL Albumin/Globulin Ratio 0.8 L (0.9-1.6) Lipase 58 L (73-393) U/L 07/27/20 Range/Units 14:01 WBC (4.0-11.0) K/uL RBC (4.50-5.90) M/uL Hgb (13.0-17.0) g/dL Hct (38.0-50.0) % MCV (80.0-98.0) fL MCH (27.0-32.0) pg MCHC (31.0-37.0) g/dL RDW Std Deviation (28.0-62.0) fl RDW Coeff of Dwain (11.0-15.0) % Plt Count (150-400) K/uL MPV (7.40-12.00) fL Neut % (Auto) (48.0-80.0) % Lymph % (Auto) (16.0-40.0) % Chilton % (Auto) (0.0-15.0) % Eos % (Auto) (0.0-7.0) % Baso % (Auto) (0.0-1.5) % Neut # (Auto) (1.4-5.7) K/uL Lymph # (Auto) (0.6-2.4) K/uL Chilton # (Auto) (0.0-0.8) K/uL Eos # (Auto) (0.0-0.7) K/uL Baso # (Auto) (0.0-0.1) K/uL Nucleated RBC % /100WBC Nucleated RBCs # K/uL Sodium (136-148) mmol/L Potassium (3.5-5.1) mmol/L Chloride (98-107) mmol/L Carbon Dioxide (21.0-32.0) mmol/L BUN (7.0-18.0) mg/dL Creatinine (0.8-1.3) mg/dL Est Cr Clr Drug Dosing mL/min Estimated GFR (MDRD) ml/min Glucose (74-106) mg/dL Calcium (8.5-10.1) mg/dL Total Bilirubin (0.2-1.0) mg/dL AST (15-37) IU/L ALT (14-63) IU/L Alkaline Phosphatase (46-116) U/L Troponin I < 0.050 (0.000-0.056) ng/mL Total Protein (6.4-8.2) g/dL Albumin (3.4-5.0) g/dL Globulin (2.6-4.0) g/dL Albumin/Globulin Ratio (0.9-1.6) Lipase (73-393) U/L Meds: Medications Discontinued Medications Generic Name Dose Route Start Last Admin Trade Name Freq PRN Reason Stop Dose Admin Al Hydroxide/Mg Hydroxide 15 0 ml 06/26/20 10:58 06/26/20 11:05 ml/ Metoclopramide HCl 5 mg/ PO 06/26/20 10:59 25 each Lidocaine HCl 5 ml ONETIME ONE Administration Iopamidol 100 ml 06/26/20 18:00 06/26/20 18:01 Isovue Multipack-370 (76%) IVPUSH 06/26/20 18:01 100 ml ONETIME STA Administration Nitroglycerin 0.4 mg 06/26/20 10:29 Nitrostat SL Q5M PRN Chest Pain Sodium Chloride 10 ml 06/26/20 10:29 06/26/20 11:06 Saline Flush FLUSH 10 ml ASDIRECTED PRN Administration Keep Vein Open Sodium Chloride 2.5 ml 06/26/20 10:29 06/26/20 11:06 Saline Flush FLUSH 2.5 ml ASDIRECTED PRN Administration Keep Vein Open MLP Sign Off - Signature Requirements MLP Sign Off: Yes :: Please see my separate supervisory note from the same date of service.
[2020-06-26] MEDS ORDERED: Alum Hydrox/Mag Hydrox/Simeth 15 ML, Metoclopramide 5 MG, Lidocaine 2% 5 ML PO ONE ×3 (10:58)
[2020-06-26 11:13] LABS: BLOOD UREA NITROGEN,BUN 12 mg/dL (7.0-18.0); CARBON DIOXIDE,CO2 28.1 mmol/L (21.0-32.0); CHLORIDE,CL 101 mmol/L (98-107); GLUCOSE RANDOM 82 mg/dL (74-106); POTASSIUM,K 3.9 mmol/L (3.5-5.1); SODIUM,NA 139 mmol/L (136-148)
--- NOTE | 2020-06-26 11:26 | PCM.SN.2 ---
- Free Text/Narrative Note: Patient was presented to be by the mid-level provider. I have personally independently seen and evaluated the patient at bedside and, if available, have spoken with the with the family. I agree with the history, physical, medical decision making, and plan of treatment as documented by the mid-level provider. I have performed the medical decision making for this patient, including assessing the results of all diagnostic testing and I have instructed the mid- level provider to document the results. 59-year-old male past medical history of CAD status post stenting, DVTs and pulmonary emboli on anticoagulation presenting with chest pain. Patient reports constant substernal chest pain radiating to the epigastrium for the past week. Recently seen in our emergency department in the past week and had a negative PE work-up. He underwent CT pulmonary angiography which was negative. 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 Presents to the emergency department today complaining of new, unusual chest pain pattern which was concerning to him. Reports constant chest pain for at least 7 days. Radiating to the back between the shoulder blades. Has not missed any of his anticoagulation doses. Physical Exam Vital signs reviewed. Nursing notes reviewed. Constitutional: Awake, alert, non-distressed. Head: Normocephalic, atraumatic. Eyes: EOMI, conjunctiva normal, no discharge, no scleral icterus. Ears, Nose, Throat: External ears and nose normal, moist oral mucosa. Cardiovascular: 2+ radial pulses b/l, capillary refill less than 2 seconds. Pulmonary: normal work of breathing, no accessory muscle use. Abdomen/GI: Soft, nontender, nondistended, no guarding or rigidity, no masses. Musculoskeletal: No deformities. Integumentary: Appropriate color for ethnicity, warm, dry, no pallor or jaundice, no rash. Neurologic: Alert, answering questions appropriately, normal speech, no facial droop, moving all extremities well. Psychiatric: Appropriate mood and affect, normal thought process. Equal radial pulses 2+ bilaterally, breathing comfortably on room air Twelve-lead EKG appears nonischemic, no acute changes from most recent ECG on file. Labs reassuring including 2- troponin checks, normal lipase, normal LFTs. We did pursue CT imaging of the thoracic and abdominal aorta, with no evidence of aneurysm or dissection. Patient was given a GI cocktail and his pain totally resolved and did not recur. Given 1 week of continuous chest pain, the likelihood of acute coronary syndrome is very low. He was recently ruled out for pulmonary embolism is already on anticoagulation. Imaging shows no acute findings. Given negative work-up, stable to discharge home with outpatient primary care and cardiology follow-up.
--- NOTE | 2020-06-26 13:34 | CR ---
Chest: Portable view of the chest was obtained. Comparison: Prior chest x-ray of 06/21/20. Heart size and mediastinum are within normal limits for AP technique. Lungs are clear with no acute parenchymal change. Degenerative change is noted within both shoulders. Impression: 1. Nothing acute is seen on frontal chest x-ray. Diagnostic code #1 This report was dictated in MDT
--- NOTE | 2020-06-26 15:21 | CT ---
CT chest Technique: Multiple axial sections through the chest were obtained. Study performed as a CT aortogram. Findings: Ascending aorta is slightly ectatic 3.8 cm. No aortic dissection is seen. Descending aorta measures normal at 2.3 cm. Mediastinum and hilar region show no adenopathy. No axillary adenopathy is seen. No pericardial effusion is seen. Mild dependent atelectasis is seen posteriorly within both lung bases. Small subpleural blebs are noted within both lung apices. No acute parenchymal change is seen. No pleural effusions are seen. Bone window settings were reviewed which show severe degenerative change within both shoulders. No acute osseous finding is appreciated. Impression: 1. Ectatic aorta. No evidence of aortic dissection. 3. Other nonacute findings as noted above. Diagnostic code #2 This report was dictated in MDT
--- NOTE | 2020-06-26 15:34 | CT ---
CT abdomen and pelvis Technique: Multiple axial sections were obtained from above the dome of the diaphragm inferiorly through the pubic symphysis. Intravenous contrast was utilized. No oral contrast has been given. Findings: Abdominal aorta shows no aneurysm or dissection. Celiac axis and superior mesenteric arteries are patent. Renal arteries are patent. Inferior mesenteric artery is patent. External and internal iliac arteries appear within normal limits. Common iliac arteries are also within normal limits as seen. No retroperitoneal adenopathy or mesenteric abnormalities are seen. No pelvic mass or adenopathy is appreciated. Liver contains no focal parenchymal abnormality. Adrenal glands show no nodule. Kidneys show symmetric contrast enhancement. Small cyst is noted within the mid left kidney measuring 1.2 cm. Right kidney shows several minimal cortical cysts. Pancreas appears within normal limits. Appendix is seen which is normal. No pelvic mass or adenopathy is noted. No free fluid or inflammatory change is seen. Bone window settings were reviewed which shows scattered degenerative change within the lumbar spine. No acute osseous finding is seen. Impression: 1. Abdominal aorta shows no dissection or aneurysm. 2. Other nonacute findings as described above. Diagnostic code #2 This report was dictated in MDT
[2020-06-26 16:03] VITALS: BP 117/74; PULSE 77
[2020-06-26] MEDS ORDERED: Iopamidol 755 MG/ML 500 ML Multipack Bottle IVPUSH STA (18:00)
== END 2020-06-26 15:56 | disposition home or self-care (01) ==
LOC: MW.ED 10:18
DX: K21.9 Gastro-esophageal reflux disease without esophagitis (principal); M19.90 Unspecified osteoarthritis, unspecified site; I25.10 Atherosclerotic heart disease of native coronary artery without angina pectoris; E78.00 Pure hypercholesterolemia, unspecified; Z95.5 Presence of coronary angioplasty implant and graft; Z86.711 Personal history of pulmonary embolism; Z79.82 Long term (current) use of aspirin; Z79.899 Other long term (current) drug therapy; Z79.01 Long term (current) use of anticoagulants
CPT/HCPCS: 36415; 71045; 71275; 74174; 80053; 83690; 84484; 85025; 93005; 99285; A9270; Q9967; 99283

== ENCOUNTER 2021-04-01 15:23 | Emergency (ER) | payer MEDICAID ==
--- NOTE | 2021-04-01 16:07 | EDM.PDOC ---
ED HPI GENERAL MEDICAL PROBLEM - General Chief Complaint: Gastrointestinal Problem Stated Complaint: BLOOD IN STOOL Time Seen by Provider: 04/01/21 15:25 - History of Present Illness INITIAL COMMENTS - FREE TEXT/NARRATIVE: 60-year-old male history of coronary artery disease with a stent that was placed 2 days ago discharged the hospital yesterday. He has a history of constipation and has been constipated since his procedure. He took a few stool softeners early in the day. He then had a very painful large but nonbloody nonblack bowel movement. Patient noted bright red blood on the toilet paper when he wiped and then noted a red discoloration in the bowl. Patient does have a history of some blood during constipation episodes but not this much in the past. Patient called his doctor who recommended he come in to get blood work. Patient states that he otherwise feels "great." He denies abdominal pain nausea vomiting dizziness lightheadedness chest pain or shortness breath. - Related Data Allergies Allergy/AdvReac Type Severity Reaction Status Date / Time No Known Allergies Allergy Verified 04/01/21 15:44 Home Meds: Home Meds Aspirin 81 mg PO DAILY 04/20/17 [History] Gabapentin [Neurontin] 300 mg PO BID PRN 04/20/17 [History] Morphine [MS Contin] 30 mg PO BID 04/20/17 [History] Prednisone [IJD: Prednisone] 5 mg PO DAILY 04/20/17 [History] Ranitidine HCl [Ranitidine] 300 mg PO BID 01/08/19 [History] atorvaSTATin [Lipitor] 10 mg PO DAILY 01/08/19 [History] Apixaban [Eliquis] 5 mg PO BID #60 tablet 01/09/19 [Rx] Cholecalciferol (Vitamin D3) [Vitamin D3] 500 units PO DAILY 06/08/19 [History] metHOTREXate sodium [Methotrexate] 6 tab PO WEEKLY 06/08/19 [History] Docusate Sodium [Colace] 100 mg PO BID PRN #60 cap 06/16/19 [Rx] oxyCODONE HCl/Acetaminophen [Percocet 10-325 mg Tablet] 2 tab PO Q4H PRN #60 tablet 06/16/19 [Rx] polyethylene glycoL 3350 [MiraLAX] 17 gm PO DAILY #14 packet 06/16/19 [Rx] InFLIXimab [Remicade] 1 dose IV ASDIRECTED 06/26/20 [History] Omeprazole 20 mg PO DAILY 30 Days #30 capsule. 06/26/20 [Rx] Past Medical History HEENT History: Reports: Impaired Vision, Other (See Below) Other HEENT History: reading glasses, top denture Cardiovascular History: Reports: Blood Clots/VTE/DVT, CAD, High Cholesterol, Stents Other Cardiovascular History: hx blood clot right leg Respiratory History: Reports: PE Other Respiratory History: PE in Jan from rt. leg DVT, took eloquis until 5 days ago Gastrointestinal History: Reports: Gastritis Other Gastrointestinal History: occasional heartburn Genitourinary History: Reports: Renal Calculus, Other (See Below) Other Genitourinary History: hx Bladder tumor Musculoskeletal History: Reports: Arthritis, Osteoporosis, RA Other Musculoskeletal History: chronic pain Neurological History: Reports: None Psychiatric History: Reports: None Endocrine/Metabolic History: Reports: None Hematologic History: Reports: Anticoagulation Therapy Immunologic History: Reports: None Oncologic (Cancer) History: Reports: Bladder Dermatologic History: Reports: None - Infectious Disease History Infectious Disease History: Reports: None - Past Surgical History Head Surgeries/Procedures: Reports: None HEENT Surgical History: Reports: Adenoidectomy, Oral Surgery, Tonsillectomy Cardiovascular Surgical History: Reports: None, AAA Repair, Coronary Artery S tent Respiratory Surgical History: Reports: None GI Surgical History: Reports: None Male Surgical History: Reports: None Endocrine Surgical History: Reports: None Neurological Surgical History: Reports: None Musculoskeletal Surgical History: Reports: None Oncologic Surgical History: Reports: Other (See Below) Dermatological Surgical History: Reports: Other (See Below) Social & Family History - Family History Family Medical History: No Pertinent Family History - Caffeine Use Caffeine Use: Reports: None Caffeine Use Comment: 2cups/week - Recreational Drug Use Recreational Drug Use: No - Living Situation & Occupation Living situation: Reports: Alone Occupation: Disabled ED ROS GENERAL - Review of Systems Review Of Systems: See Below Free Text/Narrative/Comment: General: No fever. Skin: No rash. Eyes: No vision problems. ENT: No sore throat. Neck: No neck stiffness. Respiratory: No shortness of breath. Cardiac: No chest pain. Gastrointestinal: Per HPI Urinary: No dysuria. Musculoskeletal: No myalgias/arthralgias. Neurologic: No headache. ED EXAM, GENERAL - Physical Exam Exam: See Below Free Text/Narrative:: General Appearance: No acute distress, appears comfortable Skin: No rash HEENT: Normocephalic/atraumatic, sclera anicteric, mucous membranes moist Neck: Normal range of motion Chest and Lungs: Bilateral breath sounds, clear to auscultation Cardiovascular: Regular rate and rhythm, no murmur Abdomen: Soft, non-tender Back: Normal Musculoskeletal: No edema or tenderness Neurologic: Awake, alert, no obvious deficits, moving all extremities Psychiatric: Appropriate, cooperative Course - Vital Signs Last Recorded V/S: Last Vital Signs Temp 97 F 04/01/21 15:38 Pulse 62 04/01/21 15:38 Resp 18 04/01/21 15:38 BP 110/79 04/01/21 15:38 Pulse Ox 94 L 04/01/21 15:38 - Orders/Labs/Meds Labs: Laboratory Tests 04/01/21 04/01/21 Range/Units 15:59 15:59 WBC 9.06 (4.0-11.0) K/uL RBC 4.93 (4.50-5.90) M/uL Hgb 14.3 (13.0-17.0) g/dL Hct 44.8 (38.0-50.0) % MCV 90.9 (80.0-98.0) fL MCH 29.0 (27.0-32.0) pg MCHC 31.9 (31.0-37.0) g/dL RDW Std Deviation 50.8 (28.0-62.0) fl RDW Coeff of Dwain 15 (11.0-15.0) % Plt Count 199 (150-400) K/uL MPV 12.30 H (7.40-12.00) fL Neut % (Auto) 62.8 (48.0-80.0) % Lymph % (Auto) 24.5 (16.0-40.0) % [place] % (Auto) 8.8 (0.0-15.0) % Eos % (Auto) 3.3 (0.0-7.0) % Baso % (Auto) 0.6 (0.0-1.5) % Neut # (Auto) 5.7 (1.4-5.7) K/uL Lymph # (Auto) 2.2 (0.6-2.4) K/uL [place] # (Auto) 0.8 (0.0-0.8) K/uL Eos # (Auto) 0.3 (0.0-0.7) K/uL Baso # (Auto) 0.1 (0.0-0.1) K/uL Nucleated RBC % 0.2 /100WBC Nucleated RBCs # 0 K/uL Sodium 142 (136-148) mmol/L Potassium 4.1 (3.5-5.1) mmol/L Chloride 108 H (98-107) mmol/L Carbon Dioxide 23.9 (21.0-32.0) mmol/L BUN 14 (7.0-18.0) mg/dL Creatinine 1.2 (0.8-1.3) mg/dL Est Cr Clr Drug Dosing 80.37 mL/min Estimated GFR (MDRD) > 60.0 ml/min Glucose 112 H (74-106) mg/dL Calcium 8.8 (8.5-10.1) mg/dL Departure - Departure Time of Disposition: 16:23 Disposition: Home, Self-Care 01 Condition: Good Clinical Impression: Rectal bleeding - Discharge Information *PRESCRIPTION DRUG MONITORING PROGRAM REVIEWED*: Not Applicable *COPY OF PRESCRIPTION DRUG MONITORING REPORT IN PATIENT ARVIN: Not Applicable Instructions: Rectal Bleeding, [id number] Referrals: Trent Dhaliwal MD [Primary Care Provider] - Forms: ED Department Discharge Additional Instructions: Your episode of bleeding was likely related to an internal hemorrhoid or other rectal mucosal irritation related to the large hard stool and constipation. This bleeding should resolve your constipation improved. These continue to take as well softener as needed please follow-up with your primary care doctor. The following information is given to patients seen in the emergency department who are being discharged to home. This information is to outline your options for follow-up care. We provide all patients seen in our emergency department with a follow-up referral. The need for follow-up, as well as the timing and circumstances, are variable depending upon the specifics of your emergency department visit. If you don't have a primary care physician on staff, we will provide you with a referral. We always advise you to contact your personal physician following an emergency department visit to inform them of the circumstance of the visit and for follow-up with them and/or the need for any referrals to a consulting specialist. The emergency department will also refer you to a specialist when appropriate. This referral assures that you have the opportunity for follow-up care with a specialist. All of these measure are taken in an effort to provide you with optimal care, which includes your follow-up. Under all circumstances we always encourage you to contact your private physician who remains a resource for coordinating your care. When calling for follow-up care, please make the office aware that this follow-up is from your recent emergency room visit. If for any reason you are refused follow-up, please contact the [facility] Emergency Department at and asked to speak to the emergency department charge nurse. Sepsis Event Note (ED) - Evaluation Sepsis Screening Result: No Definite Risk - Focused Exam Vital Signs: Vital Signs Temp Pulse Resp BP Pulse Ox 04/01/21 15:38 97 F 62 18 110/79 94 L - Assessment/Plan Assessment:: 60-year-old male presenting with lower GI bleeding likely related to hemorrhoids or anal fissure given constipation history and otherwise well appearance with lack of other symptoms and benign abdominal exam. Given history and primary doctors recommendations labs of been ordered rectal exam pending. 1620: Digital exam does not show any external hemorrhoid no palpable internal hemorrhoids no gross blood no severe pain with insertion. CBC is normal awaiting BMP. 1623: BMP with normal BUN and Cr. Given this no evidence for significant GI bleeding at this point. Patient will stable for discharge return precaution di scussed and understood.
[2021-04-01 16:21] LABS: BLOOD UREA NITROGEN,BUN 14 mg/dL (7.0-18.0); CARBON DIOXIDE,CO2 23.9 mmol/L (21.0-32.0); CHLORIDE,CL 108 mmol/L (98-107); GLUCOSE RANDOM 112 mg/dL (74-106); POTASSIUM,K 4.1 mmol/L (3.5-5.1); SODIUM,NA 142 mmol/L (136-148)
[2021-04-01 16:44] VITALS: BP 112/80; PULSE 64
== END 2021-04-01 16:42 | disposition home or self-care (01) ==
LOC: MW.ED 15:23
DX: K62.5 Hemorrhage of anus and rectum (principal); I25.10 Atherosclerotic heart disease of native coronary artery without angina pectoris; E78.00 Pure hypercholesterolemia, unspecified; Z95.5 Presence of coronary angioplasty implant and graft; Z86.711 Personal history of pulmonary embolism; Z79.01 Long term (current) use of anticoagulants; M19.90 Unspecified osteoarthritis, unspecified site; Z79.82 Long term (current) use of aspirin; Z79.899 Other long term (current) drug therapy; Z86.718 Personal history of other venous thrombosis and embolism
CPT/HCPCS: 36415; 80048; 85025; 99283

== ENCOUNTER 2021-05-21 02:16 | Emergency (ER) | payer MEDICAID ==
--- NOTE | 2021-05-21 02:18 | EDM.PDOC ---
ED HPI GENERAL MEDICAL PROBLEM - General Stated Complaint: CHEST PAIN Time Seen by Provider: 05/21/21 02:17 Source of Information: Reports: Patient History Limitations: Reports: No Limitations - History of Present Illness INITIAL COMMENTS - FREE TEXT/NARRATIVE: 60-year-old male past medical history CAD with stents, last cardiac cath early March with stent placed, rheumatoid arthritis, PE a few years ago on eliquis presents for left-sided chest pain starting around 10:30 PM yesterday evening. Patient states that he was at rest watching TV when he began to experience a crushing sensation to the left anterior chest. There is mild radiation on the left arm. He tried taking a nitroglycerin which did not alleviate the pain. He does endorse mild shortness of breath. He denies any lower extremity pain or swelling. He states that he has a history of GERD and that he has difficulty differentiating cardiac chest pain from GERD. He notes compliance with his cardiac medications. Left Chest Pain Score (Numeric/FACES): 6 - Related Data Allergies Allergy/AdvReac Type Severity Reaction Status Date / Time No Known Allergies Allergy Verified 05/21/21 02:19 Home Meds: Home Meds Aspirin 81 mg PO DAILY 04/20/17 [History] Gabapentin [Neurontin] 300 mg PO BID PRN 04/20/17 [History] Morphine [MS Contin] 30 mg PO BID 04/20/17 [History] Prednisone [IJD: Prednisone] 5 mg PO DAILY 04/20/17 [History] Ranitidine HCl [Ranitidine] 300 mg PO BID 01/08/19 [History] atorvaSTATin [Lipitor] 10 mg PO DAILY 01/08/19 [History] Apixaban [Eliquis] 5 mg PO BID #60 tablet 01/09/19 [Rx] Cholecalciferol (Vitamin D3) [Vitamin D3] 500 units PO DAILY 06/08/19 [History] metHOTREXate sodium [Methotrexate] 6 tab PO WEEKLY 06/08/19 [History] Docusate Sodium [Colace] 100 mg PO BID PRN #60 cap 06/16/19 [Rx] oxyCODONE HCl/Acetaminophen [Percocet 10-325 mg Tablet] 2 tab PO Q4H PRN #60 tablet 06/16/19 [Rx] polyethylene glycoL 3350 [MiraLAX] 17 gm PO DAILY #14 packet 06/16/19 [Rx] InFLIXimab [Remicade] 1 dose IV ASDIRECTED 06/26/20 [History] Omeprazole 20 mg PO DAILY 30 Days #30 capsule. 06/26/20 [Rx] Past Medical History HEENT History: Reports: Impaired Vision, Other (See Below) Other HEENT History: reading glasses, top denture Cardiovascular History: Reports: Blood Clots/VTE/DVT, CAD, High Cholesterol, Stents Other Cardiovascular History: hx blood clot right leg Respiratory History: Reports: PE Other Respiratory History: PE in Jan from rt. leg DVT, took eloquis until 5 days ago Gastrointestinal History: Reports: Gastritis Other Gastrointestinal History: occasional heartburn Genitourinary History: Reports: Renal Calculus, Other (See Below) Other Genitourinary History: hx Bladder tumor Musculoskeletal History: Reports: Arthritis, Osteoporosis, RA Other Musculoskeletal History: chronic pain Neurological History: Reports: None Psychiatric History: Reports: None Endocrine/Metabolic History: Reports: None Hematologic History: Reports: Anticoagulation Therapy Immunologic History: Reports: None Oncologic (Cancer) History: Reports: Bladder Dermatologic History: Reports: None - Infectious Disease History Infectious Disease History: Reports: None - Past Surgical History Head Surgeries/Procedures: Reports: None HEENT Surgical History: Reports: Adenoidectomy, Oral Surgery, Tonsillectomy Cardiovascular Surgical History: Reports: None, AAA Repair, Coronary Artery Stent Respiratory Surgical History: Reports: None GI Surgical History: Reports: None Male Surgical History: Reports: None Endocrine Surgical History: Reports: None Neurological Surgical History: Reports: None Musculoskeletal Surgical History: Reports: None Oncologic Surgical History: Reports: Other (See Below) Dermatological Surgical History: Reports: Other (See Below) Social & Family History - Family History Family Medical History: No Pertinent Family History - Caffeine Use Caffeine Use: Reports: None Caffeine Use Comment: 2cups/week - Living Situation & Occupation Living situation: Reports: Alone Occupation: Disabled ED ROS GENERAL - Review of Systems Review Of Systems: Comprehensive ROS is negative, except as noted in HPI. ED EXAM, GENERAL - Physical Exam Exam: See Below Exam Limited By: No Limitations General Appearance: Alert, WD/WN, No Apparent Distress Ears: Hearing Grossly Normal Throat/Mouth: Normal Voice, No Airway Compromise Head: Atraumatic, Normocephalic Neck: Normal Inspection Respiratory/Chest: No Respiratory Distress, Lungs Clear, Normal Breath Sounds, No Accessory Muscle Use Cardiovascular: Normal Peripheral Pulses, Regular Rate, Rhythm, No Edema GI/Abdominal: Soft, Non-Tender Extremities: Normal Inspection Neurological: Alert, Normal Gait Psychiatric: Normal Affect, Normal Mood Skin Exam: Warm, Dry, Intact, Normal Color #1 Interpretation EKG Date: 05/21/21 Time: 02:19 Rhythm: NSR Rate (Beats/Min): 47 [place]: Normal P-Wave: Present QRS: Normal ST-T: Normal QT: Normal IN/PQ Interval: 148 EKG Interpretation Comments: sinus bradycardia, no acute ischemic changes Course - Vital Signs Last Recorded V/S: Last Vital Signs Temp 97.8 F 05/21/21 02:19 Pulse 50 L 05/21/21 03:43 Resp 17 05/21/21 03:43 BP 138/84 05/21/21 03:43 Pulse Ox 98 05/21/21 03:43 - Orders/Labs/Meds Orders: Active Orders 24 hr Category Date Time Status Cardiac Monitoring [RC] . DIRECTED Care 05/21/21 02:25 Active EKG Documentation Completion [RC] STAT Care 05/21/21 02:25 Active Pulse Oximetry [RC] ASDIRECTED Care 05/21/21 02:25 Active Sodium Chloride 0.9% [Saline Flush] Med 05/21/21 02:25 Active 10 ml FLUSH ASDIRECTED PRN Sodium Chloride 0.9% [Saline Flush] Med 05/21/21 02:25 Active 2.5 ml FLUSH ASDIRECTED PRN Saline Lock Insert [OM.PC] Stat Oth 05/21/21 02:25 Ordered Medication Orders Sodium Chloride (Sodium Chloride 0.9% 10 Ml Syringe) 10 ml FLUSH ASDIRECTED PRN PRN Reason: Keep Vein Open Last Admin: 05/21/21 02:33 Dose: 10 ml Documented by: WILLIAN Sodium Chloride (Sodium Chloride 0.9% 2.5 Ml Syringe) 2.5 ml FLUSH ASDIRECTED PRN PRN Reason: Keep Vein Open Last Admin: 05/21/21 02:33 Dose: 2.5 ml Documented by: WILLIAN Labs: Laboratory Tests 05/21/21 05/21/21 05/21/21 Range/Units 02:20 02:20 02:20 WBC 12.59 H (4.0-11.0) K/uL RBC 5.09 (4.50-5.90) M/uL Hgb 14.9 (13.0-17.0) g/dL Hct 46.2 (38.0-50.0) % MCV 90.8 (80.0-98.0) fL MCH 29.3 (27.0-32.0) pg MCHC 32.3 (31.0-37.0) g/dL RDW Std Deviation 50.3 (28.0-62.0) fl RDW Coeff of Dwain 15 (11.0-15.0) % Plt Count 174 (150-400) K/uL MPV 11.50 (7.40-12.00) fL Neut % (Auto) 40.4 L (48.0-80.0) % Lymph % (Auto) 43.6 H (16.0-40.0) % [place] % (Auto) 10.5 (0.0-15.0) % Eos % (Auto) 5.0 (0.0-7.0) % Baso % (Auto) 0.5 (0.0-1.5) % Neut # (Auto) 5.1 (1.4-5.7) K/uL Lymph # (Auto) 5.5 H (0.6-2.4) K/uL [place] # (Auto) 1.3 H (0.0-0.8) K/uL Eos # (Auto) 0.6 (0.0-0.7) K/uL Baso # (Auto) 0.1 (0.0-0.1) K/uL Nucleated RBC % 0.0 /100WBC Nucleated RBCs # 0 K/uL INR 1.01 APTT 26.3 (18.6-31.3) SEC D-Dimer, Quantitative (0.0-0.50) mg/L FEU Sodium 144 (136-148) mmol/L Potassium 4.1 (3.5-5.1) mmol/L Chloride 106 (98-107) mmol/L Carbon Dioxide 29.8 (21.0-32.0) mmol/L BUN 12 (7.0-18.0) mg/dL Creatinine 1.4 H (0.8-1.3) mg/dL Est Cr Clr Drug Dosing 68.89 mL/min Estimated GFR (MDRD) 51.7 ml/min Glucose 103 (74-106) mg/dL Calcium 8.7 (8.5-10.1) mg/dL Total Bilirubin 0.3 (0.2-1.0) mg/dL AST 44 H (15-37) IU/L ALT 79 H (14-63) IU/L Alkaline Phosphatase 80 (46-116) U/L Troponin I < 0.050 (0.000-0.056) ng/mL B-Natriuretic Peptide (<100) PG/ML Total Protein 7.8 (6.4-8.2) g/dL Albumin 3.9 (3.4-5.0) g/dL Globulin 3.9 (2.6-4.0) g/dL Albumin/Globulin Ratio 1.0 (0.9-1.6) Lipase 102 (73-393) U/L 05/21/21 05/21/21 05/21/21 Range/Units 02:20 02:20 03:43 WBC (4.0-11.0) K/uL RBC (4.50-5.90) M/uL Hgb (13.0-17.0) g/dL Hct (38.0-50.0) % MCV (80.0-98.0) fL MCH (27.0-32.0) pg MCHC (31.0-37.0) g/dL RDW Std Deviation (28.0-62.0) fl RDW Coeff of Dwain (11.0-15.0) % Plt Count (150-400) K/uL MPV (7.40-12.00) fL Neut % (Auto) (48.0-80.0) % Lymph % (Auto) (16.0-40.0) % [place] % (Auto) (0.0-15.0) % Eos % (Auto) (0.0-7.0) % Baso % (Auto) (0.0-1.5) % Neut # (Auto) (1.4-5.7) K/uL Lymph # (Auto) (0.6-2.4) K/uL [place] # (Auto) (0.0-0.8) K/uL Eos # (Auto) (0.0-0.7) K/uL Baso # (Auto) (0.0-0.1) K/uL Nucleated RBC % /100WBC Nucleated RBCs # K/uL INR APTT (18.6-31.3) SEC D-Dimer, Quantitative 0.33 (0.0-0.50) mg/L FEU Sodium (136-148) mmol/L Potassium (3.5-5.1) mmol/L Chloride (98-107) mmol/L Carbon Dioxide (21.0-32.0) mmol/L BUN (7.0-18.0) mg/dL Creatinine (0.8-1.3) mg/dL Est Cr Clr Drug Dosing mL/min Estimated GFR (MDRD) ml/min Glucose (74-106) mg/dL Calcium (8.5-10.1) mg/dL Total Bilirubin (0.2-1.0) mg/dL AST (15-37) IU/L ALT (14-63) IU/L Alkaline Phosphatase (46-116) U/L Troponin I < 0.050 (0.000-0.056) ng/mL B-Natriuretic Peptide 49 (<100) PG/ML Total Protein (6.4-8.2) g/dL Albumin (3.4-5.0) g/dL Globulin (2.6-4.0) g/dL Albumin/Globulin Ratio (0.9-1.6) Lipase (73-393) U/L Meds: Medications Generic Name Dose Route Start Last Admin Trade Name Joelq PRN Reason Stop Dose Admin Sodium Chloride 10 ml 05/21/21 02:25 05/21/21 02:33 Sodium Chloride 0.9% 10 Ml Syringe FLUSH 10 ml ASDIRECTED PRN Administration Keep Vein Open Sodium Chloride 2.5 ml 05/21/21 02:25 05/21/21 02:33 Sodium Chloride 0.9% 2.5 Ml Syringe FLUSH 2.5 ml ASDIRECTED PRN Administration Keep Vein Open Discontinued Medications Generic Name Dose Route Start Last Admin Trade Name Freq PRN Reason Stop Dose Admin Aspirin 324 mg 05/21/21 02:25 05/21/21 02:32 Aspirin 81 Mg Tab.Chew PO 05/21/21 02:26 324 mg ONETIME ONE Administration Al Hydroxide/Mg Hydroxide 15 0 ml 05/21/21 02:25 05/21/21 02:33 ml/ Lidocaine HCl 5 ml PO 05/21/21 02:26 15 each ONETIME ONE Administration Famotidine 20 mg 05/21/21 02:25 05/21/21 02:32 Famotidine 20 Mg/2 Ml Sdv IVPUSH 05/21/21 02:26 20 mg ONETIME ONE Administration Morphine Sulfate 4 mg 05/21/21 03:13 05/21/21 03:45 Morphine 4 Mg/Ml Syringe IVPUSH 05/21/21 03:14 4 mg ONETIME ONE Administration - Re-Assessments/Exams Free Text/Narrative Re-Assessment/Exam: 05/21/21 02:28 We will get cardiac work-up. Will get chest x-ray. Will give aspirin. Will give Pepcid and GI cocktail. 05/21/21 03:35 Labs including D-dimer negative. Patient states he is still experiencing pain. He states his pain feels like it is in his midepigastrium radiating upwards into his chest. Will trial morphine. Will get a repeat troponin to ensure no rise and disposition patient. 05/21/21 04:20 Repeat troponin is negative. Patient does note on further history that he was scheduled to have an endoscopy prior to his abnormal stress test that led to the recent cardiac cath. Considering the way he is describing his pain I think he would benefit from endoscopy. He is already on omeprazole. We will place him on general surgery follow-up list for endoscopy. I also told him that he needs follow-up with his consulting networking engineer this week. Return precautions were discussed at length. Departure - Departure Time of Disposition: 04:21 Disposition: Home, Self-Care 01 Condition: Good Clinical Impression: Chest pain Qualifiers: Chest pain type: unspecified Qualified Code(s): R07.9 - Chest pain, unspecified - Discharge Information Instructions: Nonspecific Chest Pain, Adult Referrals: Trent Dhaliwal MD [Primary Care Provider] - Additional Instructions: You should follow-up with general surgery regarding the endoscopy. Information is provided below and you were placed on the general surgery follow-up list. I would definitely also follow-up with Dr. Andrade your consulting networking engineer. [facility] General Surgery Professional [address], [address] [place] [address] The following information is given to patients seen in the emergency department who are being discharged to home. This information is to outline your options for follow-up care. We provide all patients seen in our emergency department with a follow-up referral. The need for follow-up, as well as the timing and circumstances, are variable depending upon the specifics of your emergency department visit. If you don't have a primary care physician on staff, we will provide you with a referral. We always advise you to contact your personal physician following an emergency department visit to inform them of the circumstance of the visit and for follow-up with them and/or the need for any referrals to a consulting specialist. The emergency department will also refer you to a specialist when appropriate. This referral assures that you have the opportunity for follow-up care with a specialist. All of these measure are taken in an effort to provide you with optimal care, which includes your follow-up. Under all circumstances we always encourage you to contact your private physician who remains a resource for coordinating your care. When calling for follow-up care, please make the office aware that this follow-up is from your recent emergency room visit. If for any reason you are refused follow-up, please contact the [facility] Emergency Department at and asked to speak to the emergency department charge nurse. Please follow up with your primary care physician. If you do not have a primary care physician, see below: [facility] [address] [place] [id number] [address] [facility] - [facility] [address] [place] [id number] Sepsis Event Note (ED) - Focused Exam Vital Signs: Vital Signs Temp Pulse Resp BP Pulse Ox 05/21/21 03:43 50 L 17 138/84 98 05/21/21 02:40 58 L 17 129/75 96 05/21/21 02:19 97.8 F 58 L 19 164/84 H 95 - My Orders Last 24 Hours: My Active Orders 05/21/21 02:25 Cardiac Monitoring [RC] . DIRECTED EKG Documentation Completion [RC] STAT Pulse Oximetry [RC] ASDIRECTED Sodium Chloride 0.9% [Saline Flush] 10 ml FLUSH ASDIRECTED PRN Sodium Chloride 0.9% [Saline Flush] 2.5 ml FLUSH ASDIRECTED PRN Saline Lock Insert [OM.PC] Stat - Assessment/Plan Last 24 Hours: My Active Orders 05/21/21 02:25 Cardiac Monitoring [RC] . DIRECTED EKG Documentation Completion [RC] STAT Pulse Oximetry [RC] ASDIRECTED Sodium Chloride 0.9% [Saline Flush] 10 ml FLUSH ASDIRECTED PRN Sodium Chloride 0.9% [Saline Flush] 2.5 ml FLUSH ASDIRECTED PRN Saline Lock Insert [OM.PC] Stat
[2021-05-21] MEDS ORDERED: Aspirin 81 MG Tab.Chew PO ONE (02:25)
[2021-05-21] MEDS ORDERED: Sodium Chloride 0.9% 10 ML Syringe FLUSH PRN (02:25)
[2021-05-21] MEDS ORDERED: Famotidine 20 MG/2 ML SDV IVPUSH ONE (02:25)
[2021-05-21] MEDS ORDERED: Alum Hydrox/Mag Hydrox/Simeth 15 ML, Lidocaine 2% 5 ML PO ONE ×2 (02:25)
[2021-05-21] MEDS ORDERED: Sodium Chloride 0.9% 2.5 ML Syringe FLUSH PRN (02:25)
[2021-05-21 02:46] LABS: BLOOD UREA NITROGEN,BUN 12 mg/dL (7.0-18.0); CARBON DIOXIDE,CO2 29.8 mmol/L (21.0-32.0); CHLORIDE,CL 106 mmol/L (98-107); GLUCOSE RANDOM 103 mg/dL (74-106); LIPASE 102 U/L (73-393); POTASSIUM,K 4.1 mmol/L (3.5-5.1); SODIUM,NA 144 mmol/L (136-148)
--- NOTE | 2021-05-21 02:47 | CR ---
INDICATION: Chest pain TECHNIQUE: Portable AP view of the chest COMPARISON: AP chest radiograph 06/26/2020 FINDINGS: The lungs are clear. There is no sizable pleural effusion or pneumothorax. The cardiomediastinal silhouette is stable. Bilateral glenohumeral joint osteoarthrosis is noted. IMPRESSION: No acute intrathoracic process. Dictated by Fish Torres MD @ 05/21/2021 2:46:[address] Fish Torres @ May 21 2021 2:46AM
[2021-05-21] MEDS ORDERED: Morphine 4 MG/ML Syringe IVPUSH ONE (03:13)
[2021-05-21 04:36] VITALS: BP 122/81; PULSE 54
== END 2021-05-21 04:37 | disposition home or self-care (01) ==
LOC: MW.ED 02:16
DX: R07.9 Chest pain, unspecified (principal); I25.10 Atherosclerotic heart disease of native coronary artery without angina pectoris; E78.00 Pure hypercholesterolemia, unspecified; M19.90 Unspecified osteoarthritis, unspecified site; Z79.82 Long term (current) use of aspirin; Z79.01 Long term (current) use of anticoagulants; Z86.718 Personal history of other venous thrombosis and embolism; Z86.711 Personal history of pulmonary embolism; Z79.899 Other long term (current) drug therapy
CPT/HCPCS: 36415; 71045; 80053; 83690; 83880; 84484; 85025; 85379; 85610; 85730; 93005; 96374; 96375; 99285; A9270; J2270; J3490; 93010; 99284

== ENCOUNTER 2021-06-25 17:15 | Emergency (ER) | payer MEDICAID ==
--- NOTE | 2021-06-25 17:23 | PCM.EKG ---
#1 Interpretation EKG Date: 06/25/21 Time: 17:22 EKG Interpretation Comments: NSR rate of 53, normal axis, TWI and TW flattening anteriorly is nonspecific. No ST elevations or depressions, No STEMI criteria, not convincing for acute ischemia.
[2021-06-25] MEDS ORDERED: Sodium Chloride 0.9% 2.5 ML Syringe FLUSH PRN (17:37)
[2021-06-25] MEDS ORDERED: Sodium Chloride 0.9% 10 ML Syringe FLUSH PRN (17:37)
[2021-06-25] MEDS ORDERED: Aspirin 81 MG Tab.Chew PO ONE (17:37)
--- NOTE | 2021-06-25 18:04 | EDM.PDOC ---
ED HPI GENERAL MEDICAL PROBLEM - General Chief Complaint: General Stated Complaint: CHEST PAIN, LT ARM PAIN, RT LEG SWELLING Time Seen by Provider: 06/25/21 17:19 Source of Information: Reports: Patient History Limitations: Reports: No Limitations - History of Present Illness INITIAL COMMENTS - FREE TEXT/NARRATIVE: HISTORY AND PHYSICAL: History of present illness: Patient is a 60-year-old male, with a history of prior pulmonary embolism in 2019/DVT of his right lower extremity currently on Eliquis, coronary artery disease status post stent placement in March 2021, hyperlipidemia, hypertension, and AAA repair, who presents emergency room today with concern of left-sided chest pain radiating to his left shoulder and right lower extremity swelling when he woke up this morning at approximately 10 AM. Patient states that the chest pain is "low-grade "but states in the setting of his right lower extremity swelling he was concerned about a pulmonary embolism as he has had this prior. Patient states he is on Eliquis currently and has been taking this as prescribed. Patient states he also had a heart attack in March and has 1 stent placement and states that possibly the chest pain is similar to this as well. Patient states he was on his way to the gym and decided to come to the emergency room for further evaluation. Patient states he also has a history of rheumatoid arthritis and has "pain every day "which makes it difficult to fully understand his symptoms from day today. Patient states that he also gets swelling in relation to his rheumatoid arthritis so he is also unsure if his lower extremity swelling is due to this. Patient denies fever, chills, shortness of breath, or cough. Denies headache, neck stiff ness, change in vision, syncope, or near syncope. Denies nausea, vomiting, abdominal pain, diarrhea, constipation, or dysuria. Has not noted any blood in urine or stool. Patient has been eating and drinking appropriately. Review of systems: As per history of present illness and below otherwise all systems reviewed and negative. Past medical history: As per history of present illness and as reviewed below otherwise noncontributory. Surgical history: As per history of present illness and as reviewed below otherwise noncontributory. Social history: See social history for further information Family history: As per history of present illness and as reviewed below otherwise noncontributory. Physical exam: General: Patient is alert, oriented, and in no acute distress. Patient laying comfortably on exam table. Vitals stable and reviewed by me. HEENT: Atraumatic, normocephalic, pupils equal and reactive bilaterally, negative for conjunctival pallor or scleral icterus, mucous membranes moist, TMs normal bilaterally, throat clear, neck supple, nontender, trachea midline. No drooling or trismus noted. No meningeal signs. No hot potato voice noted. Lungs: Clear to auscultation, breath sounds equal bilaterally, chest nontender. Heart: S1S2, regular rate and rhythm without overt murmur Abdomen: Soft, nondistended, nontender. Negative for masses or hepatosplenomegaly. Negative for costovertebral tenderness. Pelvis: Stable nontender. Genitourinary: Deferred. Rectal: Deferred. Skin: Intact, warm, dry. No lesions or rashes noted. Extremities: The right lower extremity is mild edematous in comparison to the left lower extremity with full range of motion of bilateral lower extremities without pain or difficulty. Dorsalis pedis and posterior tibial pulses are grossly intact of the right lower extremity with capillary refill less than 2 seconds. Otherwise, atraumatic, negative for cords or calf pain. Neurovascular unremarkable. Neuro: Awake, alert, oriented. Cranial nerves II through XII unremarkable. Cerebellum unremarkable. Motor and sensory unremarkable throughout. Exam nonfocal. Notes: Patient is a 60-year-old male, with a history of prior pulmonary embolism/DVT, coronary artery disease status post stent, and AAA repair, presents emergency room today with concern of chest pain radiating to left arm and right lower extremity swelling since 10 AM this morning when he woke up. Upon arrival to the ED, patient is vitally stable and well-appearing on exam. He does have mild edema of the right lower extremity in comparison to the left (patient states chronically the right lower extremity is more edematous than the left due to RA) and otherwise neurovascularly intact. Will obtain cardiac work-up as well as ANG CT scan of chest and right lower extremity ultrasound. See Dr. Friedman dictation for specific EKG interpretation. Otherwise, sinus bradycardia without STEMI CBC mild derangements are unremarkable. CMP is unremarkable. Troponin negative. Lipase within normal limits. There is a significant delay in imaging due to CRL status/radiology department difficulty/delay. Upon reevaluation of patient, he remains vitally stable and states he has complete resolution of his symptoms today in the ED. Angiography of chest shows no pulmonary embolism or acute intrathoracic abnormality. Nonacute findings as detailed above. Patient is requesting to leave the ED prior to DVT lower extremity ultrasound reading from radiology and repeat troponin results. Admission for observation was offered to patient but he declines at this time. All risks versus benefits discussed with patient and expresses understanding. I did tell patient that I would call him to return to the ED in the presence of positive repeat troponin or DVT on US. Strict return precautions thoroughly discussed with patient. Discussed importance for follow-up with a primary care provider and his zig zag stitcher. Lower extremity ultrasound shows no sonographic evidence of deep venous thrombosis seen. Repeat troponin is negative. Repeat Voices understanding and is agreeable to plan of care. Denies any further questions or concerns at this time. Diagnostics: EKG, CBC, CMP, UA, Trop, Ang CT Chest, DVT LE US Therapeutics: ASA, NS, Nitro Prescription: None Impression: Atypical chest pain, resolved Right lower extremity edema, acute on chronic Plan: 1. You can alternate ibuprofen and Tylenol as directed for pain and discomfort. 2. Follow-up with a primary care provider and your zig zag stitcher as discussed. Return to the ED as needed and as discussed. Definitive disposition and diagnosis as appropriate pending reevaluation and review of above. chest Pain Score (Numeric/FACES): 4 - Related Data Allergies Allergy/AdvReac Type Severity Reaction Status Date / Time No Known Allergies Allergy Verified 05/21/21 02:19 Home Meds: Home Meds Aspirin 81 mg PO DAILY 04/20/17 [History] Gabapentin [Neurontin] 300 mg PO BID PRN 04/20/17 [History] Morphine [MS Contin] 30 mg PO BID 04/20/17 [History] Prednisone [IJD: Prednisone] 5 mg PO DAILY 04/20/17 [History] Ranitidine HCl [Ranitidine] 300 mg PO BID 01/08/19 [History] atorvaSTATin [Lipitor] 10 mg PO DAILY 01/08/19 [History] Apixaban [Eliquis] 5 mg PO BID #60 tablet 01/09/19 [Rx] Cholecalciferol (Vitamin D3) [Vitamin D3] 500 units PO DAILY 06/08/19 [History] metHOTREXate sodium [Methotrexate] 6 tab PO WEEKLY 06/08/19 [History] Docusate Sodium [Colace] 100 mg PO BID PRN #60 cap 06/16/19 [Rx] oxyCODONE HCl/Acetaminophen [Percocet 10-325 mg Tablet] 2 tab PO Q4H PRN #60 tablet 06/16/19 [Rx] polyethylene glycoL 3350 [MiraLAX] 17 gm PO DAILY #14 packet 06/16/19 [Rx] InFLIXimab [Remicade] 1 dose IV ASDIRECTED 06/26/20 [History] Omeprazole 20 mg PO DAILY 30 Days #30 capsule. 06/26/20 [Rx] Past Medical History HEENT History: Reports: Impaired Vision, Other (See Below) Other HEENT History: reading glasses, top denture Cardiovascular History: Reports: Blood Clots/VTE/DVT, CAD, High Cholesterol, Stents Other Cardiovascular History: hx blood clot right leg Respiratory History: Reports: PE Other Respiratory History: PE in Jan from rt. leg DVT, took eloquis until 5 days ago Gastrointestinal History: Reports: Gastritis Other Gastrointestinal History: occasional heartburn Genitourinary History: Reports: Renal Calculus, Other (See Below) Other Genitourinary History: hx Bladder tumor Musculoskeletal History: Reports: Arthritis, Osteoporosis, RA Other Musculoskeletal History: chronic pain Neurological History: Reports: None Psychiatric History: Reports: None Endocrine/Metabolic History: Reports: None Hematologic History: Reports: Anticoagulation Therapy Immunologic History: Reports: None Oncologic (Cancer) History: Reports: Bladder Dermatologic History: Reports: None - Infectious Disease History Infectious Disease History: Reports: Chicken Pox, Meningitis, Scarlet Fever, Other (See Below) Other Infectious Disease History: [place] - Past Surgical History Head Surgeries/Procedures: Reports: None HEENT Surgical History: Reports: Adenoidectomy, Oral Surgery, Tonsillectomy Cardiovascular Surgical History: Reports: None, AAA Repair, Coronary Artery Stent Respiratory Surgical History: Reports: None GI Surgical History: Reports: None Male Surgical History: Reports: None Endocrine Surgical History: Reports: None Neurological Surgical History: Reports: None Musculoskeletal Surgical History: Reports: None Oncologic Surgical History: Reports: Other (See Below) Dermatological Surgical History: Reports: Other (See Below) Social & Family History - Family History Family Medical History: No Pertinent Family History - Caffeine Use Caffeine Use: Reports: Coffee, Energy Drinks Caffeine Use Comment: 2cups/week - Living Situation & Occupation Living situation: Reports: Alone Occupation: Disabled ED ROS GENERAL - Review of Systems Review Of Systems: Comprehensive ROS is negative, except as noted in HPI. ED EXAM, GENERAL - Physical Exam Exam: See Below (see dictation) Course - Vital Signs Last Recorded V/S: Last Vital Signs Temp 98.4 F 06/25/21 22:00 Pulse 74 06/25/21 22:00 Resp 16 06/25/21 22:00 BP 128/72 06/25/21 22:00 Pulse Ox 97 06/25/21 22:00 - Orders/Labs/Meds Orders: Active Orders 24 hr Category Date Time Status Cardiac Monitoring [RC] . DIRECTED Care 06/25/21 17:37 Active EKG Documentation Completion [RC] STAT Care 06/25/21 17:37 Active Sodium Chloride 0.9% [Saline Flush] Med 06/25/21 17:37 Active 10 ml FLUSH ASDIRECTED PRN Sodium Chloride 0.9% [Saline Flush] Med 06/25/21 17:37 Active 2.5 ml FLUSH ASDIRECTED PRN Saline Lock Insert [OM.PC] Stat Oth 06/25/21 17:37 Ordered Medication Orders Sodium Chloride (Sodium Chloride 0.9% 10 Ml Syringe) 10 ml FLUSH ASDIRECTED PRN PRN Reason: Keep Vein Open Last Admin: 06/25/21 17:50 Dose: 10 ml Documented by: JAMIE Sodium Chloride (Sodium Chloride 0.9% 2.5 Ml Syringe) 2.5 ml FLUSH ASDIRECTED PRN PRN Reason: Keep Vein Open Last Admin: 06/25/21 17:50 Dose: 2.5 ml Documented by: JAMIE Labs: Laboratory Tests 06/25/21 06/25/21 06/25/21 Range/Units 17:40 17:40 22:37 WBC 10.59 (4.0-11.0) K/uL RBC 4.61 (4.50-5.90) M/uL Hgb 13.5 (13.0-17.0) g/dL Hct 41.2 (38.0-50.0) % MCV 89.4 (80.0-98.0) fL MCH 29.3 (27.0-32.0) pg MCHC 32.8 (31.0-37.0) g/dL RDW Std Deviation 50.7 (28.0-62.0) fl RDW Coeff of Dwain 16 H (11.0-15.0) % Plt Count 183 (150-400) K/uL MPV 12.40 H (7.40-12.00) fL Neut % (Auto) 52.7 (48.0-80.0) % Lymph % (Auto) 26.6 (16.0-40.0) % [place] % (Auto) 12.8 (0.0-15.0) % Eos % (Auto) 7.5 H (0.0-7.0) % Baso % (Auto) 0.4 (0.0-1.5) % Neut # (Auto) 5.6 (1.4-5.7) K/uL Lymph # (Auto) 2.8 H (0.6-2.4) K/uL [place] # (Auto) 1.4 H (0.0-0.8) K/uL Eos # (Auto) 0.8 H (0.0-0.7) K/uL Baso # (Auto) 0.0 (0.0-0.1) K/uL Nucleated RBC % 0.0 /100WBC Nucleated RBCs # 0 K/uL Sodium 142 (136-148) mmol/L Potassium 3.9 (3.5-5.1) mmol/L Chloride 106 (98-107) mmol/L Carbon Dioxide 26.5 (21.0-32.0) mmol/L BUN 17 (7.0-18.0) mg/dL Creatinine 1.3 (0.8-1.3) mg/dL Est Cr Clr Drug Dosing 82.96 mL/min Estimated GFR (MDRD) 56.3 ml/min Glucose 106 (74-106) mg/dL Calcium 8.9 (8.5-10.1) mg/dL Total Bilirubin 0.4 (0.2-1.0) mg/dL AST 21 (15-37) IU/L ALT 35 (14-63) IU/L Alkaline Phosphatase 59 (46-116) U/L Troponin I < 0.050 < 0.050 (0.000-0.056) ng/mL Total Protein 6.7 (6.4-8.2) g/dL Albumin 3.7 (3.4-5.0) g/dL Globulin 3.0 (2.6-4.0) g/dL Albumin/Globulin Ratio 1.2 (0.9-1.6) Lipase 92 (73-393) U/L Meds: Medications Generic Name Dose Route Start Last Admin Trade Name Freq PRN Reason Stop Dose Admin Sodium Chloride 10 ml 06/25/21 17:37 06/25/21 17:50 Sodium Chloride 0.9% 10 Ml Syringe FLUSH 10 ml ASDIRECTED PRN Administration Keep Vein Open Sodium Chloride 2.5 ml 06/25/21 17:37 06/25/21 17:50 Sodium Chloride 0.9% 2.5 Ml Syringe FLUSH 2.5 ml ASDIRECTED PRN Administration Keep Vein Open Discontinued Medications Generic Name Dose Route Start Last Admin Trade Name Freq PRN Reason Stop Dose Admin Aspirin 324 mg 06/25/21 17:37 06/25/21 17:50 Aspirin 81 Mg Tab.Chew PO 06/25/21 17:38 324 mg ONETIME ONE Administration Iopamidol 100 ml 06/25/21 20:50 06/25/21 20:51 Iopamidol 755 Mg/Ml 100 Ml Bottle IVPUSH 06/25/21 20:51 100 ml ONETIME ONE Administration Nitroglycerin 0.4 mg 06/25/21 18:06 06/25/21 18:21 Nitroglycerin 0.4 Mg Tab.Sl SL 06/25/21 18:07 0.4 mg NOW STA Administration Departure - Departure Time of Disposition: 22:42 Disposition: Home, Self-Care 01 Clinical Impression: Atypical chest pain, Lower extremity edema - Discharge Information Instructions: Nonspecific Chest Pain, Adult, [id number] Referrals: Trent Dhaliwal MD [Primary Care Provider] - Forms: ED Department Discharge Additional Instructions: The following information is given to patients seen in the emergency department who are being discharged to home. This information is to outline your options for follow-up care. We provide all patients seen in our emergency department with a follow-up referral. The need for follow-up, as well as the timing and circumstances, are variable depending upon the specifics of your emergency department visit. If you don't have a primary care physician on staff, we will provide you with a referral. We always advise you to contact your personal physician following an emergency department visit to inform them of the circumstance of the visit and for follow-up with them and/or the need for any referrals to a consulting specialist. The emergency department will also refer you to a specialist when appropriate. This referral assures that you have the opportunity for follow-up care with a specialist. All of these measure are taken in an effort to provide you with optimal care, which includes your follow-up. Under all circumstances we always encourage you to contact your private physician who remains a resource for coordinating your care. When calling for follow-up care, please make the office aware that this follow-up is from your recent emergency room visit. If for any reason you are refused follow-up, please contact the [facility] Emergency Department at and asked to speak to the emergency department charge nurse. [facility], cardiology [address] [place] [id number] [place] [id number] 1. You can alternate ibuprofen and Tylenol as directed for pain and discomfort. 2. Follow-up with a primary care provider and your zig zag stitcher as discussed. Return to the ED as needed and as discussed. Sepsis Event Note (ED) - Evaluation Sepsis Screening Result: No Definite Risk - Focused Exam Vital Signs: Vital Signs Temp Pulse Resp BP BP Pulse Ox 06/25/21 22:00 98.4 F 74 16 128/72 97 06/25/21 21:00 84 20 115/78 97 06/25/21 20:02 82 18 128/80 97 06/25/21 19:00 58 L 18 118/66 98 06/25/21 18:32 84 18 115/67 97 06/25/21 18:21 166/73 H 06/25/21 18:15 82 18 166/73 H 98 06/25/21 17:22 97.0 F 56 L 18 151/73 H 94 L - My Orders Last 24 Hours: My Active Orders 06/25/21 17:37 Cardiac Monitoring [RC] . DIRECTED EKG Documentation Completion [RC] STAT Sodium Chloride 0.9% [Saline Flush] 10 ml FLUSH ASDIRECTED PRN Sodium Chloride 0.9% [Saline Flush] 2.5 ml FLUSH ASDIRECTED PRN Saline Lock Insert [OM.PC] Stat - Assessment/Plan Last 24 Hours: My Active Orders 06/25/21 17:37 Cardiac Monitoring [RC] . DIRECTED EKG Documentation Completion [RC] STAT Sodium Chloride 0.9% [Saline Flush] 10 ml FLUSH ASDIRECTED PRN Sodium Chloride 0.9% [Saline Flush] 2.5 ml FLUSH ASDIRECTED PRN Saline Lock Insert [OM.PC] Stat
[2021-06-25] MEDS ORDERED: Nitroglycerin 0.4 MG Tab.SL SL STA (18:06)
[2021-06-25 18:42] LABS: BLOOD UREA NITROGEN,BUN 17 mg/dL (7.0-18.0); CARBON DIOXIDE,CO2 26.5 mmol/L (21.0-32.0); CHLORIDE,CL 106 mmol/L (98-107); GLUCOSE RANDOM 106 mg/dL (74-106); LIPASE 92 U/L (73-393); POTASSIUM,K 3.9 mmol/L (3.5-5.1); SODIUM,NA 142 mmol/L (136-148)
--- NOTE | 2021-06-25 18:45 | PCM.SN.2 ---
- Free Text/Narrative Note: Peripheral IV Insertion: Consent obtained and procedural pause performed. Arm was cleansed with chlorhexidine. US was used to identify an appropriate vein in the left upper arm just proximal and medial to the AC and a long 18gz catheter was inserted into the vein under dynamic ultrasound guidance. The IV was secured in the usual fashion and meka and flushed well. The patient tolerated the procedure well with no complications. Luis Friedman MD
[2021-06-25] MEDS ORDERED: Iopamidol 755 Mg/ML 100 ML Bottle IVPUSH ONE (20:50)
--- NOTE | 2021-06-25 22:23 | CT ---
For Patients: As a result of the Century Cures Act, medical imaging exams and procedure reports are released immediately into your electronic medical record. You may view this report before your referring provider. If you have questions, please contact your health care provider. INDICATION: Chest pain. Shortness of breath. CT CHEST WITH CONTRAST TECHNIQUE: Multidetector CT imaging was performed through the chest following intravenous contrast administration using 100 mL Isovue 370. Coronal and sagittal reconstructions were generated. COMPARISON: 06/21/[address] FINDINGS: Lungs and airways: Shallow inspiration with mild dependent and basilar lung atelectasis bilaterally. No definite acute pulmonary consolidation. Scattered small foci of parenchymal scarring greatest in the lung apices, unchanged from before. Scattered stable mild subpleural fibrosis and paraseptal emphysema. Central airways are patent. Pleura and pleural spaces: No pleural effusions or pneumothorax. Heart and mediastinum: Normal heart size. No significant pericardial effusion. No pathologically enlarged mediastinal lymph nodes. Vascular structures: No filling defects in the pulmonary arterial tree to suggest pulmonary emboli. Normal caliber thoracic aorta. Moderate coronary artery calcifications. Chest wall and axillae: No mass or axillary lymphadenopathy. Osseous structures: Minor spinal degenerative changes. Bilateral shoulder degenerative changes, incompletely imaged. Upper abdomen: Unremarkable. IMPRESSION: 1. No pulmonary emboli or other acute intrathoracic abnormality identified. 2. Nonacute findings as detailed above. JAISON REECE MD [facility] Dictated by Bhavesh Reece MD @ 06/25/2021 10:20:57 PM Please note that all CT scans at this facility use dose modulation, iterative reconstruction, and/or weight-based dosing when appropriate to reduce radiation dose to as low as reasonably achievable. Dictated by: Bhavesh Reece MD @ 06/25/2021 22:21:49 (Electronically Signed)
--- NOTE | 2021-06-25 22:40 | US ---
For Patients: As a result of the Century Cures Act, medical imaging exams and procedure reports are released immediately into your electronic medical record. You may view this report before your referring provider. If you have questions, please contact your health care provider. INDICATION: Right lower leg swelling with deep venous thrombosis history TECHNIQUE: Ultrasound venous duplex right lower extremity. [place]-scale, color Doppler, and spectral Doppler imaging were performed with compression and augmentation. COMPARISON: None FINDINGS: Deep veins: The right common femoral, femoral, popliteal, and visualized calf veins are fully compressible, demonstrate normal color flow, and normal response to mechanical augmentation. The Duplex Doppler waveforms are normal in appearance. The visualized contralateral left common femoral vein is patent. Superficial veins: The visualized greater saphenous and superficial veins of the leg and calf are unremarkable. Soft tissue: No masses or cysts are identified. No adenopathy is seen. IMPRESSION: 1. No sonographic evidence of acute deep venous thrombosis seen. Dictated by: Eduar Modi MD @ 06/25/2021 22:38:03 (Electronically Signed)
[2021-06-26 01:10] VITALS: BP 144/99; PULSE 56
== END 2021-06-25 22:55 | disposition home or self-care (01) ==
LOC: MW.ED 17:15
DX: R07.89 Other chest pain (principal); R60.0 Localized edema; I25.10 Atherosclerotic heart disease of native coronary artery without angina pectoris; E78.00 Pure hypercholesterolemia, unspecified; M06.9 Rheumatoid arthritis, unspecified; Z86.711 Personal history of pulmonary embolism; Z95.5 Presence of coronary angioplasty implant and graft; Z79.82 Long term (current) use of aspirin; Z79.01 Long term (current) use of anticoagulants; Z79.899 Other long term (current) drug therapy
CPT/HCPCS: 36415; 71275; 80053; 83690; 84484; 85025; 93005; 93971; 99285; A9270; Q9967

== ENCOUNTER 2021-09-27 22:10 | Emergency (ER) | payer MEDICAID ==
[2021-09-27] MEDS ORDERED: Aspirin 81 MG Tab.Chew PO ONE (22:19)
--- NOTE | 2021-09-27 22:21 | PCM.EKG ---
#1 Interpretation EKG Date: 09/27/21 Time: 10:12 Rhythm: NSR Rate (Beats/Min): 56 [place]: Normal P-Wave: Present QRS: Normal ST-T: Normal QT: Normal Comparison: No Change (06/25/21) EKG Interpretation Comments: Sinus Rhythm
[2021-09-27 23:12] LABS: BLOOD UREA NITROGEN,BUN 13 mg/dL (7.0-18.0); CARBON DIOXIDE,CO2 25.7 mmol/L (21.0-32.0); CHLORIDE,CL 102 mmol/L (98-107); GLUCOSE RANDOM 119 mg/dL (74-106); POTASSIUM,K 4.2 mmol/L (3.5-5.1); SODIUM,NA 138 mmol/L (136-148)
[2021-09-27] MEDS ORDERED: Iopamidol 755 MG/ML 500 ML Multipack Bottle IVPUSH STA (23:41)
--- NOTE | 2021-09-28 00:18 | CR ---
INDICATION: Chest pain TECHNIQUE: Portable AP view of the chest COMPARISON: AP chest radiograph 05/21/2021 FINDINGS: The lungs are clear. There is no sizable pleural effusion or pneumothorax. The cardiomediastinal silhouette is normal. Degenerative changes are noted in the glenohumeral joint. IMPRESSION: No acute intrathoracic process. Dictated by Fish Torres MD @ 09/28/2021 12:18:01 AM (Electronically Signed)
--- NOTE | 2021-09-28 01:40 | CT ---
INDICATION: Hypoxia, history of PE TECHNIQUE: Contrast enhanced axial CT imaging through the chest, optimized for assessment of the pulmonary arterial tree. 100 mL Isovue 370 contrast agent was administered intravenously. Sagittal and coronal reconstructions are provided. COMPARISON: CTA chest PE protocol 06/25/2021 FINDINGS: There is adequate opacification of the pulmonary arterial tree without evidence of thromboembolism. The main pulmonary artery is nonenlarged. The heart is normal in size. There is no pericardial effusion. Coronary artery calcification is noted. The thoracic aorta is normal in caliber. There is no mediastinal lymphadenopathy. There is mild bibasilar atelectasis. The lungs are otherwise clear. There is no pleural effusion or pneumothorax. The thoracic osseous structures are unremarkable. No significant abnormality is demonstrated in the visualized upper abdomen. IMPRESSION: No evidence of pulmonary thromboembolism. Mild bibasilar atelectasis. Please note that all CT scans at this facility use dose modulation, iterative reconstruction, and/or weight-based dosing when appropriate to reduce radiation dose to as low as reasonably achievable. Dictated by Fish Torres MD @ 09/28/2021 1:39:34 AM (Electronically Signed)
--- NOTE | 2021-09-28 01:54 | EDM.PDOC ---
ED HPI GENERAL MEDICAL PROBLEM - General Chief Complaint: Chest Pain Stated Complaint: CHEST PAINS Time Seen by Provider: 09/27/21 22:21 - History of Present Illness INITIAL COMMENTS - FREE TEXT/NARRATIVE: CHIEF COMPLAINT(S): Chest pain HISTORY OF PRESENT ILLNESS: This is a 61-year-old man with a past medical history of CAD status post stent, prior history of DVT and PE who is on Eliquis, aspirin and Plavix who comes to the emergency department with a chief complaint of chest pain. The patient states that for approximately 3 to 4 hours now he is experiencing right-sided chest pain which radiates across his chest which he rates as 4-5 out of 10. He describes the pain as sharp not associated with any diaphoresis nausea or vomiting. He states that this happened before and he was concerned that he might have a clot in his lung. He denies any lower extremity edema, recent travel or recent surgery. He denies any syncope but states that he might have a little bit of shortness of breath. He denies any cough, runny nose or congestion. He denies any fever or chills. He states that the pain is exacerbated by deep breathing and by touching the right side of his chest. There are no relieving factors. He has not yet tried any pain medication. REVIEW OF SYSTEMS: Constitutional: Denies fever, chills. Eyes: Denies eye pain Ears, Nose, Mouth, & Throat: Denies earache Cardiovascular: Positive for chest pain respiratory: Positive for shortness of breath Gastrointestinal: Denies Nausea, vomiting, diarrhea, hematochezia. Genitourinary: Denies hematuria Skin:Denies a rash MSK: Denies joint pain Neurological: Denies blurred vision Psychiatric: Denies depression PAST MEDICAL HISTORY: As per history of present illness and as reviewed below otherwise noncontributory. SURGICAL HISTORY: As per history of present illness and as reviewed below otherwise noncontributory. SOCIAL HISTORY: As per history of present illness and as reviewed below otherwise noncontributory. FAMILY HISTORY: As per history of present illness and as reviewed below otherwise noncontributory. EXAMINATION OF ORGAN SYSTEMS/BODY AREAS: Constitutional: Blood pressure was 138/77, heart rate 61, respiratory rate 20 with an oxygen saturation of 95% on room air. Temperature 36.3 General: Well-appearing man who is in no acute distress Psychiatric: Appropriate mood and affect. Eyes: No scleral icterus or conjunctival erythema ENMT: Moist mucous membranes. No pharyngeal erythema Cardiovascular: Regular, rate, and rhythm. No gallops, murmurs, or rubs. Bilateral upper extremity pulses symmetric and intact. No peripheral edema. No JVD. Respiratory: Lungs clear to auscultation bilaterally. No wheezes, rales, or rhonchi. Gastrointestinal: Soft, non-tender, non-distended. Normoactive bowel sounds Genitourinary: No suprapubic tenderness Musculoskeletal: Normal range of motion. Skin: No lesions or abrasions. Neurological: Alert, GCS 15 MEDICAL DECISION MAKING AND COURSE IN THE ED WITH INTERPRETATION/REVIEW OF DIAG NOSTIC STUDIES: This is a 61-year-old man with a past medical history of CAD status post stent, DVT, PE who comes to the emergency department with acute chest pain which is atypical which is reproducible on examination. The patient's vitals are completely normal at this time. Cardiac monitoring did reveal sinus rhythm and pulse oximetry with good waveform was 93 to 95% on room air. Will obtain a cardiac work-up given his cardiac history. Given the duration of his symptoms only 1 troponin is negative. Will obtain a Covid swab. Also obtain a chest x-ray and a CT angiogram of the chest given his history of PE. We will provide the patient with aspirin and reevaluate. EKG was obtained which did not reveal any acute signs of ischemia and was unchanged from prior. Laboratory: CBC reveals a mild leukocytosis of 11.58 otherwise unremarkable. BMP is unremarkable. Magnesium is 2.5. Troponin is negative. TSH is decreased at 0.32 however free T4 is normal. Covid is negative. The radiological images were viewed by myself along with reading the report from the radiologist. Chest x-ray does not reveal any acute cardiopulmonary process. CT angiogram of the chest does not reveal any evidence of pulmonary embolism with bilateral atelectasis. No other acute finding. After labs and imaging given his atypical symptoms I do not believe this is cardiac in nature and likely musculoskeletal given that it is reproducible on examination. I did discuss symptomatic treatment at home. He was given strict return precautions. The patient was amenable discharge and had no further questions. DISPOSITION: The patient was discharged home in stable condition. The patient will follow up with primary care physician in 3 to 5 days CONDITION: Fair PROCEDURES: None FINAL IMPRESSION(S)/DIAGNOSES: 1. Acute right-sided chest pain Anton Abarca M.D. Right Upper Chest Pain Score (Numeric/FACES): 6 - Related Data Allergies Allergy/AdvReac Type Severity Reaction Status Date / Time No Known Allergies Allergy Verified 05/21/21 02:19 Home Meds: Home Meds Aspirin 81 mg PO DAILY 04/20/17 [History] Gabapentin [Neurontin] 300 mg PO BID PRN 04/20/17 [History] Morphine [MS Contin] 30 mg PO BID PRN 04/20/17 [History] Prednisone [IJD: Prednisone] 5 mg PO DAILY 04/20/17 [History] Ranitidine HCl [Ranitidine] 300 mg PO BID 01/08/19 [History] atorvaSTATin [Lipitor] 10 mg PO DAILY 01/08/19 [History] Apixaban [Eliquis] 5 mg PO BID #60 tablet 01/09/19 [Rx] Cholecalciferol (Vitamin D3) [Vitamin D3] 500 units PO DAILY 06/08/19 [History] metHOTREXate sodium [Methotrexate] 6 tab PO WEEKLY 06/08/19 [History] Docusate Sodium [Colace] 100 mg PO BID PRN #60 cap 06/16/19 [Rx] oxyCODONE HCl/Acetaminophen [Percocet 10-325 mg Tablet] 2 tab PO Q4H PRN #60 tablet 06/16/19 [Rx] polyethylene glycoL 3350 [MiraLAX] 17 gm PO DAILY #14 packet 06/16/19 [Rx] InFLIXimab [Remicade] 1 dose IV ASDIRECTED 06/26/20 [History] Clopidogrel Bisulfate [Plavix] 75 mg PO DAILY 09/27/21 [History] Omeprazole 40 mg PO DAILY 09/27/21 [History] Past Medical History HEENT History: Reports: Impaired Vision, Other (See Below) Other HEENT History: reading glasses, top denture Cardiovascular History: Reports: Blood Clots/VTE/DVT, CAD, High Cholesterol, Stents Other Cardiovascular History: hx blood clot right leg Respiratory History: Reports: PE Other Respiratory History: PE in Jan from rt. leg DVT, took eloquis until 5 days ago Gastrointestinal History: Reports: Gastritis, GERD Other Gastrointestinal History: occasional heartburn Genitourinary History: Reports: Renal Calculus, Other (See Below) Other Genitourinary History: hx Bladder tumor Musculoskeletal History: Reports: Arthritis, Osteoporosis, RA Other Musculoskeletal History: chronic pain Neurological History: Reports: None Psychiatric History: Reports: None Endocrine/Metabolic History: Reports: None Hematologic History: Reports: Anticoagulation Therapy Immunologic History: Reports: None Oncologic (Cancer) History: Reports: Bladder Dermatologic History: Reports: None - Infectious Disease History Infectious Disease History: Reports: Chicken Pox, Meningitis, Scarlet Fever, Other (See Below) Other Infectious Disease History: [place] - Past Surgical History Head Surgeries/Procedures: Reports: None HEENT Surgical History: Reports: Adenoidectomy, Oral Surgery, Tonsillectomy Cardiovascular Surgical History: Reports: Coronary Artery Stent Respiratory Surgical History: Reports: None GI Surgical History: Reports: None Male Surgical History: Reports: None Endocrine Surgical History: Reports: None Neurological Surgical History: Reports: None Musculoskeletal Surgical History: Reports: None Oncologic Surgical History: Reports: Other (See Below) Dermatological Surgical History: Reports: Other (See Below) Social & Family History - Family History Family Medical History: No Pertinent Family History - Tobacco Use Tobacco Use Status *Q: Never Tobacco User Second Hand Smoke Exposure: No - Caffeine Use Caffeine Use: Reports: Coffee, Energy Drinks Caffeine Use Comment: 2cups/week - Recreational Drug Use Recreational Drug Use: No - Living Situation & Occupation Living situation: Reports: Alone Occupation: Disabled ED ROS GENERAL - Review of Systems Review Of Systems: See Below ED EXAM, GENERAL - Physical Exam Exam: See Below Course - Vital Signs Last Recorded V/S: Last Vital Signs Temp 36.3 C 09/27/21 22:15 Pulse 55 L 09/28/21 02:05 Resp 13 09/28/21 02:05 BP 102/63 09/28/21 02:05 Pulse Ox 95 09/28/21 02:05 - Orders/Labs/Meds Labs: Laboratory Tests 09/27/21 09/27/21 09/27/21 Range/Units 22:25 22:25 22:30 WBC 11.58 H (4.0-11.0) K/uL RBC 5.03 (4.50-5.90) M/uL Hgb 15.1 (13.0-17.0) g/dL Hct 45.1 (38.0-50.0) % MCV 89.7 (80.0-98.0) fL MCH 30.0 (27.0-32.0) pg MCHC 33.5 (31.0-37.0) g/dL RDW Std Deviation 49.8 (28.0-62.0) fl RDW Coeff of Dwain 15 (11.0-15.0) % Plt Count 178 (150-400) K/uL MPV 11.40 (7.40-12.00) fL Neut % (Auto) 61.1 (48.0-80.0) % Lymph % (Auto) 25.0 (16.0-40.0) % [place] % (Auto) 10.1 (0.0-15.0) % Eos % (Auto) 3.5 (0.0-7.0) % Baso % (Auto) 0.3 (0.0-1.5) % Neut # (Auto) 7.1 H (1.4-5.7) K/uL Lymph # (Auto) 2.9 H (0.6-2.4) K/uL [place] # (Auto) 1.2 H (0.0-0.8) K/uL Eos # (Auto) 0.4 (0.0-0.7) K/uL Baso # (Auto) 0.0 (0.0-0.1) K/uL Nucleated RBC % 0.0 /100WBC Nucleated RBCs # 0 K/uL Sodium 138 (136-148) mmol/L Potassium 4.2 (3.5-5.1) mmol/L Chloride 102 (98-107) mmol/L Carbon Dioxide 25.7 (21.0-32.0) mmol/L BUN 13 (7.0-18.0) mg/dL Creatinine 1.2 (0.8-1.3) mg/dL Est Cr Clr Drug Dosing 79.37 mL/min Estimated GFR (MDRD) > 60.0 ml/min Glucose 119 H (74-106) mg/dL Calcium 8.5 (8.5-10.1) mg/dL Magnesium 2.5 H (1.8-2.4) mg/dL Troponin I < 0.050 (0.000-0.056) ng/mL Free T4 0.91 (0.76-1.46) ng/dL TSH, Ultra Sensitive 0.32 L (0.36-3.74) uIU/mL SARS-CoV-2 RNA (MARI) NEGATIVE (NEGATIVE) Meds: Medications Discontinued Medications Generic Name Dose Route Start Last Admin Trade Name Corrie PRN Reason Stop Dose Admin Aspirin 324 mg 09/27/21 22:19 09/27/21 22:36 Aspirin 81 Mg Tab.Chew PO 09/27/21 22:20 324 mg ONETIME ONE Administration Iopamidol 100 ml 09/27/21 23:41 09/27/21 23:42 Iopamidol 755 Mg/Ml 500 Ml Multipack Bottle IVPUSH 09/27/21 23:42 100 ml ONETIME STA Administration Departure - Departure Time of Disposition: 01:53 Disposition: Home, Self-Care 01 Condition: Fair Clinical Impression: Chest wall pain - Discharge Information *PRESCRIPTION DRUG MONITORING PROGRAM REVIEWED*: No *COPY OF PRESCRIPTION DRUG MONITORING REPORT IN PATIENT ARVIN: No Instructions: Chest Wall Pain, [id number] Referrals: PCP,None [Primary Care Provider] - Forms: ED Department Discharge Additional Instructions: Your evaluated today on an emergent basis. All of your work-up was negative. At this time given that it is painful when you touch it I do believe this is secondary to musculoskeletal pain. I recommend you use Tylenol and Motrin for pain relief and ice and alternate with heat 20 minutes 4 times a day. If you have any worsening chest pain, sweating, vomiting I would like you to return to the emergency department. Otherwise follow-up with your primary care physician in 3 to 5 days. Please use: Tylenol 500-1000mg every 6 hours (DO NOT TAKE MORE THAN 4000mg in 1 day) Ibuprofen 400mg every 6 hours (Take with food as it can cause ulcers, GI upset) Example schedule: 8:00 AM (Tylenol 500-1000mg) 11:00 AM (Ibuprofen 400mg) 2:00 PM (Tylenol 500-1000mg) 5:00 PM (Ibuprofen 400mg) In addition to Tylenol and Motrin you may use over the counter creams such as Voltaren Cream or Lidocaine Cream (Lidoderm) as needed 4 times a day for symptomatic relief. Ice the area 20 minutes 4 times per day [facility] [address] [place] [id number] [facility] [address] [place] [id number] The patient is informed of any results of their evaluation and diagnostic workup and all questions are answered. They are given discharge instructions and return precautions. The patient is stable for discharge. The patient states they understand and agree with the plan and that they will return if their symptoms get worse or if they have any new concerns. The following information is given to patients seen in the emergency department who are being discharged to home. This information is to outline your options for follow-up care. We provide all patients seen in our emergency department with a follow-up referral. The need for follow-up, as well as the timing and circumstances, are variable depending upon the specifics of your emergency department visit. If you don't have a primary care physician on staff, we will provide you with a referral. We always advise you to contact your personal physician following an emergency department visit to inform them of the circumstance of the visit and for follow-up with them and/or the need for any referrals to a consulting specialist. The emergency department will also refer you to a specialist when appropriate. This referral assures that you have the opportunity for follow-up care with a specialist. All of these measure are taken in an effort to provide you with optimal care, which includes your follow-up. Under all circumstances we always encourage you to contact your private physician who remains a resource for coordinating your care. When calling for follow-up care, please make the office aware that this follow-up is from your recent emergency room visit. If for any reason you are refused follow-up, please contact the [facility] Emergency Department at and asked to speak to the emergency department charge nurse. Sepsis Event Note (ED) - Evaluation Sepsis Screening Result: No Definite Risk - Focused Exam Vital Signs: Vital Signs Temp Pulse Resp BP Pulse Ox 09/28/21 02:05 55 L 13 102/63 95 09/28/21 00:59 58 L 13 96/60 95 09/27/21 22:15 36.3 C 61 20 138/77 95
[2021-09-28 02:13] VITALS: BP 102/63; PULSE 55
== END 2021-09-28 02:11 | disposition home or self-care (01) ==
LOC: MW.ED 22:10
DX: R07.89 Other chest pain (principal); I25.10 Atherosclerotic heart disease of native coronary artery without angina pectoris; E78.00 Pure hypercholesterolemia, unspecified; K21.9 Gastro-esophageal reflux disease without esophagitis; M06.9 Rheumatoid arthritis, unspecified; Z86.711 Personal history of pulmonary embolism; Z86.718 Personal history of other venous thrombosis and embolism; Z95.5 Presence of coronary angioplasty implant and graft; Z79.82 Long term (current) use of aspirin; Z79.01 Long term (current) use of anticoagulants; Z79.899 Other long term (current) drug therapy; Z20.822 Contact with and (suspected) exposure to COVID-19
CPT/HCPCS: 36415; 71045; 71275; 80048; 83735; 84439; 84443; 84484; 85025; 87635; 99285; A9270; Q9967; U0002

== ENCOUNTER 2022-09-01 05:12 | Emergency (ER) | payer MEDICAID ==
[2022-09-01 08:32] VITALS: BP 111/61; PULSE 67
== END 2022-09-01 08:32 | disposition home or self-care (01) ==
LOC: MW.ED 05:12
DX: M79.604 Pain in right leg (principal); I25.10 Atherosclerotic heart disease of native coronary artery without angina pectoris; E78.00 Pure hypercholesterolemia, unspecified; Z79.82 Long term (current) use of aspirin; Z79.899 Other long term (current) drug therapy; Z79.01 Long term (current) use of anticoagulants
CPT/HCPCS: 36415; 85379; 93971-26-RT; 93971-RT; 99283; 99284

== ENCOUNTER 2022-10-02 07:15 | Day surgery (SDC) | payer MEDICAID ==
[~2022-10-02 07:15] MED LIST changes: -Acetaminophen 1,000 MG in Premix Bag 1 BAG IV SCH; -Famotidine 20 MG/2 ML SDV IVPUSH SCH; +Lactated Ringers 1,000 ML IV SCH; -Ropivacaine 49.25 ML, Ketorolac 30 MG, EPINEPHrine 0.5 MG, cloNIDine 80 MCG in Sodium C... INJECT SCH; -Scopolamine 1.5 MG Transdermal Patch TRDERM SCH; -Tranexamic Acid 2,000 MG in Sodium Chloride 0.9% 100 ML IV ONE; -ceFAZolin 2 GM in Premix Bag 1 BAG IV SCH; -oxyCODONE 5 MG Tab PO PRN
[2022-10-02] MEDS ORDERED: Lidocaine 2% 5 ML SDV ONE (07:27)
[2022-10-02] MEDS ORDERED: Propofol 200 MG/20 ML SDV ONE ×2 (07:27→09:20)
[2022-10-02] MEDS ORDERED: fentaNYL 100 MCG/2 ML SDV ONE (07:27)
[2022-10-02 10:14] VITALS: BP 107/57; PULSE 47
== END 2022-10-02 10:30 | disposition home or self-care (01) ==
LOC: MW.SDS 07:15
PROVIDERS: ATTEND Surgery
DX: Z12.11 Encounter for screening for malignant neoplasm of colon (principal); D12.3 Benign neoplasm of transverse colon; D12.4 Benign neoplasm of descending colon; K57.30 Diverticulosis of large intestine without perforation or abscess without bleeding; I10 Essential (primary) hypertension; G89.29 Other chronic pain; I25.10 Atherosclerotic heart disease of native coronary artery without angina pectoris; K21.9 Gastro-esophageal reflux disease without esophagitis; E78.00 Pure hypercholesterolemia, unspecified; M81.0 Age-related osteoporosis without current pathological fracture; Z98.890 Other specified postprocedural states; Z79.82 Long term (current) use of aspirin; Z87.891 Personal history of nicotine dependence; Z79.899 Other long term (current) drug therapy
CPT/HCPCS: 45380; 45385; J2704; J3010; J7120; 00811

== ENCOUNTER 2022-11-05 17:24 | Emergency (ER) | payer MEDICAID ==
[2022-11-05 19:03] LABS: CARBON DIOXIDE,CO2 26.3 mmol/L (21.0-32.0); POTASSIUM,K 3.5 mmol/L (3.5-5.1)
[2022-11-05] MEDS ORDERED: Alum Hydro/Mag Hydro/Simeth XS 15 ML, Lidocaine 2% 5 ML PO ONE ×2 (19:54)
[2022-11-05 21:26] VITALS: BP 112/71; PULSE 57
== END 2022-11-05 21:25 | disposition home or self-care (01) ==
LOC: MW.ED 17:24
DX: R10.13 Epigastric pain (principal); I25.10 Atherosclerotic heart disease of native coronary artery without angina pectoris; E78.00 Pure hypercholesterolemia, unspecified; K21.9 Gastro-esophageal reflux disease without esophagitis; M06.9 Rheumatoid arthritis, unspecified; Z79.82 Long term (current) use of aspirin; Z79.01 Long term (current) use of anticoagulants; Z79.899 Other long term (current) drug therapy
CPT/HCPCS: 36415; 80053; 84484; 85025; 86850; 86900; 86901; 93005; 99285; A9270

== ENCOUNTER 2022-12-12 07:05 | Emergency (ER) | payer MEDICAID ==
[2022-12-12 08:19] LABS: CARBON DIOXIDE,CO2 25.7 mmol/L (21.0-32.0); POTASSIUM,K 3.5 mmol/L (3.5-5.1)
[2022-12-12 09:37] VITALS: BP 113/65; PULSE 62
== END 2022-12-12 09:35 | disposition home or self-care (01) ==
LOC: MW.ED 07:05
DX: J18.9 Pneumonia, unspecified organism (principal); I25.10 Atherosclerotic heart disease of native coronary artery without angina pectoris; E78.00 Pure hypercholesterolemia, unspecified; K21.9 Gastro-esophageal reflux disease without esophagitis; Z95.5 Presence of coronary angioplasty implant and graft; Z79.82 Long term (current) use of aspirin; Z79.01 Long term (current) use of anticoagulants; Z79.899 Other long term (current) drug therapy
CPT/HCPCS: 36415; 71045; 71045-26; 80048; 83880; 84484; 85025; 93005; 99285

== ENCOUNTER 2022-12-23 05:01 | Emergency (ER) | payer MEDICAID ==
[2022-12-23] MEDS ORDERED: Albuterol/Ipratropium 3.0-0.5 MG/3 ML Neb Soln NEB ONE (05:16)
[2022-12-23] MEDS ORDERED: Aspirin 81 MG Tab.Chew PO ONE (05:21)
[2022-12-23 05:50] LABS: BLOOD UREA NITROGEN,BUN 12 mg/dL (7.0-18.0); CARBON DIOXIDE,CO2 26.3 mmol/L (21.0-32.0); CHLORIDE,CL 104 mmol/L (98-107); GLUCOSE RANDOM 107 mg/dL (74-106); POTASSIUM,K 3.7 mmol/L (3.5-5.1); SODIUM,NA 142 mmol/L (136-148)
[2022-12-23 05:52] LABS: ESTIMATED GFR 68 mL/min (>60)
[2022-12-23] MEDS ORDERED: Acetaminophen 500 MG Tab PO ONE (06:01)
[2022-12-23 06:04] LABS: CORONAVIRUS COVID-19 NAA NEGATIVE (NEGATIVE); INFLUENZA A NAA NEGATIVE (NEGATIVE); INFLUENZA B NAA NEGATIVE (NEGATIVE)
[2022-12-23 08:02] VITALS: BP 130/79; PULSE 61
== END 2022-12-23 08:02 | disposition home or self-care (01) ==
LOC: MW.ED 05:01
DX: R07.9 Chest pain, unspecified (principal); I25.10 Atherosclerotic heart disease of native coronary artery without angina pectoris; E78.00 Pure hypercholesterolemia, unspecified; Z79.82 Long term (current) use of aspirin; Z79.899 Other long term (current) drug therapy; Z79.01 Long term (current) use of anticoagulants; Z20.822 Contact with and (suspected) exposure to COVID-19
CPT/HCPCS: 0240U; 36415; 71045; 80053; 83880; 84484; 85025; 85379; 85610; 85730; 86140; 93005; 94640; 99285; A9270; J7620-GY

== ENCOUNTER 2023-04-16 01:06 | Emergency (ER) | payer MEDICAID ==
[2023-04-16] MEDS ORDERED: Sodium Chloride 0.9% 2.5 ML Syringe FLUSH PRN (01:24)
[2023-04-16] MEDS ORDERED: Aspirin 81 MG Tab.Chew PO ONE (01:24)
[2023-04-16] MEDS ORDERED: Sodium Chloride 0.9% 10 ML Syringe FLUSH PRN (01:24)
[2023-04-16 01:30] LABS: BASOPHILS PERCENT AUTO 0.4 % (0.0-1.5); EOSINOPHILS ABSOLUTE AUTO 0.1 K/uL (0.0-0.7); EOSINOPHILS PERCENT AUTO 0.6 % (0.0-7.0); HEMATOCRIT 43.6 % (38.0-50.0); HEMOGLOBIN 14.8 g/dL (13.0-17.0); LYMPHOCYTES ABSOLUTE AUTO 3.5 K/uL (0.6-2.4); MEAN CORPUSCULAR HEMOGLOBIN 33.7 pg (27.0-32.0); MEAN CORPUSCULAR HGB CONC 33.9 g/dL (31.0-37.0); MEAN CORPUSCULAR VOLUME 99.3 fL (80.0-98.0); MONOCYTES ABSOLUTE AUTO 0.8 K/uL (0.0-0.8); MONOCYTES PERCENT AUTO 9.5 % (0.0-15.0); NEUTROPHILS ABSOLUTE AUTO 4.1 K/uL (1.4-5.7); NEUTROPHILS PERCENT AUTO 48.5 % (48.0-80.0); NRBC ABSOLUTE 0 K/uL; PLATELET COUNT,PLT 172 K/uL (150-400); RED BLOOD CELL COUNT 4.39 M/uL (4.50-5.90); WHITE BLOOD CELL COUNT,WBC 8.44 K/uL (4.0-11.0)
[2023-04-16] MEDS: Nitroglycerin 0.4 MG Tab.SL SL PRN ×2 (01:33→01:58)
[2023-04-16 01:37] LABS: INR 0.98 (0.86-1.11)
[2023-04-16 01:50] LABS: A/G RATIO 1.2 (0.9-1.6); ALANINE AMINOTRANSFERASE,ALT 44 IU/L (14-63); ALBUMIN 3.6 g/dL (3.4-5.0); ALKALINE PHOSPHATASE 45 U/L (46-116); ASPARTATE AMNIOTRANSFERASE,AST 20 IU/L (15-37); BILIRUBIN TOTAL 0.5 mg/dL (0.2-1.0); BLOOD UREA NITROGEN,BUN 14 mg/dL (7.0-18.0); CALCIUM 8.4 mg/dL (8.5-10.1); CARBON DIOXIDE,CO2 25.9 mmol/L (21.0-32.0); CHLORIDE,CL 107 mmol/L (98-107); EST CRCL DRUG DOSING (CG) 94.03 mL/min; GLUCOSE RANDOM 90 mg/dL (74-106); POTASSIUM,K 3.6 mmol/L (3.5-5.1); PROTEIN TOTAL,TP 6.5 g/dL (6.4-8.2); SODIUM,NA 144 mmol/L (136-148)
[2023-04-16 01:52] LABS: ESTIMATED GFR 85 mL/min (>60); ETHANOL BLOOD MEDICAL < 3.0 mg/dL
[2023-04-16] MEDS ORDERED: Morphine 4 MG/ML Syringe IVPUSH ONE (02:11)
[2023-04-16 02:27] VITALS: PULSE 61
[2023-04-16 06:19] VITALS: BP 101/67
== END 2023-04-16 03:56 | disposition home or self-care (01) ==
LOC: MW.ED 01:06
DX: R07.2 Precordial pain (principal); I25.10 Atherosclerotic heart disease of native coronary artery without angina pectoris; E78.00 Pure hypercholesterolemia, unspecified; K21.9 Gastro-esophageal reflux disease without esophagitis; M06.9 Rheumatoid arthritis, unspecified; Z86.711 Personal history of pulmonary embolism; Z79.01 Long term (current) use of anticoagulants; Z79.82 Long term (current) use of aspirin; Z79.899 Other long term (current) drug therapy
CPT/HCPCS: 36415; 71045; 80053; 80307; 84484; 85025; 85610; 93005; 96374; 99285; A9270; J2270; J3490

== ENCOUNTER 2023-10-30 04:07 | Emergency (ER) | payer MEDICAID ==
[2023-10-30] MEDS ORDERED: Sodium Chloride 0.9% 10 ML Syringe FLUSH PRN (04:30)
[2023-10-30] MEDS ORDERED: Sodium Chloride 0.9% 2.5 ML Syringe FLUSH PRN (04:30)
[2023-10-30] MEDS ORDERED: Aluminum Hydroxide/Magnesium Hydroxide/Simethicone XS Susp 30 ML Cup PO ONE (04:31)
[2023-10-30 05:03] LABS: BASOPHILS ABSOLUTE AUTO 0.03 K/uL (0.00-0.20); BASOPHILS PERCENT AUTO 0.4 % (0.0-1.0); HEMATOCRIT 40.3 % (42.0-52.0); HEMOGLOBIN 13.7 g/dL (14.0-18.0); IMMATURE GRAN ABSOLUTE AUTO 0.18 K/uL (0.00-0.05); IMMATURE GRAN PERCENT AUTO 2.7 % (0.0-0.4); LYMPHOCYTES ABSOLUTE AUTO 1.48 K/uL (1.00-4.80); LYMPHOCYTES PERCENT AUTO 22.1 % (24.0-44.0); MEAN CORPUSCULAR HEMOGLOBIN 33.6 pg (28.0-32.0); MEAN CORPUSCULAR VOLUME 98.8 fL (83.0-99.0); MEAN PLATELET VOLUME 10.7 fL (9.4-12.4); MONOCYTES ABSOLUTE AUTO 0.51 K/uL (0.00-0.80); MONOCYTES PERCENT AUTO 7.6 % (0.0-8.0); NEUTROPHILS ABSOLUTE AUTO 4.51 K/uL (1.80-7.70); NEUTROPHILS PERCENT AUTO 67.2 % (41.0-71.0); PLATELET COUNT,PLT 161 K/uL (150-400); RED BLOOD CELL COUNT 4.08 M/uL (4.52-5.90); WHITE BLOOD CELL COUNT,WBC 6.71 K/uL (3.9-11.3)
[2023-10-30 05:44] LABS: A/G RATIO 1.1 (0.9-1.6); ALBUMIN 3.3 g/dL (3.4-5.0); BILIRUBIN TOTAL 0.5 mg/dL (0.2-1.0); CALCIUM 8.9 mg/dL (8.5-10.1); CARBON DIOXIDE,CO2 22.6 mmol/L (21.0-32.0); CREATININE 0.9 mg/dL (0.8-1.3); EST CRCL DRUG DOSING (CG) 102.9 mL/min; POTASSIUM,K 3.5 mmol/L (3.5-5.1); PROTEIN TOTAL,TP 6.3 g/dL (6.4-8.2)
[2023-10-30 06:09] VITALS: BP 118/79; PULSE 62
== END 2023-10-30 06:08 | disposition home or self-care (01) ==
LOC: MW.ED 04:07
DX: R09.89 Other specified symptoms and signs involving the circulatory and respiratory systems (principal); I25.10 Atherosclerotic heart disease of native coronary artery without angina pectoris; E78.00 Pure hypercholesterolemia, unspecified; M19.90 Unspecified osteoarthritis, unspecified site; Z79.82 Long term (current) use of aspirin; Z79.899 Other long term (current) drug therapy
CPT/HCPCS: 36415; 71045; 80053; 84484; 85025; 93005; 99283; A9270; J3490; 93010; 99282

== ENCOUNTER 2023-11-03 02:25 | Emergency (ER) | payer MEDICAID ==
[2023-11-03] MEDS ORDERED: Sodium Chloride 0.9% 10 ML Syringe FLUSH PRN (02:39)
[2023-11-03] MEDS ORDERED: Sodium Chloride 0.9% 2.5 ML Syringe FLUSH PRN (02:39)
[2023-11-03] MEDS ORDERED: Iopamidol 755 MG/ML 500 ML Multipack Bottle IVPUSH ONE ×2 (03:12→04:32)
[2023-11-03 03:15] LABS: BASOPHILS ABSOLUTE AUTO 0.04 K/uL (0.00-0.20); BASOPHILS PERCENT AUTO 0.4 % (0.0-1.0); EOSINOPHILS ABSOLUTE AUTO 0.02 K/uL (0.00-0.45); EOSINOPHILS PERCENT AUTO 0.2 % (0.0-6.0); HEMATOCRIT 41.5 % (42.0-52.0); HEMOGLOBIN 14.1 g/dL (14.0-18.0); IMMATURE GRAN PERCENT AUTO 4.3 % (0.0-0.4); LYMPHOCYTES PERCENT AUTO 23.8 % (24.0-44.0); MEAN CORPUSCULAR HEMOGLOBIN 33.3 pg (28.0-32.0); MEAN CORPUSCULAR VOLUME 97.9 fL (83.0-99.0); MEAN PLATELET VOLUME 10.4 fL (9.4-12.4); MONOCYTES ABSOLUTE AUTO 0.63 K/uL (0.00-0.80); MONOCYTES PERCENT AUTO 6.8 % (0.0-8.0); NEUTROPHILS ABSOLUTE AUTO 5.94 K/uL (1.80-7.70); NEUTROPHILS PERCENT AUTO 64.5 % (41.0-71.0); PLATELET COUNT,PLT 222 K/uL (150-400); RED BLOOD CELL COUNT 4.24 M/uL (4.52-5.90); WHITE BLOOD CELL COUNT,WBC 9.23 K/uL (3.9-11.3)
[2023-11-03 03:27] LABS: INR 1.01 (0.86-1.11)
[2023-11-03 03:41] LABS: ALBUMIN 3.5 g/dL (3.4-5.0); BILIRUBIN TOTAL 0.5 mg/dL (0.2-1.0); CALCIUM 9.1 mg/dL (8.5-10.1); CARBON DIOXIDE,CO2 27.7 mmol/L (21.0-32.0); EST CRCL DRUG DOSING (CG) 92.83 mL/min; POTASSIUM,K 3.8 mmol/L (3.5-5.1); PROTEIN TOTAL,TP 7.1 g/dL (6.4-8.2)
[2023-11-03] MEDS ORDERED: Famotidine 20 MG/2 ML SDV IVPUSH ONE (04:18)
[2023-11-03] MEDS ORDERED: Sodium Chloride 0.9% 1,000 ML IV ONE (04:28)
[2023-11-03 05:47] VITALS: BP 121/64; PULSE 59
== END 2023-11-03 05:45 | disposition home or self-care (01) ==
LOC: MW.ED 02:25
DX: R09.89 Other specified symptoms and signs involving the circulatory and respiratory systems (principal); Z86.718 Personal history of other venous thrombosis and embolism; I25.10 Atherosclerotic heart disease of native coronary artery without angina pectoris; E78.00 Pure hypercholesterolemia, unspecified; K21.9 Gastro-esophageal reflux disease without esophagitis; M06.9 Rheumatoid arthritis, unspecified; Z79.01 Long term (current) use of anticoagulants; Z86.711 Personal history of pulmonary embolism; Z79.899 Other long term (current) drug therapy; Z79.82 Long term (current) use of aspirin
CPT/HCPCS: 36415; 73706; 80053; 82550; 83880; 84484; 85025; 85610; 85730; 93005; 96374; 99285; J3490; J7030; Q9967; 93010; 99284

== ENCOUNTER 2023-11-07 03:51 | Emergency (ER) | payer MEDICAID ==
[2023-11-07] MEDS ORDERED: Sodium Chloride 0.9% 10 ML Syringe FLUSH PRN (04:24)
[2023-11-07] MEDS ORDERED: Sodium Chloride 0.9% 2.5 ML Syringe FLUSH PRN (04:24)
[2023-11-07 04:45] LABS: BASOPHILS ABSOLUTE AUTO 0.03 K/uL (0.00-0.20); BASOPHILS PERCENT AUTO 0.4 % (0.0-1.0); EOSINOPHILS ABSOLUTE AUTO 0.01 K/uL (0.00-0.45); EOSINOPHILS PERCENT AUTO 0.1 % (0.0-6.0); HEMATOCRIT 40.7 % (42.0-52.0); HEMOGLOBIN 13.5 g/dL (14.0-18.0); IMMATURE GRAN ABSOLUTE AUTO 0.18 K/uL (0.00-0.05); IMMATURE GRAN PERCENT AUTO 2.3 % (0.0-0.4); LYMPHOCYTES ABSOLUTE AUTO 1.87 K/uL (1.00-4.80); LYMPHOCYTES PERCENT AUTO 24.4 % (24.0-44.0); MEAN CORPUSCULAR HEMOGLOBIN 32.6 pg (28.0-32.0); MEAN CORPUSCULAR HGB CONC 33.2 g/dL (32.0-36.0); MEAN CORPUSCULAR VOLUME 98.3 fL (83.0-99.0); MONOCYTES ABSOLUTE AUTO 0.59 K/uL (0.00-0.80); MONOCYTES PERCENT AUTO 7.7 % (0.0-8.0); NEUTROPHILS ABSOLUTE AUTO 4.99 K/uL (1.80-7.70); NEUTROPHILS PERCENT AUTO 65.1 % (41.0-71.0); PLATELET COUNT,PLT 191 K/uL (150-400); RED BLOOD CELL COUNT 4.14 M/uL (4.52-5.90); WHITE BLOOD CELL COUNT,WBC 7.67 K/uL (3.9-11.3)
[2023-11-07 05:11] LABS: D-DIMER QUANTITATIVE 0.3 mg/L FEU (0.00-0.50)
[2023-11-07 05:13] LABS: ALBUMIN 3.3 g/dL (3.4-5.0); BILIRUBIN TOTAL 0.4 mg/dL (0.2-1.0); CALCIUM 8.8 mg/dL (8.5-10.1); CARBON DIOXIDE,CO2 26.7 mmol/L (21.0-32.0); CREATININE 0.9 mg/dL (0.8-1.3); EST CRCL DRUG DOSING (CG) 103.14 mL/min; POTASSIUM,K 3.9 mmol/L (3.5-5.1); PROTEIN TOTAL,TP 6.6 g/dL (6.4-8.2)
[2023-11-07 06:58] VITALS: BP 106/73; PULSE 69
== END 2023-11-07 06:58 | disposition home or self-care (01) ==
LOC: MW.ED 03:51
DX: R06.00 Dyspnea, unspecified (principal); K21.9 Gastro-esophageal reflux disease without esophagitis; E78.00 Pure hypercholesterolemia, unspecified; M19.90 Unspecified osteoarthritis, unspecified site; Z79.82 Long term (current) use of aspirin; Z79.899 Other long term (current) drug therapy; Z79.891 Long term (current) use of opiate analgesic; Z20.822 Contact with and (suspected) exposure to COVID-19
CPT/HCPCS: 36415; 70450; 71045; 80053; 84484; 85025; 85379; 85610; 87635; 93005; 99285; J3490; 93010; 99282; U0002

== ENCOUNTER 2023-11-20 21:31 | Emergency (ER) | payer MEDICAID ==
[2023-11-20 23:34] VITALS: BP 110/68; PULSE 91
== END 2023-11-20 23:33 | disposition home or self-care (01) ==
LOC: MW.ED 21:31
DX: R60.0 Localized edema (principal); M25.471 Effusion, right ankle; I25.10 Atherosclerotic heart disease of native coronary artery without angina pectoris; E78.00 Pure hypercholesterolemia, unspecified; K21.9 Gastro-esophageal reflux disease without esophagitis; M19.90 Unspecified osteoarthritis, unspecified site; Z79.82 Long term (current) use of aspirin; Z79.899 Other long term (current) drug therapy
CPT/HCPCS: 36415; 73610-26-RT; 73610-RT; 82550; 93971-26-RT; 93971-RT; 99282; 99284

== ENCOUNTER 2023-11-21 11:24 | Day surgery (SDC) | payer MEDICAID ==
[2023-11-21] MEDS ORDERED: Lidocaine 2% 5 ML SDV ONE (11:54)
[2023-11-21] MEDS ORDERED: Ondansetron 4 MG/2 ML SDV ONE (11:54)
[2023-11-21] MEDS ORDERED: propofoL 50 ML ONE (11:54)
[2023-11-21 14:36] VITALS: BP 130/77; PULSE 56
== END 2023-11-21 14:18 | disposition home or self-care (01) ==
LOC: MW.SDS 11:24
PROVIDERS: ATTEND Surgery
DX: K29.50 Unspecified chronic gastritis without bleeding (principal); K21.00 Gastro-esophageal reflux disease with esophagitis, without bleeding; K64.4 Residual hemorrhoidal skin tags; I25.10 Atherosclerotic heart disease of native coronary artery without angina pectoris; E78.5 Hyperlipidemia, unspecified; Z87.891 Personal history of nicotine dependence; Z86.010 Personal history of colon polyps; Z95.5 Presence of coronary angioplasty implant and graft; Z79.82 Long term (current) use of aspirin; Z79.899 Other long term (current) drug therapy
CPT/HCPCS: J2405; J2704; J3490; J7120

== ENCOUNTER 2024-01-05 23:33 | Emergency (ER) | payer MEDICAID ==
[2024-01-06] MEDS: Sodium Chloride 0.9% 10 ML Syringe FLUSH PRN (00:16)
[2024-01-06] MEDS: Sodium Chloride 0.9% 1,000 ML IV ONE (00:16)
[2024-01-06] MEDS: Sodium Chloride 0.9% 2.5 ML Syringe FLUSH PRN (00:16)
[2024-01-06 00:48] LABS: BASOPHILS ABSOLUTE AUTO 0.06 K/uL (0.00-0.20); BASOPHILS PERCENT AUTO 0.5 % (0.0-1.0); EOSINOPHILS ABSOLUTE AUTO 0.08 K/uL (0.00-0.45); EOSINOPHILS PERCENT AUTO 0.7 % (0.0-6.0); HEMATOCRIT 44.4 % (42.0-52.0); HEMOGLOBIN 14.9 g/dL (14.0-18.0); IMMATURE GRAN ABSOLUTE AUTO 0.11 K/uL (0.00-0.05); IMMATURE GRAN PERCENT AUTO 0.9 % (0.0-0.4); LYMPHOCYTES ABSOLUTE AUTO 3.06 K/uL (1.00-4.80); LYMPHOCYTES PERCENT AUTO 26.1 % (24.0-44.0); MEAN CORPUSCULAR HEMOGLOBIN 34.3 pg (28.0-32.0); MEAN CORPUSCULAR HGB CONC 33.6 g/dL (32.0-36.0); MEAN CORPUSCULAR VOLUME 102.3 fL (83.0-99.0); MEAN PLATELET VOLUME 10.7 fL (9.4-12.4); MONOCYTES ABSOLUTE AUTO 1.11 K/uL (0.00-0.80); MONOCYTES PERCENT AUTO 9.5 % (0.0-8.0); NEUTROPHILS PERCENT AUTO 62.3 % (41.0-71.0); PLATELET COUNT,PLT 178 K/uL (150-400); RED BLOOD CELL COUNT 4.34 M/uL (4.52-5.90); WHITE BLOOD CELL COUNT,WBC 11.72 K/uL (3.9-11.3)
[2024-01-06 01:14] LABS: A/G RATIO 1.2 (0.9-1.6); BILIRUBIN TOTAL 0.6 mg/dL (0.2-1.0); CALCIUM 9.4 mg/dL (8.5-10.1); CARBON DIOXIDE,CO2 22.9 mmol/L (21.0-32.0); CREATININE 1.1 mg/dL (0.8-1.3); EST CRCL DRUG DOSING (CG) 84.39 mL/min; POTASSIUM,K 3.7 mmol/L (3.5-5.1); PROTEIN TOTAL,TP 7.4 g/dL (6.4-8.2)
[2024-01-06] MEDS: Iopamidol 755 MG/ML 500 ML Multipack Bottle IVPUSH STA (01:23)
[2024-01-06] MEDS: Acetaminophen/oxyCODONE 325-10 MG Tab PO ONE (01:38)
[2024-01-06] MEDS ORDERED: Amoxicillin/Clavulanate K 875-125 MG Tab ONE (03:21)
[2024-01-06 16:53] VITALS: BP 119/82; PULSE 59
== END 2024-01-06 03:35 | disposition home or self-care (01) ==
LOC: MW.ED 23:33
DX: K11.20 Sialoadenitis, unspecified (principal); R59.0 Localized enlarged lymph nodes; E78.00 Pure hypercholesterolemia, unspecified; I25.10 Atherosclerotic heart disease of native coronary artery without angina pectoris; K21.9 Gastro-esophageal reflux disease without esophagitis; Z95.5 Presence of coronary angioplasty implant and graft; Z79.82 Long term (current) use of aspirin; Z79.899 Other long term (current) drug therapy; Z75.8 Other problems related to medical facilities and other health care
CPT/HCPCS: 36415; 70491; 80053; 85025; 86308; 96360; 99284; A9270; J3490; J7030; Q9967

== ENCOUNTER 2024-03-19 18:07 | Inpatient (IN) | payer MEDICAID ==
[2024-03-19] MEDS ORDERED: Naloxone 0.4 MG/ML SDV IVPUSH PRN ×2 (18:26→20:39)
[2024-03-19] MEDS: Sodium Chloride 0.9% 2.5 ML Syringe FLUSH PRN (18:40)
[2024-03-19] MEDS: Sodium Chloride 0.9% 10 ML Syringe FLUSH PRN (18:40)
[2024-03-19] MEDS: HYDROmorphone 0.5 MG/0.5 ML Syringe IVPUSH ONE ×2 (18:40→19:19)
[2024-03-19] MEDS: Sodium Chloride 0.9% 500 ML IV SCH (19:19)
[2024-03-19 19:34] LABS: BASOPHILS ABSOLUTE AUTO 0.05 K/uL (0.00-0.20); BASOPHILS PERCENT AUTO 0.6 % (0.0-1.0); EOSINOPHILS ABSOLUTE AUTO 0.08 K/uL (0.00-0.45); EOSINOPHILS PERCENT AUTO 0.9 % (0.0-6.0); HEMATOCRIT 44.1 % (42.0-52.0); HEMOGLOBIN 14.7 g/dL (14.0-18.0); IMMATURE GRAN ABSOLUTE AUTO 0.19 K/uL (0.00-0.05); IMMATURE GRAN PERCENT AUTO 2.2 % (0.0-0.4); LYMPHOCYTES ABSOLUTE AUTO 2.02 K/uL (1.00-4.80); LYMPHOCYTES PERCENT AUTO 23.3 % (24.0-44.0); MEAN CORPUSCULAR HEMOGLOBIN 33.3 pg (28.0-32.0); MEAN CORPUSCULAR HGB CONC 33.3 g/dL (32.0-36.0); MEAN CORPUSCULAR VOLUME 99.8 fL (83.0-99.0); MEAN PLATELET VOLUME 11.4 fL (9.4-12.4); MONOCYTES ABSOLUTE AUTO 0.91 K/uL (0.00-0.80); MONOCYTES PERCENT AUTO 10.5 % (0.0-8.0); NEUTROPHILS ABSOLUTE AUTO 5.41 K/uL (1.80-7.70); NEUTROPHILS PERCENT AUTO 62.5 % (41.0-71.0); PLATELET COUNT,PLT 147 K/uL (150-400); RED BLOOD CELL COUNT 4.42 M/uL (4.52-5.90); WHITE BLOOD CELL COUNT,WBC 8.66 K/uL (3.9-11.3)
[2024-03-19] MEDS: Iopamidol 755 Mg/ML 100 ML Bottle IVPUSH STA (19:36)
[2024-03-19 19:48] LABS: INR 1.04 (0.86-1.11)
[2024-03-19 20:05] LABS: A/G RATIO 1.1 (0.9-1.6); ALANINE AMINOTRANSFERASE,ALT 45 IU/L (14-63); ALBUMIN 3.3 g/dL (3.4-5.0); ALKALINE PHOSPHATASE 45 U/L (46-116); ASPARTATE AMNIOTRANSFERASE,AST 33 IU/L (15-37); BILIRUBIN TOTAL 0.6 mg/dL (0.2-1.0); BLOOD UREA NITROGEN,BUN 12 mg/dL (7.0-18.0); CALCIUM 8.9 mg/dL (8.5-10.1); CARBON DIOXIDE,CO2 22.9 mmol/L (21.0-32.0); CHLORIDE,CL 105 mmol/L (98-107); ETHANOL BLOOD MEDICAL <3 mg/dL; GLUCOSE RANDOM 97 mg/dL (74-106); LIPASE 26 U/L (16-77); POTASSIUM,K 3.8 mmol/L (3.5-5.1); PROTEIN TOTAL,TP 6.2 g/dL (6.4-8.2); SODIUM,NA 141 mmol/L (136-148)
[2024-03-19 20:06] LABS: LACTIC ACID 2.5 mmol/L (0.4-2.0)
[2024-03-19 20:08] LABS: ESTIMATED GFR 85 mL/min (>60)
[2024-03-19] MEDS: HYDROmorphone 1 MG/ML Syringe IVPUSH PRN (20:46)
[2024-03-19] MEDS ORDERED: Albuterol/Ipratropium 3.0-0.5 MG/3 ML Neb Soln NEB PRN (21:20)
[2024-03-19] MEDS ORDERED: Polyethylene Glycol 3350 Powder 17 GM Packet PO PRN (21:20)
[2024-03-19] MEDS ORDERED: Acetaminophen 650 MG Supp RECTAL PRN (21:20)
[2024-03-19] MEDS ORDERED: Nitroglycerin 0.4 MG Tab.SL SL PRN (21:28)
[2024-03-19] MEDS ORDERED: Non-Formulary Medication 1 Each (Sennosides [Senokot] 8.6 MG Tablet) PO SCH (21:45)
[2024-03-19 21:56] LABS: APPEARANCE,URINE CLEAR; BILIRUBIN,URINE NEGATIVE (NEGATIVE); COLOR,URINE YELLOW; GLUCOSE,URINE NEGATIVE (NEGATIVE); KETONES,URINE NEGATIVE (NEGATIVE); LEUKOCYTE ESTERASE,URINE NEGATIVE (NEGATIVE); NITRITE,URINE NEGATIVE (NEGATIVE); OCCULT BLOOD,URINE NEGATIVE (NEGATIVE); PH,URINE 5.5 (5.0-8.0); PROTEIN,URINE NEGATIVE (NEGATIVE); UROBILINOGEN,URINE 0.2 EU/dL (<2.0)
[2024-03-19 22:12] LABS: AMPHETAMINES SCREEN, URINE NEGATIVE (CUTOFF=500); BARBITURATE SCREEN,URINE NEGATIVE (CUTOFF=200); BENZODIAZEPINES SCREEN,URINE NEGATIVE (CUTOFF=150); BUPRENORPHINE SCREEN,URINE NEGATIVE (CUTOFF=10); METHADONE SCREEN, URINE NEGATIVE (CUTOFF=200); METHAMPHETAMINES SCREEN, URINE NEGATIVE (CUTOFF=500); OXYCODONE SCREEN,URINE NEGATIVE (CUT0FF=100); PCP SCREEN,URINE NEGATIVE (CUTOFF=25); THC SCREEN,URINE 20 NG/ML NEGATIVE (CUTOFF=50)
[2024-03-19] MEDS: Pantoprazole 40 MG in Sodium Chloride 0.9% 10 ML IVPUSH SCH (22:40)
[2024-03-20] MEDS: HYDROmorphone 2 MG/ML Syringe IVPUSH PRN (02:10)
[2024-03-20] MEDS: Acetaminophen 325 MG Tab PO PRN (03:44)
[2024-03-20 06:13] LABS: BASOPHILS ABSOLUTE AUTO 0.06 K/uL (0.00-0.20); BASOPHILS PERCENT AUTO 0.6 % (0.0-1.0); EOSINOPHILS PERCENT AUTO 0.9 % (0.0-6.0); HEMATOCRIT 39.1 % (42.0-52.0); HEMOGLOBIN 13.1 g/dL (14.0-18.0); IMMATURE GRAN ABSOLUTE AUTO 0.17 K/uL (0.00-0.05); IMMATURE GRAN PERCENT AUTO 1.6 % (0.0-0.4); LYMPHOCYTES ABSOLUTE AUTO 2.46 K/uL (1.00-4.80); LYMPHOCYTES PERCENT AUTO 22.8 % (24.0-44.0); MEAN CORPUSCULAR HEMOGLOBIN 32.8 pg (28.0-32.0); MEAN CORPUSCULAR HGB CONC 33.5 g/dL (32.0-36.0); MEAN CORPUSCULAR VOLUME 97.8 fL (83.0-99.0); MEAN PLATELET VOLUME 11.4 fL (9.4-12.4); MONOCYTES ABSOLUTE AUTO 1.13 K/uL (0.00-0.80); MONOCYTES PERCENT AUTO 10.5 % (0.0-8.0); NEUTROPHILS ABSOLUTE AUTO 6.89 K/uL (1.80-7.70); NEUTROPHILS PERCENT AUTO 63.6 % (41.0-71.0); PLATELET COUNT,PLT 147 K/uL (150-400); WHITE BLOOD CELL COUNT,WBC 10.81 K/uL (3.9-11.3)
[2024-03-20] MEDS: HYDROmorphone 0.5 MG/0.5 ML Syringe IVPUSH PRN (06:27)
[2024-03-20 06:44] LABS: CALCIUM 8.6 mg/dL (8.5-10.1); EST CRCL DRUG DOSING (CG) 92.83 mL/min; POTASSIUM,K 3.5 mmol/L (3.5-5.1)
[2024-03-20] MEDS: oxyCODONE 5 MG/5 ML Cup PO SCH (07:10)
[2024-03-20] MEDS: HYDROmorphone 1 MG/ML Syringe IVPUSH PRN (07:32)
[2024-03-20] MEDS: Metoprolol Succinate 25 MG Tab.ER PO SCH (08:58)
[2024-03-20] MEDS: Gabapentin 300 MG Cap PO SCH (08:59)
[2024-03-20] MEDS: Morphine 15 MG Tab.ER PO SCH (08:59)
[2024-03-20] MEDS: Sennosides 8.6 MG Tab PO SCH (08:59)
[2024-03-20] MEDS: Heparin Sodium 5,000 Units/ML Vial SUBCUT SCH (09:59)
[2024-03-20] MEDS: Polyvinyl Alcohol 1.4% Ophth Soln 15 ML Bottle EYEBOTH PRN ×2 (10:45→17:07)
[2024-03-20] MEDS: Acetaminophen/oxyCODONE 325-10 MG Tab PO PRN (12:46)
[2024-03-20] MEDS: atorvaSTATin 10 MG Tab PO SCH (20:49)
[2024-03-20] MEDS: Isosorbide Mononitrate 30 MG Tab.ER PO SCH (20:49)
[2024-03-21 06:12] LABS: BASOPHILS ABSOLUTE AUTO 0.06 K/uL (0.00-0.20); BASOPHILS PERCENT AUTO 0.6 % (0.0-1.0); EOSINOPHILS ABSOLUTE AUTO 0.16 K/uL (0.00-0.45); EOSINOPHILS PERCENT AUTO 1.7 % (0.0-6.0); HEMATOCRIT 36.9 % (42.0-52.0); HEMOGLOBIN 12.4 g/dL (14.0-18.0); IMMATURE GRAN ABSOLUTE AUTO 0.12 K/uL (0.00-0.05); IMMATURE GRAN PERCENT AUTO 1.3 % (0.0-0.4); LYMPHOCYTES ABSOLUTE AUTO 2.15 K/uL (1.00-4.80); LYMPHOCYTES PERCENT AUTO 22.5 % (24.0-44.0); MEAN CORPUSCULAR HEMOGLOBIN 32.6 pg (28.0-32.0); MEAN CORPUSCULAR HGB CONC 33.6 g/dL (32.0-36.0); MEAN CORPUSCULAR VOLUME 97.1 fL (83.0-99.0); MEAN PLATELET VOLUME 11.4 fL (9.4-12.4); MONOCYTES ABSOLUTE AUTO 1.32 K/uL (0.00-0.80); MONOCYTES PERCENT AUTO 13.8 % (0.0-8.0); NEUTROPHILS ABSOLUTE AUTO 5.73 K/uL (1.80-7.70); NEUTROPHILS PERCENT AUTO 60.1 % (41.0-71.0); PLATELET COUNT,PLT 137 K/uL (150-400); WHITE BLOOD CELL COUNT,WBC 9.54 K/uL (3.9-11.3)
[2024-03-21 06:31] LABS: CALCIUM 8.6 mg/dL (8.5-10.1); CARBON DIOXIDE,CO2 26.6 mmol/L (21.0-32.0); CREATININE 0.8 mg/dL (0.8-1.3); EST CRCL DRUG DOSING (CG) 116.03 mL/min; MAGNESIUM 1.6 mg/dL (1.8-2.4); POTASSIUM,K 3.6 mmol/L (3.5-5.1)
[2024-03-21] MEDS: Carboxymethylcellulose Sodium 0.5% Ophth Soln 0.4 ML UD Box of 30 EYEBOTH PRN (17:53)
[2024-03-21] MEDS: Magnesium Sulfate/Water 2 GM in Premix Bag 1 BAG IV ONE (19:41)
[2024-03-22 05:36] LABS: BASOPHILS ABSOLUTE AUTO 0.04 K/uL (0.00-0.20); BASOPHILS PERCENT AUTO 0.5 % (0.0-1.0); EOSINOPHILS ABSOLUTE AUTO 0.11 K/uL (0.00-0.45); EOSINOPHILS PERCENT AUTO 1.4 % (0.0-6.0); HEMATOCRIT 36.8 % (42.0-52.0); HEMOGLOBIN 12.5 g/dL (14.0-18.0); IMMATURE GRAN ABSOLUTE AUTO 0.09 K/uL (0.00-0.05); IMMATURE GRAN PERCENT AUTO 1.1 % (0.0-0.4); LYMPHOCYTES ABSOLUTE AUTO 1.74 K/uL (1.00-4.80); LYMPHOCYTES PERCENT AUTO 21.9 % (24.0-44.0); MEAN CORPUSCULAR HEMOGLOBIN 33.1 pg (28.0-32.0); MEAN CORPUSCULAR VOLUME 97.4 fL (83.0-99.0); MEAN PLATELET VOLUME 10.9 fL (9.4-12.4); MONOCYTES ABSOLUTE AUTO 0.74 K/uL (0.00-0.80); MONOCYTES PERCENT AUTO 9.3 % (0.0-8.0); NEUTROPHILS ABSOLUTE AUTO 5.24 K/uL (1.80-7.70); NEUTROPHILS PERCENT AUTO 65.8 % (41.0-71.0); PLATELET COUNT,PLT 126 K/uL (150-400); RED BLOOD CELL COUNT 3.78 M/uL (4.52-5.90); WHITE BLOOD CELL COUNT,WBC 7.96 K/uL (3.9-11.3)
[2024-03-22 05:54] LABS: CALCIUM 8.7 mg/dL (8.5-10.1); CARBON DIOXIDE,CO2 26.7 mmol/L (21.0-32.0); CREATININE 0.9 mg/dL (0.8-1.3); EST CRCL DRUG DOSING (CG) 103.14 mL/min; POTASSIUM,K 3.6 mmol/L (3.5-5.1)
[2024-03-22] MEDS ORDERED: fentaNYL 100 MCG/2 ML SDV ONE (08:55)
[2024-03-22] MEDS ORDERED: dexmedeTOMIDine HCl 200 MCG/2 ML SDV ONE (08:55)
[2024-03-22] MEDS ORDERED: propofoL 50 ML ONE (08:55)
[2024-03-22] MEDS ORDERED: Ketamine HCL/NACL, ISO-OSM 50 MG/5 ML Syringe ONE (08:56)
[2024-03-22] MEDS ORDERED: EPINEPHrine 1 MG/1 ML Amp ONE (09:00)
[2024-03-22] MEDS ORDERED: Phenylephrine 1% 10 MG/ML SDV ONE (09:05)
[2024-03-22] MEDS: ceFAZolin 2 GM in Sodium Chloride 0.9% 50 ML IV ONE (09:23)
[2024-03-22] MEDS ORDERED: Ropivacaine 0.5% 5 MG/ML 30 ML SDV ONE (09:31)
[2024-03-22] MEDS ORDERED: Lidocaine 2% 5 ML SDV ONE (09:35)
[2024-03-22] MEDS ORDERED: Tranexamic Acid 1,000 MG/10 ML Vial ONE (10:41)
[2024-03-22] MEDS ORDERED: HYDROmorphone 2 MG/ML Syringe ONE (10:52)
[2024-03-22] MEDS ORDERED: Lidocaine 2% 11 ML Jelly Filled Syringe ONE (11:53)
[2024-03-22] MEDS ORDERED: Apixaban 5 MG Tab PO SCH (16:00)
[2024-03-22] MEDS: Apixaban 5 MG Tab PO ONE (17:00)
[2024-03-22] MEDS: ceFAZolin 2 GM in Sodium Chloride 0.9% 50 ML IV SCH (19:02)
[2024-03-22] MEDS: Docusate Sodium 100 MG Cap PO SCH (21:03)
[2024-03-23] MEDS: ceFAZolin 2 GM Vial ONE (02:35)
[2024-03-23 05:49] LABS: BASOPHILS ABSOLUTE AUTO 0.02 K/uL (0.00-0.20); BASOPHILS PERCENT AUTO 0.3 % (0.0-1.0); EOSINOPHILS PERCENT AUTO 1.3 % (0.0-6.0); HEMATOCRIT 27.9 % (42.0-52.0); HEMOGLOBIN 9.5 g/dL (14.0-18.0); IMMATURE GRAN ABSOLUTE AUTO 0.06 K/uL (0.00-0.05); IMMATURE GRAN PERCENT AUTO 0.8 % (0.0-0.4); LYMPHOCYTES ABSOLUTE AUTO 1.28 K/uL (1.00-4.80); LYMPHOCYTES PERCENT AUTO 16.9 % (24.0-44.0); MEAN CORPUSCULAR HEMOGLOBIN 32.5 pg (28.0-32.0); MEAN CORPUSCULAR HGB CONC 34.1 g/dL (32.0-36.0); MEAN CORPUSCULAR VOLUME 95.5 fL (83.0-99.0); MEAN PLATELET VOLUME 11.2 fL (9.4-12.4); MONOCYTES ABSOLUTE AUTO 0.89 K/uL (0.00-0.80); MONOCYTES PERCENT AUTO 11.7 % (0.0-8.0); NEUTROPHILS ABSOLUTE AUTO 5.23 K/uL (1.80-7.70); RED BLOOD CELL COUNT 2.92 M/uL (4.52-5.90); WHITE BLOOD CELL COUNT,WBC 7.58 K/uL (3.9-11.3)
[2024-03-23 06:25] LABS: A/G RATIO 0.7 (0.9-1.6); ALBUMIN 1.7 g/dL (3.4-5.0); BILIRUBIN TOTAL 0.8 mg/dL (0.2-1.0); CARBON DIOXIDE,CO2 19.9 mmol/L (21.0-32.0); CREATININE 0.6 mg/dL (0.8-1.3); EST CRCL DRUG DOSING (CG) 154.71 mL/min; POTASSIUM,K 2.7 mmol/L (3.5-5.1)
[2024-03-23] MEDS: Apixaban 5 MG Tab PO SCH (06:30)
[2024-03-23 06:53] LABS: PLATELET COUNT,PLT 96
[2024-03-23] MEDS: Potassium Chloride 20 MEQ Tab.ER PO ONE (09:20)
[2024-03-23] MEDS: Magnesium Sulfate/Water 2 GM in Premix Bag 1 BAG IV ONE (09:21)
[2024-03-23] MEDS: [UNRECOGNIZED DRUG - OTHER] EYEBOTH PRN (09:41)
[2024-03-23] MEDS ORDERED: Potassium Chloride 100 ML IV SCH (10:30)
[2024-03-23] MEDS: NS with KCl 40mEq 1,000 ML IV ONE (11:18)
[2024-03-23 13:52] LABS: CALCIUM 8.2 mg/dL (8.5-10.1); CARBON DIOXIDE,CO2 22.8 mmol/L (21.0-32.0); CREATININE 0.9 mg/dL (0.8-1.3); EST CRCL DRUG DOSING (CG) 103.14 mL/min; POTASSIUM,K 3.8 mmol/L (3.5-5.1)
[2024-03-24 06:12] LABS: BASOPHILS ABSOLUTE AUTO 0.06 K/uL (0.00-0.20); BASOPHILS PERCENT AUTO 0.8 % (0.0-1.0); EOSINOPHILS ABSOLUTE AUTO 0.19 K/uL (0.00-0.45); EOSINOPHILS PERCENT AUTO 2.5 % (0.0-6.0); HEMATOCRIT 31.4 % (42.0-52.0); HEMOGLOBIN 10.5 g/dL (14.0-18.0); IMMATURE GRAN ABSOLUTE AUTO 0.08 K/uL (0.00-0.05); IMMATURE GRAN PERCENT AUTO 1.1 % (0.0-0.4); LYMPHOCYTES ABSOLUTE AUTO 1.62 K/uL (1.00-4.80); LYMPHOCYTES PERCENT AUTO 21.5 % (24.0-44.0); MEAN CORPUSCULAR HEMOGLOBIN 33.4 pg (28.0-32.0); MEAN CORPUSCULAR HGB CONC 33.4 g/dL (32.0-36.0); MONOCYTES ABSOLUTE AUTO 0.87 K/uL (0.00-0.80); MONOCYTES PERCENT AUTO 11.5 % (0.0-8.0); NEUTROPHILS ABSOLUTE AUTO 4.73 K/uL (1.80-7.70); NEUTROPHILS PERCENT AUTO 62.6 % (41.0-71.0); PLATELET COUNT,PLT 129 K/uL (150-400); RED BLOOD CELL COUNT 3.14 M/uL (4.52-5.90); WHITE BLOOD CELL COUNT,WBC 7.55 K/uL (3.9-11.3)
[2024-03-24 06:45] LABS: A/G RATIO 0.7 (0.9-1.6); ALBUMIN 2.2 g/dL (3.4-5.0); BILIRUBIN TOTAL 0.8 mg/dL (0.2-1.0); CALCIUM 8.2 mg/dL (8.5-10.1); CARBON DIOXIDE,CO2 22.7 mmol/L (21.0-32.0); CREATININE 0.7 mg/dL (0.8-1.3); EST CRCL DRUG DOSING (CG) 132.61 mL/min; MAGNESIUM 2.1 mg/dL (1.8-2.4); POTASSIUM,K 4.1 mmol/L (3.5-5.1); PROTEIN TOTAL,TP 5.3 g/dL (6.4-8.2)
[2024-03-24] MEDS: Polyethylene Glycol 3350 Powder 17 GM Packet PO SCH (12:03)
[2024-03-25] MEDS: Calcium Carbonate 500 MG Tab.Chew PO PRN (02:10)
[2024-03-25 07:05] LABS: BASOPHILS ABSOLUTE AUTO 0.04 K/uL (0.00-0.20); BASOPHILS PERCENT AUTO 0.5 % (0.0-1.0); EOSINOPHILS ABSOLUTE AUTO 0.25 K/uL (0.00-0.45); EOSINOPHILS PERCENT AUTO 3.3 % (0.0-6.0); HEMATOCRIT 30.2 % (42.0-52.0); HEMOGLOBIN 10.2 g/dL (14.0-18.0); IMMATURE GRAN ABSOLUTE AUTO 0.12 K/uL (0.00-0.05); IMMATURE GRAN PERCENT AUTO 1.6 % (0.0-0.4); LYMPHOCYTES ABSOLUTE AUTO 2.03 K/uL (1.00-4.80); LYMPHOCYTES PERCENT AUTO 26.8 % (24.0-44.0); MEAN CORPUSCULAR HGB CONC 33.8 g/dL (32.0-36.0); MEAN CORPUSCULAR VOLUME 97.7 fL (83.0-99.0); MEAN PLATELET VOLUME 11.9 fL (9.4-12.4); MONOCYTES ABSOLUTE AUTO 0.91 K/uL (0.00-0.80); NEUTROPHILS ABSOLUTE AUTO 4.22 K/uL (1.80-7.70); NEUTROPHILS PERCENT AUTO 55.8 % (41.0-71.0); PLATELET COUNT,PLT 129 K/uL (150-400); RED BLOOD CELL COUNT 3.09 M/uL (4.52-5.90); WHITE BLOOD CELL COUNT,WBC 7.57 K/uL (3.9-11.3)
[2024-03-25 07:28] LABS: ALBUMIN 2.2 g/dL (3.4-5.0); BILIRUBIN TOTAL 0.8 mg/dL (0.2-1.0); CALCIUM 8.6 mg/dL (8.5-10.1); CARBON DIOXIDE,CO2 25.4 mmol/L (21.0-32.0); CREATININE 0.7 mg/dL (0.8-1.3); EST CRCL DRUG DOSING (CG) 132.61 mL/min; POTASSIUM,K 4.1 mmol/L (3.5-5.1); PROTEIN TOTAL,TP 5.6 g/dL (6.4-8.2)
[2024-03-25 07:36] LABS: A/G RATIO 0.7 (0.9-1.6)
[2024-03-25] MEDS ORDERED: Non-Formulary Medication 1 Each (Turmeric [Turmeric] 400 MG Capsule) PO SCH (12:15)
[2024-03-25] MEDS ORDERED: VITAMIN B COMPLEX PO SCH (12:15)
[2024-03-25] MEDS: Ascorbic Acid 500 MG Tab PO SCH (12:38)
[2024-03-25] MEDS: Fish Oil/Omega-3 Fatty Acids 1 Gm Cap PO SCH (12:38)
[2024-03-25] MEDS: Folic Acid 1 MG Tab PO SCH (12:38)
[2024-03-25] MEDS: Cholecalciferol (Vitamin D3) 25 MCG Tab PO SCH (20:15)
[2024-03-26 06:00] LABS: BASOPHILS ABSOLUTE AUTO 0.06 K/uL (0.00-0.20); BASOPHILS PERCENT AUTO 0.8 % (0.0-1.0); EOSINOPHILS ABSOLUTE AUTO 0.22 K/uL (0.00-0.45); HEMATOCRIT 33.1 % (42.0-52.0); HEMOGLOBIN 11.1 g/dL (14.0-18.0); IMMATURE GRAN ABSOLUTE AUTO 0.09 K/uL (0.00-0.05); IMMATURE GRAN PERCENT AUTO 1.2 % (0.0-0.4); LYMPHOCYTES ABSOLUTE AUTO 1.98 K/uL (1.00-4.80); LYMPHOCYTES PERCENT AUTO 27.4 % (24.0-44.0); MEAN CORPUSCULAR HEMOGLOBIN 32.8 pg (28.0-32.0); MEAN CORPUSCULAR HGB CONC 33.5 g/dL (32.0-36.0); MEAN CORPUSCULAR VOLUME 97.9 fL (83.0-99.0); MEAN PLATELET VOLUME 10.3 fL (9.4-12.4); MONOCYTES ABSOLUTE AUTO 0.88 K/uL (0.00-0.80); MONOCYTES PERCENT AUTO 12.2 % (0.0-8.0); NEUTROPHILS PERCENT AUTO 55.4 % (41.0-71.0); PLATELET COUNT,PLT 185 K/uL (150-400); RED BLOOD CELL COUNT 3.38 M/uL (4.52-5.90); WHITE BLOOD CELL COUNT,WBC 7.23 K/uL (3.9-11.3)
[2024-03-26 06:25] LABS: A/G RATIO 0.7 (0.9-1.6); ALBUMIN 2.4 g/dL (3.4-5.0); BILIRUBIN TOTAL 0.9 mg/dL (0.2-1.0); CALCIUM 8.8 mg/dL (8.5-10.1); CARBON DIOXIDE,CO2 25.8 mmol/L (21.0-32.0); CREATININE 0.8 mg/dL (0.8-1.3); EST CRCL DRUG DOSING (CG) 116.03 mL/min; POTASSIUM,K 3.7 mmol/L (3.5-5.1)
[2024-03-26] MEDS: Ondansetron 4 MG/2 ML SDV IVPUSH PRN (11:49)
[2024-03-27 06:28] LABS: BASOPHILS ABSOLUTE AUTO 0.06 K/uL (0.00-0.20); BASOPHILS PERCENT AUTO 0.7 % (0.0-1.0); EOSINOPHILS ABSOLUTE AUTO 0.24 K/uL (0.00-0.45); EOSINOPHILS PERCENT AUTO 2.8 % (0.0-6.0); HEMATOCRIT 32.6 % (42.0-52.0); HEMOGLOBIN 10.8 g/dL (14.0-18.0); IMMATURE GRAN ABSOLUTE AUTO 0.14 K/uL (0.00-0.05); IMMATURE GRAN PERCENT AUTO 1.6 % (0.0-0.4); LYMPHOCYTES ABSOLUTE AUTO 2.47 K/uL (1.00-4.80); LYMPHOCYTES PERCENT AUTO 28.4 % (24.0-44.0); MEAN CORPUSCULAR HEMOGLOBIN 32.3 pg (28.0-32.0); MEAN CORPUSCULAR HGB CONC 33.1 g/dL (32.0-36.0); MEAN CORPUSCULAR VOLUME 97.6 fL (83.0-99.0); MEAN PLATELET VOLUME 10.4 fL (9.4-12.4); MONOCYTES ABSOLUTE AUTO 1.03 K/uL (0.00-0.80); MONOCYTES PERCENT AUTO 11.9 % (0.0-8.0); NEUTROPHILS ABSOLUTE AUTO 4.75 K/uL (1.80-7.70); NEUTROPHILS PERCENT AUTO 54.6 % (41.0-71.0); PLATELET COUNT,PLT 201 K/uL (150-400); RED BLOOD CELL COUNT 3.34 M/uL (4.52-5.90); WHITE BLOOD CELL COUNT,WBC 8.69 K/uL (3.9-11.3)
[2024-03-27 07:09] LABS: CALCIUM 8.8 mg/dL (8.5-10.1); CARBON DIOXIDE,CO2 25.3 mmol/L (21.0-32.0); CREATININE 0.8 mg/dL (0.8-1.3); EST CRCL DRUG DOSING (CG) 116.03 mL/min; POTASSIUM,K 3.9 mmol/L (3.5-5.1)
[2024-03-28] MEDS: Acetaminophen/oxyCODONE 325-10 MG Tab PO PRN (14:05)
[2024-03-29] MEDS: Pantoprazole 40 MG Tab.CR PO SCH (06:29)
[2024-03-29] MEDS: Acetaminophen/oxyCODONE 325-10 MG Tab PO PRN (15:44)
[2024-03-30] MEDS ORDERED: Calcium Carbonate 500 MG Tab.Chew PO PRN (13:04)
[2024-04-02 14:37] VITALS: BP 136/65; PULSE 92
== END 2024-04-02 12:00 | DRG 562 ==
LOC: MW.ED 18:07 → MW.MS 21:12
PROVIDERS: ADMIT Family Medicine; ATTEND Family Medicine
DX: S72.142A Displaced intertrochanteric fracture of left femur, initial encounter for closed fracture (principal); S52.502A Unspecified fracture of the lower end of left radius, initial encounter for closed fracture; I25.10 Atherosclerotic heart disease of native coronary artery without angina pectoris; M06.9 Rheumatoid arthritis, unspecified; K21.9 Gastro-esophageal reflux disease without esophagitis; M19.90 Unspecified osteoarthritis, unspecified site; E78.00 Pure hypercholesterolemia, unspecified; M81.0 Age-related osteoporosis without current pathological fracture; Z96.659 Presence of unspecified artificial knee joint; G89.29 Other chronic pain; Z79.82 Long term (current) use of aspirin; Z95.5 Presence of coronary angioplasty implant and graft; Z86.718 Personal history of other venous thrombosis and embolism; Z86.711 Personal history of pulmonary embolism; Z79.01 Long term (current) use of anticoagulants; Z79.899 Other long term (current) drug therapy; Y92.009 Unspecified place in unspecified non-institutional (private) residence as the place of occurrence of the external cause; W01.0XXA Fall on same level from slipping, tripping and stumbling without subsequent striking against object, initial encounter; Z87.442 Personal history of urinary calculi
CPT/HCPCS: 36415; 70450; 71045; 71260; 72125; 72128; 72131; 72170; 73030; 73110; 73552; 74177; 80053; 80307; 83605; 83690; 84484; 85025; 85610; 93005; 96361; 96374; 96376; 99285; J1170 ×3; J3490; J7040; Q9967; 80048; 80305-QW; 81003; 83735; 85730; 93010; 97110-GO; 97110-GP; 97163-GP; 97165-GO; 97530-GP; A9270-GY; C9113; J0131; J0171; J0690; J1644; J2371; J2405; J2704; J2795; J3010; J3475; J3480

== ENCOUNTER 2024-05-24 05:47 | Emergency (ER) | payer MEDICAID ==
[2024-05-24 06:05] LABS: BASOPHILS ABSOLUTE AUTO 0.04 K/uL (0.00-0.20); BASOPHILS PERCENT AUTO 0.5 % (0.0-1.0); EOSINOPHILS ABSOLUTE AUTO 0.14 K/uL (0.00-0.45); EOSINOPHILS PERCENT AUTO 1.6 % (0.0-6.0); HEMATOCRIT 42.3 % (42.0-52.0); HEMOGLOBIN 13.7 g/dL (14.0-18.0); IMMATURE GRAN ABSOLUTE AUTO 0.02 K/uL (0.00-0.05); IMMATURE GRAN PERCENT AUTO 0.2 % (0.0-0.4); LYMPHOCYTES ABSOLUTE AUTO 4.81 K/uL (1.00-4.80); LYMPHOCYTES PERCENT AUTO 55.7 % (24.0-44.0); MEAN CORPUSCULAR HEMOGLOBIN 31.9 pg (28.0-32.0); MEAN CORPUSCULAR HGB CONC 32.4 g/dL (32.0-36.0); MEAN CORPUSCULAR VOLUME 98.6 fL (83.0-99.0); MEAN PLATELET VOLUME 11.3 fL (9.4-12.4); MONOCYTES ABSOLUTE AUTO 0.62 K/uL (0.00-0.80); MONOCYTES PERCENT AUTO 7.2 % (0.0-8.0); NEUTROPHILS ABSOLUTE AUTO 3.01 K/uL (1.80-7.70); NEUTROPHILS PERCENT AUTO 34.8 % (41.0-71.0); PLATELET COUNT,PLT 165 K/uL (150-400); RED BLOOD CELL COUNT 4.29 M/uL (4.52-5.90); WHITE BLOOD CELL COUNT,WBC 8.64 K/uL (3.9-11.3)
[2024-05-24] MEDS ORDERED: Iopamidol 755 MG/ML 500 ML Multipack Bottle IVPUSH STA (06:21)
[2024-05-24] MEDS: Sodium Chloride 0.9% 1,000 ML IV STA (06:22)
[2024-05-24] MEDS: Ondansetron 4 MG/2 ML SDV IVPUSH ONE ×2 (06:23→07:22)
[2024-05-24] MEDS: Sodium Chloride 0.9% 10 ML Syringe FLUSH PRN (06:24)
[2024-05-24] MEDS: Sodium Chloride 0.9% 2.5 ML Syringe FLUSH PRN (06:24)
[2024-05-24 06:32] LABS: A/G RATIO 1.1 (0.9-1.6); ALBUMIN 3.5 g/dL (3.4-5.0); BILIRUBIN TOTAL 0.5 mg/dL (0.2-1.0); CALCIUM 8.4 mg/dL (8.5-10.1); CARBON DIOXIDE,CO2 24.5 mmol/L (21.0-32.0); CREATININE 0.9 mg/dL (0.8-1.3); EST CRCL DRUG DOSING (CG) 103.14 mL/min; MAGNESIUM 1.9 mg/dL (1.8-2.4); POTASSIUM,K 3.5 mmol/L (3.5-5.1); PROTEIN TOTAL,TP 6.6 g/dL (6.4-8.2)
[2024-05-24 07:13] LABS: APPEARANCE,URINE CLEAR; BILIRUBIN,URINE NEGATIVE (NEGATIVE); COLOR,URINE YELLOW; GLUCOSE,URINE NEGATIVE (NEGATIVE); KETONES,URINE NEGATIVE (NEGATIVE); LEUKOCYTE ESTERASE,URINE NEGATIVE (NEGATIVE); NITRITE,URINE NEGATIVE (NEGATIVE); OCCULT BLOOD,URINE NEGATIVE (NEGATIVE); PROTEIN,URINE NEGATIVE (NEGATIVE); UROBILINOGEN,URINE 0.2 EU/dL (<2.0)
[2024-05-24] MEDS: Iopamidol 755 MG/ML 500 ML Multipack Bottle IVPUSH STA (10:18)
[2024-05-24 11:19] VITALS: PULSE 64
[2024-05-24 17:13] VITALS: BP 142/82
== END 2024-05-24 14:15 | disposition home or self-care (01) ==
LOC: MW.ED 05:47
DX: R07.9 Chest pain, unspecified (principal); R42 Dizziness and giddiness; I25.10 Atherosclerotic heart disease of native coronary artery without angina pectoris; K21.9 Gastro-esophageal reflux disease without esophagitis; M19.90 Unspecified osteoarthritis, unspecified site; Z79.82 Long term (current) use of aspirin; Z79.899 Other long term (current) drug therapy; Z75.8 Other problems related to medical facilities and other health care
CPT/HCPCS: 36415; 70450; 70496; 70498; 71045; 80053; 81003; 83735; 84484; 85025; 93005; 96361; 96374; 96376; 99285; J2405; J3490; J7030; Q9967

== ENCOUNTER 2024-11-02 13:40 | Emergency (ER) | payer MEDICAID ==
[2024-11-02 14:10] VITALS: BP 133/79; PULSE 66
[2024-11-02] MEDS: Aluminum Hydroxide/Magnesium Hydroxide/Simethicone Susp 30 ML Cup PO ONE (14:24)
== END 2024-11-02 16:12 | disposition home or self-care (01) ==
LOC: MW.ED 13:40
DX: R09.89 Other specified symptoms and signs involving the circulatory and respiratory systems (principal); I25.10 Atherosclerotic heart disease of native coronary artery without angina pectoris; K21.9 Gastro-esophageal reflux disease without esophagitis; E78.00 Pure hypercholesterolemia, unspecified; Z79.82 Long term (current) use of aspirin; Z79.899 Other long term (current) drug therapy
CPT/HCPCS: 71046; 99284; A9270

== ENCOUNTER 2025-05-26 01:02 | Emergency (ER) | payer MEDICAID ==
[2025-05-26 01:26] LABS: BASOPHILS ABSOLUTE AUTO 0.05 K/uL (0.00-0.20); BASOPHILS PERCENT AUTO 0.5 % (0.0-1.0); EOSINOPHILS ABSOLUTE AUTO 0.38 K/uL (0.00-0.45); EOSINOPHILS PERCENT AUTO 4.1 % (0.0-6.0); HEMATOCRIT 41.5 % (42.0-52.0); HEMOGLOBIN 13.7 g/dL (14.0-18.0); IMMATURE GRAN ABSOLUTE AUTO 0.05 K/uL (0.00-0.05); IMMATURE GRAN PERCENT AUTO 0.5 % (0.0-0.4); LYMPHOCYTES ABSOLUTE AUTO 3.95 K/uL (1.00-4.80); LYMPHOCYTES PERCENT AUTO 42.4 % (24.0-44.0); MEAN CORPUSCULAR HEMOGLOBIN 32.1 pg (28.0-32.0); MEAN CORPUSCULAR VOLUME 97.2 fL (83.0-99.0); MEAN PLATELET VOLUME 11.2 fL (9.4-12.4); MONOCYTES ABSOLUTE AUTO 0.79 K/uL (0.00-0.80); MONOCYTES PERCENT AUTO 8.5 % (0.0-8.0); NEUTROPHILS ABSOLUTE AUTO 4.09 K/uL (1.80-7.70); PLATELET COUNT,PLT 143 K/uL (150-400); RED BLOOD CELL COUNT 4.27 M/uL (4.52-5.90); WHITE BLOOD CELL COUNT,WBC 9.31 K/uL (3.9-11.3)
[2025-05-26 01:51] LABS: A/G RATIO 1.7 (0.9-1.6); BILIRUBIN TOTAL 0.5 mg/dL (0.2-1.0); CALCIUM 8.8 mg/dL (8.5-10.1); CARBON DIOXIDE,CO2 30.2 mmol/L (21.0-32.0); CREATININE 1.3 mg/dL (0.8-1.3); EST CRCL DRUG DOSING (CG) 70.48 mL/min; POTASSIUM,K 3.3 mmol/L (3.5-5.1); PROTEIN TOTAL,TP 6.4 g/dL (6.4-8.2)
[2025-05-26] MEDS: Iopamidol 755 Mg/ML 100 ML Bottle IVPUSH ONE (02:28)
[2025-05-26] MEDS: Alum Hydrox/Mag Hydrox/Simeth 15 ML, Metoclopramide 5 MG, Lidocaine 2% 5 ML PO ONE (03:09)
[2025-05-26 03:32] VITALS: BP 119/78; PULSE 58
== END 2025-05-26 03:32 | disposition home or self-care (01) ==
LOC: MW.ED 01:02
DX: K85.80 Other acute pancreatitis without necrosis or infection (principal); E78.00 Pure hypercholesterolemia, unspecified; I25.10 Atherosclerotic heart disease of native coronary artery without angina pectoris; K21.9 Gastro-esophageal reflux disease without esophagitis; Z95.5 Presence of coronary angioplasty implant and graft; Z79.82 Long term (current) use of aspirin; Z79.899 Other long term (current) drug therapy
CPT/HCPCS: 36415; 71045; 74177; 80053; 83690; 84484; 85025; 93005; 99285; A9270; Q9967; 93010; 99283

== ENCOUNTER 2025-06-10 16:02 | Emergency (ER) | payer MEDICAID ==
[2025-06-10] MEDS ORDERED: Sodium Chloride 0.9% 2.5 ML Syringe FLUSH PRN (16:12)
[2025-06-10] MEDS ORDERED: Sodium Chloride 0.9% 10 ML Syringe FLUSH PRN (16:12)
[2025-06-10] MEDS: Iopamidol 755 MG/ML 500 ML Multipack Bottle IVPUSH STA (16:45)
[2025-06-10 16:52] LABS: BASOPHILS ABSOLUTE AUTO 0.06 K/uL (0.00-0.20); BASOPHILS PERCENT AUTO 0.7 % (0.0-1.0); EOSINOPHILS ABSOLUTE AUTO 0.23 K/uL (0.00-0.45); EOSINOPHILS PERCENT AUTO 2.7 % (0.0-6.0); IMMATURE GRAN ABSOLUTE AUTO 0.05 K/uL (0.00-0.05); IMMATURE GRAN PERCENT AUTO 0.6 % (0.0-0.4); LYMPHOCYTES ABSOLUTE AUTO 1.56 K/uL (1.00-4.80); LYMPHOCYTES PERCENT AUTO 18.5 % (24.0-44.0); MEAN PLATELET VOLUME 11.1 fL (9.4-12.4); MONOCYTES ABSOLUTE AUTO 0.70 K/uL (0.00-0.80); MONOCYTES PERCENT AUTO 8.3 % (0.0-8.0); NEUTROPHILS ABSOLUTE AUTO 5.83 K/uL (1.80-7.70); NEUTROPHILS PERCENT AUTO 69.2 % (41.0-71.0); NRBC ABSOLUTE 0.00 K/uL (0.00-0.02); NRBC PERCENT 0.0 /100WBC (0.0-0.2); PLATELET COUNT,PLT 143 K/uL (150-400); RED BLOOD CELL COUNT 4.11 M/uL (4.52-5.90); WHITE BLOOD CELL COUNT,WBC 8.43 K/uL (3.9-11.3)
[2025-06-10 17:25] LABS: BLOOD UREA NITROGEN,BUN 12 mg/dL (7.0-18.0); CARBON DIOXIDE,CO2 28.6 mmol/L (21.0-32.0); CHLORIDE,CL 107 mmol/L (98-107); CREATININE 1.1 mg/dL (0.8-1.3); ESTIMATED GFR 75 mL/min (>60); GLUCOSE RANDOM 124 mg/dL (74-106); POTASSIUM,K 3.5 mmol/L (3.5-5.1); SODIUM,NA 142 mmol/L (136-148)
[2025-06-10 18:56] VITALS: BP 140/67; PULSE 62
== END 2025-06-10 19:20 ==
LOC: MW.ED 16:02
DX: G45.9 Transient cerebral ischemic attack, unspecified (principal); E78.00 Pure hypercholesterolemia, unspecified; K21.9 Gastro-esophageal reflux disease without esophagitis; M19.90 Unspecified osteoarthritis, unspecified site; Z79.01 Long term (current) use of anticoagulants; Z79.82 Long term (current) use of aspirin; Z79.899 Other long term (current) drug therapy
CPT/HCPCS: 36415; 70450; 70496; 70498; 80048; 82947; 84484; 85025; 93005; 99285; A9270; Q9967

== ENCOUNTER 2025-10-08 01:37 | Emergency (ER) | payer MEDICARE, MEDICAID ==
[2025-10-08 02:05] LABS: BASOPHILS ABSOLUTE AUTO 0.04 K/uL (0.00-0.20); BASOPHILS PERCENT AUTO 0.6 % (0.0-1.0); EOSINOPHILS ABSOLUTE AUTO 0.21 K/uL (0.00-0.45); EOSINOPHILS PERCENT AUTO 3.3 % (0.0-6.0); IMMATURE GRAN ABSOLUTE AUTO 0.02 K/uL (0.00-0.05); IMMATURE GRAN PERCENT AUTO 0.3 % (0.0-0.4); LYMPHOCYTES ABSOLUTE AUTO 2.61 K/uL (1.00-4.80); LYMPHOCYTES PERCENT AUTO 40.5 % (24.0-44.0); MEAN PLATELET VOLUME 11.1 fL (9.4-12.4); MONOCYTES ABSOLUTE AUTO 0.65 K/uL (0.00-0.80); MONOCYTES PERCENT AUTO 10.1 % (0.0-8.0); NEUTROPHILS ABSOLUTE AUTO 2.92 K/uL (1.80-7.70); NEUTROPHILS PERCENT AUTO 45.2 % (41.0-71.0); NRBC ABSOLUTE 0.00 K/uL (0.00-0.02); NRBC PERCENT 0.0 /100WBC (0.0-0.2); PLATELET COUNT,PLT 116 K/uL (150-400); RED BLOOD CELL COUNT 4.25 M/uL (4.52-5.90); WHITE BLOOD CELL COUNT,WBC 6.45 K/uL (3.9-11.3)
[2025-10-08 02:23] LABS: BLOOD UREA NITROGEN,BUN 9.0 mg/dL (7.0-18.0); CARBON DIOXIDE,CO2 24.8 mmol/L (21.0-32.0); CHLORIDE,CL 106.0 mmol/L (98-107); CREATININE 1.0 mg/dL (0.8-1.3); EST CRCL DRUG DOSING (CG) 90.42 mL/min; ESTIMATED GFR 84.0 mL/min (>60); GLUCOSE RANDOM 107.0 mg/dL (74-106); POTASSIUM,K 3.4 mmol/L (3.5-5.1); SODIUM,NA 143.0 mmol/L (136-148)
[2025-10-08 05:04] VITALS: BP 110/63; PULSE 69
== END 2025-10-08 05:35 | disposition home or self-care (01) ==
LOC: MW.ED 01:37
DX: I20.9 Angina pectoris, unspecified (principal); K21.9 Gastro-esophageal reflux disease without esophagitis; E78.00 Pure hypercholesterolemia, unspecified; Z79.82 Long term (current) use of aspirin; Z79.899 Other long term (current) drug therapy
CPT/HCPCS: 36415; 71045; 71045-26; 80048; 84484; 85025; 93005; 99285

== ENCOUNTER 2025-10-14 08:44 | Day surgery (SDC) | payer MEDICARE, MEDICAID ==
[2025-10-14] MEDS: Lactated Ringers 1,000 ML IV SCH (09:10)
[2025-10-14] MEDS ORDERED: propofoL 500 MG/50 ML 50 ML ONE (10:39)
[2025-10-14 12:45] VITALS: BP 117/77; PULSE 59
== END 2025-10-14 13:05 | disposition home or self-care (01) ==
LOC: MW.SDS 08:44
PROVIDERS: ATTEND Surgery
DX: D12.2 Benign neoplasm of ascending colon (principal); K29.50 Unspecified chronic gastritis without bleeding; K52.9 Noninfective gastroenteritis and colitis, unspecified; K57.30 Diverticulosis of large intestine without perforation or abscess without bleeding; K64.8 Other hemorrhoids; I25.10 Atherosclerotic heart disease of native coronary artery without angina pectoris; I10 Essential (primary) hypertension; Z79.82 Long term (current) use of aspirin; Z79.01 Long term (current) use of anticoagulants; Z79.899 Other long term (current) drug therapy
CPT/HCPCS: 00813; 88305; J2003; J2704; J7120